=== PATIENT | male | born 1940 | race Caucasian/White ===

== ENCOUNTER 2016-01-06 08:20 | Outpatient (RCR) | payer MEDICARE ==
--- OUTSIDE RECORDS SUMMARY | 2015-12-18 12:53 | XMS REPORT ---
Author Author NIKITA LOWERY [facility] Address [address] [facility] [address] [place], [place] [id number] Care Team Providers Care Director Account Management Name Role Phone Eli LOWERY PCP Unavailable Allergies and Adverse Reactions Name Reaction Notes NO KNOWN DRUG ALLERGIES Plan of Treatment Not available. Medications Active Name Start Date Estimated Completion Date SIG Comments amitriptyline 100 mg oral tablet 01/17/2012 USE DIRECTED AT BEDTIME gabapentin 300 mg oral capsule 08/06/2013 TAKE ONE CAPSULE BY MOUTH THREE TIMES DAILY metformin 500 mg oral tablet 12/04/2013 TAKE ONE TABLET BY MOUTH TWICE DAILY gabapentin 300 mg oral capsule 12/04/2013 TAKE ONE CAPSULE BY MOUTH THREE TIMES DAILY Glucometer-M 04/21/2014 check sugars daily metformin 500 mg oral tablet 09/30/2014 TAKE ONE TABLET BY MOUTH TWICE DAILY gabapentin 300 mg oral capsule 12/19/2014 TAKE 1 CAPSULE THREE TIMES DAILY metformin 500 mg oral tablet 12/19/2014 TAKE 1 TABLET TWICE DAILY amitriptyline 100 mg oral tablet 02/27/2015 take 1 tablet (100 mg) by oral route once daily at bedtime lisinopril 20 mg oral tablet 02/27/2015 take 1 tablet (20 mg) by oral route once daily lisinopril 20 mg oral tablet 02/27/2015 TAKE 1 TABLET ONE TIME DAILY lisinopril 20 mg oral tablet 09/09/2015 TAKE 1 TABLET ONE TIME DAILY Cipro 500 mg oral tablet 10/20/2015 take 1 tablet (500 mg) by oral route 2 times per day Keflex 500 mg oral capsule 10/20/2015 take 1 capsule by oral route 3 times a day Name Start Date Expiration Date SIG Comments Ambien 10 mg oral tablet 03/31/2009 04/30/2009 1HSPRN FOR INSOMNIA - TAKE ONE TABLET BY MOUTH AT BEDTIME NEEDED FOR INSOMNIA ELAVIL 100MG TAB 100 each 07/31/2009 10/29/2009 FF USE DIRECTED AT BEDTIME - USE DIRECTED AT BEDTIME Neurontin 300 mg oral capsule 02/02/2010 05/03/2010 1TID - TAKE ONE CAPSULE BY MOUTH THREE TIMES DAILY AMBIEN 10MG TAB 10 each 07/06/2010 08/05/2010 1HSPRN FOR INSOMNIA - TAKE ONE TABLET BY MOUTH AT BEDTIME NEEDED FOR INSOMNIA Glucophage 500 mg oral tablet 07/13/2010 10/11/2010 1BID - TAKE ONE TABLET BY MOUTH TWICE DAILY Phenergan-Codeine 6.25-10 mg/5 mL oral syrup 03/02/2012 take 5 milliliters by oral route 4 times a day Zithromax Z-Lorne 250 mg oral tablet 12/25/2012 take 2 tablets (500 mg) by oral route once daily for 1 day then 1 tablet (250 mg) by oral route once daily for 4 days metformin 500 mg oral tablet 09/25/2012 12/24/2012 TAKE ONE TABLET BY MOUTH TWICE DAILY gabapentin 300 mg oral capsule 10/30/2012 01/28/2013 TAKE ONE CAPSULE BY MOUTH THREE TIMES DAILY zolpidem 10 mg oral tablet 02/27/2015 06/27/2015 TAKE ONE TABLET BY MOUTH AT BEDTIME NEEDED FOR INSOMNIA Cipro 500 mg oral tablet 10/03/2015 10/10/2015 take 1 tablet (500 mg) by oral route every 12 hours for 7 days Levaquin 500 mg oral tablet 10/15/2015 10/22/2015 take 1 tablet (500 mg) by oral route once daily for 7 days Discontinued Name Start Date Discontinued Date SIG Comments lisinopril 5 mg oral tablet 03/02/2012 12/28/2013 take 1 tablet (5 mg) by oral route once daily taking 40mg finasteride 5 mg oral tablet 01/01/2014 10/29/2014 take 1 tablet (5 mg) by oral route once daily Problem List Description Status Onset Diabetes Mellitus, Type II Active Neuropathy, Peripheral Active Benign localized hyperplasia of prostate without urinary obstruction and other lower urinary tract symptoms (LUTS) Active Hyperlipidemia, mixed Active Difficulty in urination Active 11/05/2013 Microalbuminuria due to type 2 diabetes mellitus Active 04/21/2014 History of diverticulosis Active 06/10/2014 Blood in the urine Active 10/29/2014 Bladder outflow obstruction Active 10/29/2014 Spermatocele Active 10/29/2014 Vital Signs Date Time BP-Sys(mm[Hg] BP-Haydee(mm[Hg]) HR(bpm) RR(rpm) Temp WT HT HC BMI BSA BMI Percentile O2 Sat(%) 10/15/2015 1:20:00 PM 110 mmHg 55 mmHg 98 bpm 18 rpm 95.5 F 229 lbs 70 in 32.86 kg/m2 2.26 m2 95 % 10/03/2015 6:37:00 PM 144 mmHg 74 mmHg 122 bpm 20 rpm 103.2 F 232 lbs 70 in 33.2882 kg/m 2.2798 m 94 % 09/01/2015 9:42:00 AM 140 mmHg 90 mmHg 105 bpm 18 rpm 98.4 F 231 lbs 70 in 33.14 kg/m2 2.27 m2 96 % 10/29/2014 7:59:00 AM 210 lbs 70 in 30.1316 kg/m 2.169 m 09/04/2014 8:45:00 AM 140 mmHg 80 mmHg 102 bpm 18 rpm 98.5 F 216 lbs 70.5 in 30.55 kg/m2 2.21 m2 97 % 06/26/2014 1:01:00 PM 140 mmHg 70 mmHg 103 bpm 18 rpm 96.4 F 211 lbs 70 in 30.275 kg/m 2.1742 m 95 % 06/06/2014 9:11:00 AM 120 mmHg 80 mmHg 88 bpm 18 rpm 97.7 F 216 lbs 70 in 30.99 kg/m2 2.20 m2 98 % 06/04/2014 8:55:00 AM 220 lbs 70.5 in 31.1202 kg/m 2.2279 m 04/30/2014 8:50:00 AM 150 mmHg 90 mmHg 96 bpm 18 rpm 97.9 F 218 lbs 70.5 in 30.84 kg/m2 2.22 m2 97 % 04/18/2014 2:08:00 PM 145 mmHg 85 mmHg 84 bpm 18 rpm 96.3 F 222 lbs 70.5 in 31.4031 kg/m 2.2381 m 97 % 11/05/2013 9:27:00 AM 220 lbs 70 in 31.57 kg/m2 2.22 m2 04/27/2013 12:56:00 PM 140 mmHg 74 mmHg 88 bpm 20 rpm 95.6 F 228 lbs 70 in 32.7143 kg/m 2.26 m 98 % 12/22/2012 9:18:00 AM 136 mmHg 64 mmHg 112 bpm 20 rpm 98.9 F 225 lbs 70 in 32.28 kg/m2 2.25 m2 96 % 03/02/2012 7:56:00 AM 144 mmHg 76 mmHg 100 bpm 16 rpm 96.2 F 220.312 lbs 70 in 31.6112 kg/m 2.2216 m 97 % 01/17/2012 8:03:00 AM 152 mmHg 80 mmHg 100 bpm 20 rpm 97.2 F 240 lbs 70 in 34.4361 kg/m 2.32 m2 97 % 05/11/2011 8:38:00 AM 140 mmHg 82 mmHg 86 bpm 227 lbs 70 in 32.57 kg/m2 2.2551 m 97 % 06/16/2009 8:58:00 AM 128 mmHg 80 mmHg 84 bpm 220 lbs 70 in 31.5664 kg/m 2.22 m2 Social History Name Description Comments Tobacco Former smoker some college Alcohol Use - Occasional Active but no formal exercise History of Procedures Date Ordered Description Order Status 10/20/2015 12:00 AM COMPLETE CBC W/AUTO DIFF WBC Returned 10/20/2015 12:00 AM COMPREHEN METABOLIC PANEL Returned 10/20/2015 12:00 AM GLYCOSYLATED HEMOGLOBIN TEST Returned 10/20/2015 12:00 AM LIPID PANEL Returned 10/20/2015 12:00 AM Prostate Cancer Screening Returned 10/20/2015 12:00 AM CREATININE OTHER SOURCE Returned 10/20/2015 12:00 AM ALBUMIN URINE MICROALBUMIN QUANTIATIVE Returned 05/11/2011 12:00 AM ROUTINE VENIPUNCTURE Reviewed 05/11/2011 12:00 AM COMPLETE CBC W/AUTO DIFF WBC Returned 05/11/2011 12:00 AM COMPREHEN METABOLIC PANEL Returned 05/11/2011 12:00 AM LIPID PANEL Returned 05/11/2011 12:00 AM GLYCOSYLATED HEMOGLOBIN TEST Returned 05/11/2011 12:00 AM MICROALBUMIN SEMIQUANT Returned 05/11/2011 12:00 AM ASSAY OF PSA TOTAL Returned 05/11/2011 12:00 AM URINALYSIS AUTO W/O SCOPE Reviewed 05/11/2011 12:00 AM Prostate Cancer Screening PSA Reviewed 03/02/2012 12:00 AM THER/PROPH/DIAG INJ SC/IM Reviewed 03/02/2012 12:00 AM Decadron, Per 1 Mg [facility]# [address]-24 Reviewed 03/02/2012 12:00 AM Depo-Medrol, Per 80 Mg [facility]#4657-7876-91 Reviewed 03/02/2012 12:00 AM Rocephin 1 gram [facility]#6949-0619-15 Reviewed 06/16/2009 12:00 AM URINALYSIS AUTO W/O SCOPE Reviewed 12/22/2012 12:00 AM THER/PROPH/DIAG INJ SC/IM Reviewed 12/22/2012 12:00 AM Decadron, Per 1 Mg [facility]# [address]-34 Reviewed 12/22/2012 12:00 AM Depo-Medrol, Per 80 Mg [facility]#9604-8554-44 Reviewed 04/27/2013 12:00 AM COMPLETE CBC W/AUTO DIFF WBC Reviewed 04/27/2013 12:00 AM COMPREHEN METABOLIC PANEL Reviewed 04/27/2013 12:00 AM GLYCOSYLATED HEMOGLOBIN TEST Reviewed 04/27/2013 12:00 AM LIPID PANEL Reviewed 04/27/2013 12:00 AM MICROALBUMIN QUANTITATIVE Reviewed 04/27/2013 12:00 AM ASSAY OF PSA TOTAL Reviewed 04/27/2013 12:00 AM ROUTINE VENIPUNCTURE Reviewed 04/27/2013 12:00 AM URINALYSIS AUTO W/O SCOPE Reviewed 04/27/2013 12:00 AM URINALYSIS AUTO W/O SCOPE Reviewed 11/05/2013 10:34 AM URINALYSIS AUTO W/O SCOPE Reviewed 11/05/2013 12:00 AM ASSAY OF PSA TOTAL Reviewed 04/10/2014 12:00 AM COMPLETE CBC W/AUTO DIFF WBC Reviewed 04/10/2014 12:00 AM COMPREHEN METABOLIC PANEL Reviewed 04/10/2014 12:00 AM GLYCOSYLATED HEMOGLOBIN TEST Reviewed 04/10/2014 12:00 AM LIPID PANEL Reviewed 04/10/2014 12:00 AM CREATININE OTHER SOURCE Reviewed 04/10/2014 12:00 AM ALBUMIN URINE MICROALBUMIN QUANTIATIVE Reviewed 04/30/2014 12:00 AM Dermatology Consult Reviewed 04/30/2014 12:00 AM DESTRUCT PREMALG LES 2-14 Reviewed 06/04/2014 12:00 AM ASSAY OF PSA TOTAL Reviewed 06/04/2014 12:00 AM ASSAY OF CREATININE Reviewed 06/26/2014 12:00 AM THER/PROPH/DIAG INJ SC/IM Reviewed 06/26/2014 12:00 AM Decadron, Per 1 Mg [facility]# [address]-35 Reviewed 06/26/2014 12:00 AM Depo-Medrol, Per 80 Mg [facility]#2771-4237-85 Reviewed 06/26/2014 12:00 AM Rocephin 1 gram [facility]#0163-4099-15 Reviewed 10/29/2014 12:00 AM ASSAY OF PSA TOTAL Reviewed 10/29/2014 8:48 AM URINALYSIS AUTO W/O SCOPE Reviewed Results Summary Data and Description Results 05/11/2011 3:45 PM WBC 5.4 RBC 4.85 HGB 13.90 g/dLHCT 41.10 %MCV 85.0 fLMCH 28.70 pgMCHC 33.80 g/dLRDW CV 13.70 %MPV 10.30 fLPLT 256 %NEUT 53.30 %%LYMP 28.80 %%MONO 13.60 %%EOS 3.90 %%BASO 0.40 %#NEUT 2.85 #LYMP 1.54 #MONO 0.73 # EOS 0.21 #BASO 0.02 GLUCOSE 108.0 mg/dLSODIUM 138.0 mmol/LPOTASSIUM 4.60 mmol/ LCHLORIDE 102.0 mmol/LCO2 27.0 mmol/LBUN 16.0 mg/dLCREATININE 0.90 mg/dLSGOT/ AST 18.0 IU/LSGPT/ALT 16.0 IU/LALK PHOS 85.0 IU/LTOTAL PROTEIN 7.10 g/dLALBUMIN 4.30 g/dLTOTAL BILI 0.30 mg/dLCALCIUM 9.30 mg/dLeGFR >60 mL/min/1.73 [id number] 88.0 mg/dLCHOLESTEROL 207.0 mg/dLHDL 36.0 mg/dLLDL (CALC) 153.0 mg/dLCREAT UR 157.70 mg/dLMICROALBUMIN UR 28.0 ug/mLALB:CREAT RATIO 18 PSA TOTAL 0.390 ng/mL 01/14/2012 7:02 AM WBC 5.2 RBC 4.60 HGB 13.0 g/dLHCT 39.20 %MCV 85.0 fLMCH 28.30 pgMCHC 33.20 g/dLRDW CV 13.60 %MPV 9.10 fLPLT 330 %NEUT 62.90 %%LYMP 25.90 %%MONO 8.10 %%EOS 2.70 %%BASO 0.40 %#NEUT 3.25 #LYMP 1.34 #MONO 0.42 #EOS 0.14 #BASO 0.02 GLUCOSE 121.0 mg/dLSODIUM 135.0 mmol/LPOTASSIUM 4.40 mmol/ LCHLORIDE 103.0 mmol/LCO2 26.0 mmol/LBUN 15.0 mg/dLCREATININE 1.0 mg/dLSGOT/AST 19.0 IU/LSGPT/ALT 16.0 IU/LALK PHOS 91.0 IU/LTOTAL PROTEIN 7.50 g/dLALBUMIN 4.0 g/dLTOTAL BILI 0.30 mg/dLCALCIUM 9.60 mg/dLeGFR 60 CREAT UR 127.10 mg/ dLMICROALBUMIN UR 14.0 ug/mLALB:CREAT RATIO 11 01/14/2012 7:20 AM TRIGLYCERIDES 95.0 mg/dLCHOLESTEROL 220.0 mg/dLHDL 32.0 mg/ dLLDL (CALC) 169.0 mg/dL 04/27/2013 2:51 PM Est Avg Glucose 134.1 mg/dLWBC 5.5 RBC 4.97 HGB 13.90 g/ dLHCT 42.0 %MCV 85.0 fLMCH 28.0 pgMCHC 33.10 g/dLRDW CV 14.10 %MPV 9.90 fLPLT 275 %NEUT 57.90 %%LYMP 28.70 %%MONO 11.20 %%EOS 2.0 %%BASO 0.20 %#NEUT 3.17 # LYMP 1.57 #MONO 0.61 #EOS 0.11 #BASO 0.01 GLUCOSE 117.0 mg/dLSODIUM 137.0 mmol/ LPOTASSIUM 4.80 mmol/LCHLORIDE 102.0 mmol/LCO2 25.0 mmol/LBUN 19.0 mg/ dLCREATININE 1.0 mg/dLSGOT/AST 32.0 IU/LSGPT/ALT 28.0 IU/LALK PHOS 85.0 IU/ LTOTAL PROTEIN 7.30 g/dLALBUMIN 4.30 g/dLTOTAL BILI 0.50 mg/dLCALCIUM 9.40 mg/ dLeGFR >60 mL/min/1.73 [id number] 104.0 mg/dLCHOLESTEROL 223.0 mg/dLHDL 41.0 mg/dLLDL (CALC) 161.0 mg/dLCREAT UR 98.90 mg/dLMICROALBUMIN UR 38.0 ug/ mLALB:CREAT RATIO 38 PSA TOTAL 0.40 ng/mL 11/05/2013 10:34 AM Bilirub Ur Ql Strip -ve Glucose Ur-sCnc tr Hgb Ur Ql Strip -ve Ketones Ur Ql Strip -ve Nitrite Ur Ql Strip -ve pH Ur-LsCnc 6.0 Prot Ur Ql Strip -ve Sp Gr Ur Qn 1015 Urobilinogen Ur-mCnc -ve WBC Est Ur Ql Strip -ve 11/09/2013 1:10 PM PSA TOTAL 0.340 ng/mL 04/11/2014 6:30 AM GLUCOSE 127.0 mg/dLSODIUM 136.0 mmol/LPOTASSIUM 4.50 mmol/ LCHLORIDE 103.0 mmol/LCO2 22.0 mmol/LBUN 19.0 mg/dLCREATININE 1.10 mg/dLSGOT/ AST 27.0 IU/LSGPT/ALT 26.0 IU/LALK PHOS 95.0 IU/LTOTAL PROTEIN 8.0 g/dLALBUMIN 4.40 g/dLTOTAL BILI 0.40 mg/dLCALCIUM 10.10 mg/dLeGFR >60 mL/min/1.73 [id number] 101.0 mg/dLCHOLESTEROL 235.0 mg/dLHDL 36.0 mg/dLLDL (CALC) 179.0 mg/dLWBC 5.7 RBC 5.11 HGB 13.70 g/dLHCT 42.50 %MCV 83.0 fLMCH 26.80 pgMCHC 32.20 g/dLRDW CV 14.10 %MPV 9.70 fLPLT 286 %NEUT 56.80 %%LYMP 31.30 %% MONO 8.20 %%EOS 3.50 %%BASO 0.20 %#NEUT 3.24 #LYMP 1.79 #MONO 0.47 #EOS 0.20 # BASO 0.01 MICROALBUMIN UR 74.0 ug/mLCREAT UR RAND 223.50 mg/dLEst Avg Glucose 137.0 mg/dL 05/01/2014 7:55 AM GLUCOSE 125.0 mg/dLTRIGLYCERIDES 160.0 mg/dLCHOLESTEROL 182.0 mg/dL 06/04/2014 9:45 AM CREATININE 1.0 mg/dLeGFR >60 mL/min/1.73 m2PSA TOTAL 0.440 ng/mL 10/29/2014 8:48 AM Clarity Ur CLEAR Color Ur ----- Glucose Ur-sCnc -VE Bilirub Ur Ql Strip -VE Ketones Ur Ql Strip -VE Sp Gr Ur Qn 1015 Hgb Ur Ql Strip -VE pH Ur-LsCnc 6.0 Prot Ur Ql Strip -VE Urobilinogen Ur-mCnc -VE Nitrite Ur Ql Strip - VE WBC Est Ur Ql Strip -VE 10/29/2014 8:50 AM PSA TOTAL 1.20 ng/mL 10/22/2015 10:15 AM WBC 7.3 RBC 3.75 HGB 8.80 g/dLHCT 29.20 %MCV 78.0 fLMCH 23.50 pgMCHC 30.10 g/dLRDW CV 17.30 %MPV 8.70 fLPLT 282 %NEUT 82.10 %%LYMP 9.30 %%MONO 7.10 %%EOS 0.70 %%BASO 0.10 %#NEUT 5.98 #LYMP 0.68 #MONO 0.52 #EOS 0.05 # BASO 0.01 Est Avg Glucose 145.6 mg/dLCREAT UR RAND 51.40 mg/dLGLUCOSE 197.0 mg/ dLSODIUM 133.0 mmol/LPOTASSIUM 4.50 mmol/LCHLORIDE 99.0 mmol/LCO2 25.0 mmol/ LBUN 17.0 mg/dLCREATININE 1.0 mg/dLSGOT/AST 25.0 IU/LSGPT/ALT 24.0 IU/LALK PHOS 88.0 IU/LTOTAL PROTEIN 7.10 g/dLALBUMIN 3.50 g/dLTOTAL BILI 0.40 mg/dLCALCIUM 9.30 mg/dLeGFR >60 mL/min/1.73mPSA TOTAL 2.920 ng/mLTRIGLYCERIDES 85.0 mg/ dLCHOLESTEROL 142.0 mg/dLHDL 25.0 mg/dLLDL (CALC) 100.0 mg/dLMICROALBUMIN UR 19.0 ug/mL History Of Immunizations Not available. History of Past Illness Name Date of Onset Comments General Medical Exam, Adult Jun 16 2009 9:00AM Diabetes Mellitus, Type II Benign localized hyperplasia of prostate without urinary obstruction and other lower urinary tract symptoms (LUTS) Neuropathy, Peripheral Hyperlipidemia, mixed Difficulty in urination 11/05/2013 Microalbuminuria due to type 2 diabetes mellitus 04/21/2014 History of diverticulosis 06/10/2014 Blood in the urine 10/29/2014 Bladder outflow obstruction 10/29/2014 Spermatocele 10/29/2014 Coronary Artery Disease May 11 2011 8:34AM Hypertension May 11 2011 8:34AM Diabetes Mellitus, Type II May 11 2011 8:34AM General Medical Exam, Adult May 11 2011 8:43AM Diabetes Mellitus, Type II Jan 17 2012 8:05AM Hyperlipidemia, unspecified Jan 17 2012 8:05AM General Medical Exam, Adult Jan 17 2012 8:05AM Peripheral Neuropathy Jan 17 2012 8:05AM Cough Mar 02 2012 7:57AM Post-nasal drainage Mar 02 2012 7:57AM Upper Respiratory Infection Mar 02 2012 7:57AM Pharyngitis, Acute Dec 22 2012 9:19AM Post-nasal drainage Dec 22 2012 9:19AM Upper Respiratory Infection Dec 22 2012 9:19AM Diabetes Mellitus, Type II With Neurological Manifestations, not stated as uncontrolled Apr 27 2013 12:00PM Neuropathy, Peripheral Apr 27 2013 12:00PM Benign localized hyperplasia of prostate without urinary obstruction and other lower urinary tract symptoms (LUTS) Apr 27 2013 12:00PM Hyperlipidemia, Mixed Apr 27 2013 12:00PM DOT Physical Apr 27 2013 12:57PM Difficulty in urination Stable Nov 05 2013 9:04AM Moderate Benign hypertrophy of prostate Nov 05 2013 9:04AM Diabetes Mellitus, Type II Apr 10 2014 10:59AM Hyperlipidemia, mixed Apr 10 2014 10:59AM Diabetes Mellitus, Type II Apr 18 2014 2:08PM Hyperlipidemia, unspecified Apr 18 2014 2:08PM Insomnia Apr 18 2014 2:08PM Dietary Counseling Apr 18 2014 2:08PM Exercise Counseling Apr 18 2014 2:08PM Body Mass Index [BMI]; body mass index between 30-39, adult; body mass index 32.0-32.9, adult Apr 18 2014 2:08PM Neuropathy, Peripheral Apr 18 2014 2:08PM Benign localized hyperplasia of prostate without urinary obstruction and other lower urinary tract symptoms (LUTS) Apr 18 2014 2:08PM Hyperlipidemia, Mixed Apr 18 2014 2:08PM Microalbuminuria due to type 2 diabetes mellitus Apr 18 2014 2:08PM Rash Apr 30 2014 9:49AM Seborrheic Keratosis, Inflamed Apr 30 2014 8:50AM Seborrheic Keratosis, Inflamed Apr 30 2014 9:58AM Hematuria Jun 04 2014 9:25AM Essential Hypertension Jun 06 2014 9:12AM History of diverticulosis Jun 06 2014 9:12AM Benign hypertrophy of prostate Jun 06 2014 9:12AM Microalbuminuria due to type 2 diabetes mellitus Jun 06 2014 9:12AM Neuropathy, Peripheral Jun 06 2014 9:12AM Hyperlipidemia, Mixed Jun 06 2014 9:12AM Pharyngitis, Acute Jun 26 2014 1:02PM Post-nasal drainage Jun 26 2014 1:02PM Respiratory System And Chest Symptoms Jun 26 2014 1:02PM DOT Physical Sep 04 2014 8:45AM Benign prostatic hypertrophy Oct 29 2014 8:26AM Hematuria Oct 29 2014 8:26AM Blood in the urine Oct 29 2014 8:00AM Benign hypertrophy of prostate Oct 29 2014 8:00AM Bladder outflow obstruction Oct 29 2014 8:00AM Right Spermatocele Stable Oct 29 2014 8:00AM DOT Physical Sep 01 2015 9:42AM Bronchitis Oct 03 2015 6:37PM Type 2 diabetes mellitus without complication Oct 15 2015 1:20PM Fever and chills Oct 15 2015 1:20PM Follow-up visit after completion of treatment Oct 15 2015 1:20PM History of diverticulosis Oct 15 2015 1:20PM Diabetes Mellitus, Type II Oct 20 2015 1:43PM Hyperlipidemia, mixed Oct 20 2015 1:43PM Payers Insurance Name Company Name Plan Name Plan Number Policy Number Policy Group Number Start Date Medicare Part A Medicare RHC [id number] N/A BCBS [facility] [id number] N/A RFB RFB [employer] PHYSICAL N/A Medicare Part B Medicare Of [place] [id number] N/A Medicare Part A Medicare - Lab/Xray [id number] N/A Medicare Part A Medicare Part A [id number] N/A History of Encounters Visit Date Visit Type Provider 10/23/2015 Office visit NIKITA CRESPO 10/15/2015 Office visit NIKITA CRESPO 10/03/2015 Office visit Raimundo Chavis PA-C 09/01/2015 Office visit NIKITA CRESPO 10/29/2014 Office visit Jose Toure MD 09/04/2014 Office visit NIKITA CRESPO 06/26/2014 Office visit 06/26/2014 Office visit NIKITA CRESPO 06/24/2014 [facility] Jose Toure MD 06/06/2014 Office visit NIKITA CRESPO 06/04/2014 Office visit Jose Toure MD 04/30/2014 Office visit NIKITA CRESPO 04/18/2014 Office visit NIKITA CRESPO 11/05/2013 Office visit Jose Toure MD 04/27/2013 Office visit NIKITA CRESPO 04/27/2013 Office visit NIKITA CRESPO 12/22/2012 Office visit NIKITA CRESPO 03/02/2012 Office visit NIKITA CRESPO 01/17/2012 Office visit NIKITA CRESPO 08/06/2011 Voided NIKITA CRESPO 05/11/2011 Office visit NIKITA CRESPO 05/11/2011 Office visit NIKITA CRESPO 06/16/2009 Office visit Nikita Lowery PA-C 11/20/2008 Office visit Nikita Lowery PA-C
[2015-12-18 13:32] LABS: BASOPHILS % (AUTO) 0 % (0-10); EOSINOPHILS % (AUTO) 0 % (0-10); LYMPHOCYTES # (AUTO) 0.7 X 10^3 (1.0-4.0); LYMPHOCYTES % (AUTO) 9 % (12-44); MEAN CORPUSCULAR HEMOGLOBIN 24 PG (25-34); MEAN CORPUSCULAR HGB CONC 31 G/DL (32-36); MEAN CORPUSCULAR VOLUME 77 FL (80-99); MEAN PLATELET VOLUME 8.4 FL (7.4-10.4); MONOCYTES # (AUTO) 0.7 X 10^3 (0.0-1.0); MONOCYTES % (AUTO) 11 % (0-12); NEUTROPHILS # (AUTO) 5.6 X 10^3 (1.8-7.8); NEUTROPHILS % (AUTO) 80 % (42-75); PLATELET COUNT 301 10^3/uL (130-400); RED BLOOD COUNT 3.68 10^6/uL (4.35-5.85); RED CELL DISTRIBUTION WIDTH 18.1 % (10.0-14.5)
[2015-12-18 14:06] LABS: PEP REPORT SEE PATH REPORT
[2015-12-19 03:30] LABS: LIGHT CHAIN KAPPA SERUM QUANT 59.04 mg/L (3.30-19.40); LIGHT CHAIN LAMBDA SERUM QUANT 34.63 mg/L (5.71-26.30)
[2015-12-19 19:10] LABS: %SAT TOTAL IRON BINDING CAPIC 7 % (15-50); TIBC 275 ug/dL (280-380)
[2015-12-22 06:35] LABS: UIBC 257 ug/dL (55-450)
[2015-12-22 06:38] LABS: FERRITIN 82 ng/mL (25-300)
[2015-12-23 07:21] LABS: CLIN PATHOLOGY REPORT FOOTNOTE; SERUM PROTEIN ELEC DETAIL L-16-0013712
[2015-12-25 14:04] LABS: BASOPHILS % (AUTO) 0 % (0-10); EOSINOPHILS # (AUTO) 0.1 10^3/uL (0.0-0.3); EOSINOPHILS % (AUTO) 1 % (0-10); LYMPHOCYTES # (AUTO) 0.9 X 10^3 (1.0-4.0); LYMPHOCYTES % (AUTO) 16 % (12-44); MEAN CORPUSCULAR HEMOGLOBIN 24 PG (25-34); MEAN CORPUSCULAR HGB CONC 31 G/DL (32-36); MEAN CORPUSCULAR VOLUME 77 FL (80-99); MEAN PLATELET VOLUME 7.9 FL (7.4-10.4); MONOCYTES # (AUTO) 0.8 X 10^3 (0.0-1.0); MONOCYTES % (AUTO) 14 % (0-12); NEUTROPHILS # (AUTO) 3.8 X 10^3 (1.8-7.8); NEUTROPHILS % (AUTO) 68 % (42-75); PLATELET COUNT 311 10^3/uL (130-400); RED BLOOD COUNT 3.73 10^6/uL (4.35-5.85); RED CELL DISTRIBUTION WIDTH 17.8 % (10.0-14.5); RETICULOCYTE % 1.41 % (0.50-2.40); WHITE BLOOD COUNT 5.6 10^3/uL (4.3-11.0)
[2015-12-25 14:45] LABS: ALANINE AMINOTRANSFERASE 32 U/L (0-55); ALBUMIN 3.5 G/DL (3.2-4.5); ANION GAP 6 MMOL/L (5-14); ASPARTATE AMINO TRANSFERASE 29 U/L (5-34); BILIRUBIN,TOTAL 0.3 MG/DL (0.1-1.0); BLOOD UREA NITROGEN 16 MG/DL (7-18); BUN/CREATININE RATIO 17; CALCIUM 9.6 MG/DL (8.5-10.1); CARBON DIOXIDE 25 MMOL/L (21-32); CHLORIDE 103 MMOL/L (98-107); CREATININE SERUM 0.95 MG/DL (0.60-1.30); GFR ESTIMATED > 60; GLUCOSE 120 MG/DL (70-105); LACTATE DEHYDROGENASE 237 U/L (125-220); POTASSIUM 4.4 MMOL/L (3.6-5.0); SODIUM 134 MMOL/L (135-145); TOTAL PROTEIN 7.2 G/DL (6.4-8.2); hs C REACTIVE PROTEIN 11.25 MG/DL (0.00-0.50)
[2015-12-25 15:00] LABS: ERYTHROCYTE SEDIMENTATION RATE 32 MM/HR (0-30)
[2016-01-06 08:55] LABS: BASOPHILS % (AUTO) 0 % (0-10); EOSINOPHILS % (AUTO) 0 % (0-10); LYMPHOCYTES # (AUTO) 0.6 X 10^3 (1.0-4.0); LYMPHOCYTES % (AUTO) 5 % (12-44); MEAN CORPUSCULAR HEMOGLOBIN 26 PG (25-34); MEAN CORPUSCULAR HGB CONC 33 G/DL (32-36); MEAN CORPUSCULAR VOLUME 78 FL (80-99); MEAN PLATELET VOLUME 8.3 FL (7.4-10.4); MONOCYTES # (AUTO) 0.8 X 10^3 (0.0-1.0); MONOCYTES % (AUTO) 7 % (0-12); NEUTROPHILS # (AUTO) 10.5 X 10^3 (1.8-7.8); NEUTROPHILS % (AUTO) 88 % (42-75); PLATELET COUNT 296 10^3/uL (130-400); WHITE BLOOD COUNT 11.9 10^3/uL (4.3-11.0)
[2016-01-07] MEDS ORDERED: MULT1TAB69 PO (11:17)
[2016-01-07] MEDS ORDERED: LISI-552 PO (11:17)
[2016-01-07] MEDS ORDERED: DOCU100C37 PO (11:17)
[2016-01-07] MEDS ORDERED: METF500T4 PO (11:17)
[2016-01-07] MEDS ORDERED: ZOLP10TA5 PO (11:17)
[2016-01-07] MEDS ORDERED: AMIT100T2 PO (11:17)
[2016-01-07] MEDS ORDERED: GRAP50CA5 PO (11:17)
[2016-01-07] MEDS ORDERED: AMOX-358 PO (11:17)
[2016-01-07] MEDS ORDERED: FERR-74 PO (11:17)
[2016-01-07] MEDS ORDERED: GABA-488 PO (11:17)
[2016-01-07] MEDS ORDERED: RANI-515 PO (11:17)
[2016-01-07] MEDS ORDERED: CALC-6 PO (11:17)
[2016-01-07] MEDS ORDERED: OMEG-160 PO (11:29)
[2016-01-09] MEDS ORDERED: AMPI2VIA IV (10:23)
[2016-01-09] MEDS ORDERED: GENT100P4 IV (10:23)
[2016-01-19] MEDS ORDERED: AMPI2VIA IV (10:12)
[2016-01-19] MEDS ORDERED: [UNRECOGNIZED DRUG - CODE] IV (10:12)
== END 2016-03-17 | disposition home or self-care (01) ==
LOC: ONC 08:20
PROVIDERS: ATTEND Internal Medicine Hematology & Oncology
DX: D64.9 Anemia, unspecified (principal)
CPT/HCPCS: 36415; 80053; 82728; 83540; 83615; 83883; 84155; 84165; 85025; 85045; 85652; 86141; 87070; 87205; 99213; 99214

== ENCOUNTER → 2016-03-04 | Day surgery (SDC) | payer MEDICARE ==
[~2016-03-04] VITALS: Ht 177.8 cm; Wt 101.6 kg
[~2016-03-04] MED LIST: AMIT100T2 PO; AMOX-358 PO; AMPI2VIA IV; CALC-6 PO; DOCU100C37 PO; FERR-74 PO; GABA-488 PO; GENT100P4 IV; GRAP50CA5 PO; LISI-552 PO; METF500T4 PO; MULT1TAB69 PO; OMEG-160 PO; RANI-515 PO; ZOLP10TA5 PO; [UNRECOGNIZED DRUG - CODE] IV
--- OUTSIDE RECORDS SUMMARY | 2016-03-04 17:30 | XMS REPORT | Continuity of Care Document ---
Author Author [facility] Organization [facility] Address Unknown Phone Unavailable Care Team Providers [facility] Social Worker Name Role Phone France Ferrara PCP [phone] Source Comments Some departments are not documenting in the electronic medical record. If you do not see the information that you expected, contact Release of Information in the Health Information Management department at [phone] for further assistance in locating additional records.[facility] Active Allergies and Adverse Reactions No Known Allergies Current Medications Prescription Sig. Disp. Refills Start End Date Status Date amitriptyline (ELAVIL) 50 Take 50 mg by mouth at Active mg tablet bedtime daily. calcium carbonate/vitamin Take 1 Tab by mouth Active D-3 (OSCAL-500+D) 1250 daily. Calcium Carb mg/200 unit tablet 1250mg delivers 500mg elemental Ca docusate (COLACE) 100 mg Take 200 mg by mouth at Active capsule bedtime daily. ferrous sulfate (FEOSOL, Take 325 mg by mouth Active FEROSUL) 325 mg (65 mg twice daily. Take on an iron) tablet empty stomach at least 1 hour before or 2 hours after food. Grape Seed Extract 50 mg Take 50 mg by mouth Active cap daily. metFORMIN (GLUCOPHAGE) Take 500 mg by mouth Active 500 mg tablet twice daily with meals. MULTIVITAMIN PO Take 1 Tab by mouth Active daily. fish oil- omega 3-DHA/EPA Take 1 Cap by mouth Active 300/1,000 mg capsule daily. zolpidem (AMBIEN) 10 mg Take 10 mg by mouth at Active tablet bedtime as needed for Sleep. gabapentin (NEURONTIN) Take 300 mg by mouth Active 300 mg capsule three times daily. aspirin 81 mg chewable Chew 1 Tab by mouth 90 Tab 3 02/23/19 Active tablet daily. Take with food. 17 oxyCODONE/acetaminophen Take 1-2 Tabs by mouth 30 Tab 0 02/23/19 Active (PERCOCET) 5/325 mg every 4 hours as needed 17 tablet for Pain Earliest Fill Date: 02/24/16 Max 12 tabs/day atorvastatin (LIPITOR) 40 Take 1 Tab by mouth 90 Tab 3 02/23/19 Active mg tablet daily. 17 senna/docusate Take 2 Tabs by mouth 60 Tab 0 02/23/19 Active (SENOKOT-S) 8.6/50 mg twice daily. 17 tablet amiodarone (CORDARONE) Take 400mg PO BID x 2 02/23/19 Active 200 mg tablet weeks, then take 200mg PO 17 BID x 2 weeks, then take 200mg PO daily then stop taking warfarin (COUMADIN) 2 mg Take 1 Tab by mouth at 90 Tab 3 02/23/19 Active tablet bedtime daily. 17 metoprolol tartrate Take 1 Tab by mouth twice 180 Tab 3 02/23/19 Active (LOPRESSOR) 50 mg tablet daily. 17 cefTRIAXone (ROCEPHIN) 2 Administer 20 mL through 360 mL 0 02/23/19 03/04/19 Active g solr vein every 12 hours for 9 17 17 days. ampicillin (OMNIPEN) 2 Administer 2 g through 02/23/19 03/04/19 Active g/10 mL 2 g in sodium vein every 4 hours for 9 17 17 chloride 0.9% (NS) 0.9 % days. 100 mL IVPB (MB+) Ampicillin Sodium 2 gram Administer 2 g through 02/23/19 Discontin solr vein every 6 hours. 17 ued GABAPENTIN PO Take 300 mg by mouth 02/14/20 Discontin three times daily. 16 ued GENTAMICIN/SODIUM Administer 80 mg through 02/23/19 Discontin CHLORIDE (GENTAMICIN IN vein twice daily. 17 ued 0.9 % SODIUM CHL IV) lisinopril (PRINIVIL; Take 20 mg by mouth 02/23/19 Discontin ZESTRIL) 20 mg tablet daily. 17 ued ranitidine hcl(+) Take 150 mg by mouth at 02/14/20 Discontin (ZANTAC) 150 mg tablet bedtime as needed for 16 ued Heartburn. 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 Infectious Diseases Mirela Randall MD Antibiotic Therapy 02/25/2016 Telephone Infectious Diseases Mirela Randall MD Outpatient Antibiotic Therapy (Opat) 02/18/2016 Surgery Mary Adams MD REPLACEMENT AORTIC VALVE 02/17/2016 Anesthesia Diego Sharma MD Event 02/13/2016 Surgery Cardiology Cath, Physician Left Heart Catheterization 02/12/2016 [facility] Chino Fitzgerald MD Infective endocarditis of - Encounter Michael Anton MD aortic valve 02/24/2016 Mary Adams MD 01/28/2016 Ancillary Radiology Outpatient, Radiologist Diagnosis unknown Orders (Primary Dx) 01/07/2016 Hospital Radiology Encounter Social History Tobacco Use Types Packs/Day Years Used Date Former Smoker Cigarettes Quit: 02/12/1976 Alcohol Use Drinks/Week oz/Week Comments No 0 Standard 0.0 drinks or equivalent Last Filed Vital Signs Vital Sign Reading Time Taken Blood Pressure 147/78 02/24/2016 11:10 AM SALES SECRETARY Pulse 84 02/24/2016 11:10 AM SALES SECRETARY Temperature 36.5 C (97.7 F) 02/24/2016 11:10 AM SALES SECRETARY Respiratory Rate - - Height 1.778 m (5' 10") 02/19/2016 6:00 AM SALES SECRETARY Weight 100.699 kg (222 lb) 02/24/2016 6:05 AM SALES SECRETARY Body Mass Index 31.85 02/24/2016 6:05 AM SALES SECRETARY Oxygen Saturation 98% 02/24/2016 11:10 AM SALES SECRETARY Plan of Care Date Type Specialty Providers Description 03/10/2016 Appointment Cardiothoracic Surgery Mary Adams MD [address] [facility] [address] [place] [address] [phone] (Fax) Health Maintenance Due Date Last Done Comments Physical (Comprehensive) 1947 Exam Pertussis Vaccine 1950 Tetanus Vaccine 1956 Shingles Vaccine 1999 Prevnar/Pneumovax (#1) 2004 Influenza Vaccine 10/23/2015 Procedures from Last 3 Months Procedure Name Priority Date/Time Associated Diagnosis Comments TELEMETRY STRIPS-SCAN 02/27/2016 Results for this 8:03 AM SALES SECRETARY procedure are in the results section. TELEMETRY STRIPS-SCAN 02/27/2016 Results for this 8:03 AM SALES SECRETARY procedure are in the results section. TELEMETRY STRIPS-SCAN 02/27/2016 Results for this 8:03 AM SALES SECRETARY procedure are in the results section. TELEMETRY STRIPS-SCAN 02/27/2016 Results for this 8:03 AM SALES SECRETARY procedure are in the results section. TELEMETRY STRIPS-SCAN 02/27/2016 Results for this 8:03 AM SALES SECRETARY procedure are in the results section. TELEMETRY STRIPS-SCAN 02/27/2016 Results for this 8:01 AM SALES SECRETARY procedure are in the results section. TELEMETRY STRIPS-SCAN 02/27/2016 Results for this 8:01 AM SALES SECRETARY procedure are in the results section. TELEMETRY STRIPS-SCAN 02/27/2016 Results for this 8:01 AM SALES SECRETARY procedure are in the results section. TELEMETRY STRIPS-SCAN 02/27/2016 Results for this 8:01 AM SALES SECRETARY procedure are in the results section. TELEMETRY STRIPS-SCAN 02/27/2016 Results for this 8:01 AM SALES SECRETARY procedure are in the results section. PULMONARY FUNCTION 02/26/2016 Results for this STUDY-SCAN 11:30 AM SALES SECRETARY procedure are in the results section. PROCEDURE RECORD-SCAN 02/26/2016 Results for this 11:30 AM SALES SECRETARY procedure are in the results section. PROCEDURE RECORD-SCAN 02/26/2016 Results for this 11:29 AM SALES SECRETARY procedure are in the results section. ECG UNCONFIRMED-SCAN 02/26/2016 Results for this 11:26 AM SALES SECRETARY procedure are in the results section. ECG UNCONFIRMED-SCAN 02/26/2016 Results for this 11:26 AM SALES SECRETARY procedure are in the results section. ECG UNCONFIRMED-SCAN 02/26/2016 Results for this 11:26 AM SALES SECRETARY procedure are in the results section. ECG-SCAN 02/26/2016 Results for this 11:25 AM SALES SECRETARY procedure are in the results section. ECG-SCAN 02/26/2016 Results for this 9:26 AM SALES SECRETARY procedure are in the results section. ECG-SCAN 02/21/2016 Results for this 7:14 AM SALES SECRETARY procedure are in the results section. ECG-SCAN 02/20/2016 Results for this 7:15 AM SALES SECRETARY procedure are in the results section. ANESTHESIA Routine 02/18/2016 Results for this TRANSEESOPHAGEAL 11:53 AM SALES SECRETARY procedure are in the ECHOCARDIOGRAM results section. ANESTHESIA PULMONARY Routine 02/18/2016 Results for this ARTERY CATHETER INSERTION 11:53 AM SALES SECRETARY procedure are in the results section. ANESTHESIA CENTRAL LINE Routine 02/18/2016 Results for this INSERTION 11:53 AM SALES SECRETARY procedure are in the results section. ANESTHESIA ARTERIAL LINE Routine 02/18/2016 Results for this INSERTION 11:53 AM SALES SECRETARY procedure are in the results section. ECG-SCAN 02/14/2016 Results for this 8:56 AM SALES SECRETARY procedure are in the results section. Results from Last 3 Months BUN (03/01/2016) Component Value Range Blood Urea Nitrogen 14 Specimen Blood ALT (SGPT) (03/01/2016) Component Value Range ALT (SGPT) 21 Specimen Blood AST (SGOT) (03/01/2016) Component Value Range AST (SGOT) 28 Specimen Blood POTASSIUM (03/01/2016)Only the most recent of 2 results within the time period is included. Component Value Range Potassium 5.0 Specimen Blood ALK PHOS TOTAL (03/01/2016) Component Value Range Alk Phosphatase 102 Specimen Blood CREATININE (03/01/2016) Component Value Range Creatinine 1.0 Specimen Blood PLATELET COUNT (03/01/2016) Component Value Range Platelet Count 329 Specimen Blood CBC (03/01/2016)Only the most recent of 9 results within the time period is included. Component Value Range White Blood Cells 8.8 Specimen Blood HEMOGLOBIN (03/01/2016) Component Value Range Hemoglobin 8.8 Specimen Blood TELEMETRY STRIPS-SCAN (02/27/2016 8:03 AM) Narrative Ordered by an unspecified provider. TELEMETRY STRIPS-SCAN (02/27/2016 8:03 AM) Narrative Ordered by an unspecified provider. TELEMETRY STRIPS-SCAN (02/27/2016 8:03 AM) Narrative Ordered by an unspecified provider. TELEMETRY STRIPS-SCAN (02/27/2016 8:03 AM) Narrative Ordered by an unspecified provider. TELEMETRY STRIPS-SCAN (02/27/2016 8:03 AM) Narrative Ordered by an unspecified provider. TELEMETRY STRIPS-SCAN (02/27/2016 8:01 AM) Narrative Ordered by an unspecified provider. TELEMETRY STRIPS-SCAN (02/27/2016 8:01 AM) Narrative Ordered by an unspecified provider. TELEMETRY STRIPS-SCAN (02/27/2016 8:01 AM) Narrative Ordered by an unspecified provider. TELEMETRY STRIPS-SCAN (02/27/2016 8:01 AM) Narrative Ordered by an unspecified provider. TELEMETRY STRIPS-SCAN (02/27/2016 8:01 AM) Narrative Ordered by an unspecified provider. PULMONARY FUNCTION STUDY-SCAN (02/26/2016 11:30 AM) Narrative Ordered by an unspecified provider. PROCEDURE RECORD-SCAN (02/26/2016 11:30 AM) Narrative Ordered by an unspecified provider. PROCEDURE RECORD-SCAN (02/26/2016 11:29 AM) Narrative Ordered by an unspecified provider. ECG UNCONFIRMED-SCAN (02/26/2016 11:26 AM) Narrative Ordered by an unspecified provider. ECG UNCONFIRMED-SCAN (02/26/2016 11:26 AM) Narrative Ordered by an unspecified provider. ECG UNCONFIRMED-SCAN (02/26/2016 11:26 AM) Narrative Ordered by an unspecified provider. ECG-SCAN (02/26/2016 11:25 AM) Narrative Ordered by an unspecified provider. ECG-SCAN (02/26/2016 9:26 AM) Narrative Ordered by an unspecified provider. POC GLUCOSE (02/24/2016 7:14 AM)Only the most recent of 69 results within the time period is included. Component Value Range Glucose, POC 138 (H) 70-100 MG/DL PROTIME INR (PT) (02/24/2016 3:15 AM)Only the most recent of 7 results within the time period is included. Component Value Range INR 2.2 (H) 0.8-1.2 Specimen Blood BASIC METABOLIC PANEL (02/24/2016 3:15 AM)Only the most recent of 15 results within the time period is included. Component Value Range Sodium 132 (L) 137-147 MMOL/L Potassium 4.5 3.5-5.1 MMOL/L Chloride 99 98-110 MMOL/L CO2 28 21-30 MMOL/L Anion Gap 5 3-12 Glucose 111 (H) 70-100 MG/DL Blood Urea Nitrogen 22 7-25 MG/DL Creatinine 1.07 0.4-1.24 MG/DL Calcium 9.0 8.5-10.6 MG/DL eGFR Non >60Comment: >60 mL/min The eGFR is not validated for use in drug dosing adjustments. Continue to use estimated creatinine clearance per dosing reference text. Please contact the Clinical Pharmacist for questions. eGFR >60Comment: >60 mL/min The eGFR is not validated for use in drug dosing adjustments. Continue to use estimated creatinine clearance per dosing reference text. Please contact the Clinical Pharmacist for questions. Specimen Blood CHEST 2 VIEWS (02/23/2016 5:36 AM) Impressions Essentially stable bilateral pleural effusions and adjacent atelectasis. Unchanged enlargement of the cardiac silhouette. Approved by Antonia Pimentel M.D. on 02/24/2016 9:21 AM By my electronic signature, I attest that I have personally reviewed the images for this examination and formulated the interpretations and opinions expressed in this report Finalized by José Álvarez M.D. on 02/24/2016 1:03 PM. Dictated by Antonia Pimentel M.D. on 02/24/2016 8:12 AM. Narrative CHEST 2 VIEWS Clinical Indication:eval effusions. Comparison: Chest radiograph 02/21/2016. Findings: Right PICC remains in similar position. Note is again made of prior median sternotomy and aortic valve replacement. Lung volumes remain low with bilateral pleural effusions and adjacent atelectasis, which show no significant interval change allowing for differences in projection and technique. There is stable enlargement of the cardiac silhouette without associated pulmonary vascular congestion. No pneumothorax. Procedure Note Interface, Radiant Results - Tue Feb 24, 2016 1:06 PM SALES SECRETARY CHEST 2 VIEWS Clinical Indication: eval effusions. Comparison: Chest radiograph 02/21/2016. Findings: Right PICC remains in similar position. Note is again made of prior median sternotomy and aortic valve replacement. Lung volumes remain low with bilateral pleural effusions and adjacent atelectasis, which show no significant interval change allowing for differences in projection and technique. There is stable enlargement of the cardiac silhouette without associated pulmonary vascular congestion. No pneumothorax. IMPRESSION Essentially stable bilateral pleural effusions and adjacent atelectasis. Unchanged enlargement of the cardiac silhouette. Approved by Antonia Pimentel M.D. on 02/24/2016 9:21 AM By my electronic signature, I attest that I have personally reviewed the images for this examination and formulated the interpretations and opinions expressed in this report Finalized by José Álvarez M.D. on 02/24/2016 1:03 PM. Dictated by Antonia Pimentel M.D. on 02/24/2016 8:12 AM. PTT (APTT) (02/23/2016 5:30 AM)Only the most recent of 5 results within the time period is included. Component Value Range APTT 44.9 (H) 24.0-40.0 SEC CHEST SINGLE VIEW (02/21/2016 8:33 AM)Only the most recent of 6 results within the time period is included. Impressions Persistent mild cardiomegaly with small bilateral pleural effusions and adjacent atelectasis. Approved by Mare Puga M.D. on 02/22/2016 8:57 AM By my electronic signature, I attest that I have personally reviewed the images for this examination and formulated the interpretations and opinions expressed in this report Finalized by Neil Panda M.D. on 02/22/2016 9:32 AM. Dictated by Mare Puga M.D. on 02/22/2016 7:48 AM. Narrative Procedure: CHEST SINGLE VIEW Clinical Indication: Atelectasis Comparison: Chest x-ray February 20, 2016 Findings: Prior median sternotomy and aortic valve replacement. Right PICC remains in place. There is limited depth of inspiration with small bilateral pleural effusions and adjacent atelectasis. There is unchanged mild enlargement of the cardiac silhouette. No pneumothorax is identified. Procedure Note Interface, Radiant Results - Sun Feb 22, 2016 9:35 AM SALES SECRETARY Procedure: CHEST SINGLE VIEW Clinical Indication: Atelectasis Comparison: Chest x-ray February 20, 2016 Findings: Prior median sternotomy and aortic valve replacement. Right PICC remains in place. There is limited depth of inspiration with small bilateral pleural effusions and adjacent atelectasis. There is unchanged mild enlargement of the cardiac silhouette. No pneumothorax is identified. IMPRESSION Persistent mild cardiomegaly with small bilateral pleural effusions and adjacent atelectasis. Approved by Mare Puga M.D. on 02/22/2016 8:57 AM By my electronic signature, I attest that I have personally reviewed the images for this examination and formulated the interpretations and opinions expressed in this report Finalized by Neil Panda M.D. on 02/22/2016 9:32 AM. Dictated by Mare Puga M.D. on 02/22/2016 7:48 AM. ECG-SCAN (02/21/2016 7:14 AM) Narrative Ordered by an unspecified provider. ECG-SCAN (02/20/2016 7:15 AM) Narrative Ordered by an unspecified provider. MAGNESIUM (02/18/2016 8:45 PM)Only the most recent of 12 results within the time period is included. Component Value Range Magnesium 2.5 1.6-2.6 mg/dL Specimen Blood POC BLOOD GAS ARTERIAL (02/18/2016 3:58 PM)Only the most recent of 8 results within the time period is included. Component Value Range PH-ART-POC 7.35 7.35-7.45 VPK0-FCN-GTP 39 35-45 MMHG PO2-ART-POC 84 80-100 MMHG Base Def-ART-POC 5.0 MMOL/L O2 Sat-ART-POC 96.0 95-99 % Sqvxxtlhvhd-UUM-TOQ 21.2 21-28 MMOL/L POC IONIZED CALCIUM (02/18/2016 12:47 PM)Only the most recent of 6 results within the time period is included. Component Value Range Ionized Calcium-POC 1.32 (H) 1.0-1.3 MMOL/L POC SODIUM (02/18/2016 12:47 PM)Only the most recent of 6 results within the time period is included. Component Value Range Sodium-POC 138 137-147 MMOL/L POC POTASSIUM (02/18/2016 12:47 PM)Only the most recent of 6 results within the time period is included. Component Value Range Potassium-POC 4.9 3.5-5.1 MMOL/L POC HEMATOCRIT (02/18/2016 12:47 PM)Only the most recent of 6 results within the time period is included. Component Value Range Hemoglobin POC 8.8 (L) 13.5-16.5 GM/DL Hematocrit POC 26.0 (L) 40-50 % LINE PLCMT 1V CXR (02/18/2016 12:36 PM) Impressions 1.Recent postoperative changes of a median sternotomy and prosthetic aortic valve placement. 2.Mild atelectasis within both lung bases. Finalized by Lamine Grajeda M.D. on 02/18/2016 12:48 PM. Dictated by Lamine Grajeda M.D. on 02/18/2016 12:44 PM. Narrative LINE [facility] 1V CXR Clinical Indication: Male, 75 years old. ET tube and line placement Comparison: X-ray February 17, 2016 Findings: ET tube has been placed with its tip projected above the level of the angelo. NG tube is been placed with the distal tip coursing below the level of the diaphragm though not included in the [id number] of this x-ray.Right IJ [place] Fab[place] catheter is been placed with the tip projected over the main pulmonary artery outflow tract.A right-sided PICC is again noted to be in place with its tip projected over the right atrium.Interval median sternotomy and prosthetic aortic valve replacement.A mediastinal drain is now in place projected over the heart to the left of midline.There is an adjacent curvilinear density projected over the inferior aspect of the heart, to the left of midline that may represent an additional mediastinal thoracostomy tube, chest tube or possibly a pacer lead wire.No pneumothorax is visualized.There are areas of mild atelectasis within both lung bases that have not significantly changed.Bilateral humeral joint arthrosis. Procedure Note Interface, Radiant Results - TueFeb 18, 2016 12:51 PM SALES SECRETARY LINE [facility] 1V CXR Clinical Indication: Male, 75 years old. ET tube and line placement Comparison: X-ray February 17, 2016 Findings: ET tube has been placed with its tip projected above the level of the angelo. NG tube is been placed with the distal tip coursing below the level of the diaphragm though not included in the [id number]-[id number] of this x-ray. Right IJ [place] Fab[place] catheter is been placed with the tip projected over the main pulmonary artery outflow tract. A right-sided PICC is again noted to be in place with its tip projected over the right atrium. Interval median sternotomy and prosthetic aortic valve replacement. A mediastinal drain is now in place projected over the heart to the left of midline. There is an adjacent curvilinear density projected over the inferior aspect of the heart, to the left of midline that may represent an additional mediastinal thoracostomy tube, chest tube or possibly a pacer lead wire. No pneumothorax is visualized. There are areas of mild atelectasis within both lung bases that have not significantly changed. Bilateral humeral joint arthrosis. IMPRESSION 1. Recent postoperative changes of a median sternotomy and prosthetic aortic valve placement. 2. Mild atelectasis within both lung bases. Finalized by Lamine Grajeda M.D. on 02/18/2016 12:48 PM. Dictated by Lamine Grajeda M.D. on 02/18/2016 12:44 PM. SURGICAL PATHOLOGY (02/18/2016 12:34 PM) Component Value Range PATHOLOGY REPORT [facility] [email or web address] Mercy Rosado MD, PhD, Director of Anatomic Pathology Department of Pathology and Laboratory Medicine [address] [place] [phone] Surgical Pathology Office: [phone] SURGICAL PATHOLOGY REPORT NAME: AJ CONNOLLY SURG PATH #: [id number] MR #: [id number] SPECIMEN CLASS: SR BILLING #: [id number] ALT ID #: LOCATION: [facility] DATE OF PROCEDURE: 02/18/2016 AGE: 75 SEX: M DATE RECEIVED: 02/18/2016 : 1940 TIME RECEIVED: 12:34 PHYSICIAN: MARY ADAMS CTS DATE OF REPORT: 02/19/2016 COPY TO: DATE OF PRINTIN02/19/2016 ################################################## ###################### Final Diagnosis: A. 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 +++Electronically Signed Out By+++ cristopher/02/19/2016 Interpreted by: Taylor Valenzuela M.D. 02/19/2016 ################################################## ###################### Material Received: A: aortic valve leaflet History: 75-year-old male with a clinical history of aortic regurgitation. Gross Description: A. Fixative: Formalin Labeled: "Aortic valve leaflet" Dimensions: 2.5 x 2.0 x 0.3 cm aggregate Calcifications: No Cassette A1- Electrophysiology Scientist sections of valve. (jkh) jkh/02/18/2016 ANESTHESIA TRANSEESOPHAGEAL ECHOCARDIOGRAM (02/18/2016 11:53 AM) Julián Montgomery MD 02/18/2016 11:53 AM Anesthesia Procedure: Arterial Line Placement A-LINE INSERTION Date/Time: 02/18/2016 7:10 AM Patient location: Pre/Post Indications: multiple ABGs and hemodynamic monitoring Staff Anesthesiologist: FAUSTINA MONTGOMERY Performed by: JOAQUINA MENDOZA Preprocedure checklist performed: 2 patient identifiers, risks & benefits discussed, patient evaluated, timeout performed, consent obtained, patient being monitored and sterile drape Sterile technique: - Proper hand washing - Cap, mask - Sterile gloves - Skin prep for antisepsis Arterial Line Procedure Patient sedated: yes (see MAR) Sedation type: midazolam; Artery prepped with chlorhexidine; skin prep agent completely dried prior to procedure. Location: radial artery Technique: palpation Needle gauge: 20 G Number of attempts: 1 Procedure Outcome Catheter secured with adhesive dressing applied Events: no complications noted during insertion and skin intact, warm, and dry Observation: pt tolerated well Anesthesia Procedure: Central Venous Catheter Line CENTRAL LINE INSERTION Date/Time: 02/18/2016 7:57 AM Patient location: OR Indications: vascular access, medications requiring CV access and hemodynamic pressure monitoring Staff Anesthesiologist: FAUSITNA MONTGOMERY Performed by: JOAQUINA MENDOZA Preprocedure checklist performed: 2 patient identifiers, risks & benefits discussed, patient evaluated, timeout performed, consent obtained, patient being monitored and CVC bundle followed (proper hand washing, maximal sterile barrier technique with cap, sterile gown, sterile glove, sterile drape, and skin prep for antisepsis) CVC Line Insertion Procedure Patient sedated: yes Sedation given: generalSkin prepped with chlorhexidine; skin prep agent completely dried prior to procedure. Location: internal jugular vein Laterality: right Vein identification: ultrasound guided Number of attempts: 1 Successful placement: yes Patient sedated: yes Sedation given: general Catheter: Catheter type: introducer placed using standard wire through needle technique Catheter size: 9 Fr Procedure Outcome Post procedure: all ports aspirated, dressing applied, line sutured and securement device; Dressing: chlorhexidine impregnated sponge and sterile occlusive dressing Placement verification: x-ray verification pending Events: none Observations: patient tolerated well Anesthesia Procedure: Pulmonary Artery Catheter PULMONARY ARTERY CATHETER INSERTION Date/Time: 02/18/2016 8:00 AM This note is used in conjunction with the CVC Line Insertion note for additional details regarding the insertion of a Pulmonary Artery Catheter: Anesthesiologist: FAUSTINA MONTGOMERY Inserted by: JOAQUINA MENDOZA Catheter Insertion Procedure Catheter type: standard Insertion depth: 50 cm Anesthesia Procedure: Transesophageal Echocardiogram ARNIE Date/Time: 02/18/2016 8:27 AM Associated procedure: AVR Preprocedure checklist performed: 2 patient identifiers, risks & benefits discussed, patient evaluated, timeout performed, consent obtained and patient being monitored Staff Anesthesiologist: FAUSTINA MONTGOMERY Surgeon: MARY ADAMS Performed personally Indication for ARNIE: assessment of ascending aorta, assessment of surgical repair, ventricular function, volume assessment, confirmation of pre-procedure diagnosis and valvular assessment Physician requesting echo: MARY ADAMS CPT codes: 94406 - ARNIE 2D imaging (w or w/o M-mode) including probe placement, image acquisition, interpretation & report, 54544 - PWD and/or CWD f/u or limited study and 28030 - Color flow velocity mapping Patient location: OR Intubated: yes Bite block: yes Heart visualized: yes Insertion: easy Probe type: multiplane Modalities: 2D, color flow mapping, continuous wave Doppler and pulse wave Doppler Echocardiographic and Doppler Measurements Ventricular Findings Right Ventricle RV cavity size: normal RV hypertrophy: no RV thrombus: no RV global function: normal Left Ventricle LV cavity size: normal LV hypertrophy: no LV thrombus: no LV global function: normal LV ejection fraction: 55-60% Ventricular Wall Motion Four Chamber View Basal anterolateral: normal Basal inferoseptal: normal Mid anterolateral: normal Mid inferoseptal: normal Apical lateral: normal Apical septal: normal Two Chamber View Basal anterior: normal Basal inferior: normal Mid anterior: normal Mid inferior: normal Apical anterior: normal Apical inferior: normal Long [place] View Basal anteroseptal: normal Basal inferolateral: normal Mid anteroseptal: normal Mid inferolateral: normal Apical lateral: normal Apical septal: normal [place]: normal Mid Short [place] View Mid anteroseptal: normal Mid anterior: normal Mid anterolateral: normal Mid inferolateral: normal Mid inferior: normal Mid inferoseptal: normal Valves Aortic Valve Annulus: normal Stenosis: none Annulus measurement: 23 cm Aortic PHT: 209 ms Regurgitation severity: severe Leaflet morphology: vegetation and perforated Leaflet motion: flail Aortic valve comments: Vena contracta on regurgitant jet 0.69 cm Mitral Valve Annulus: normal Stenosis: none Regurgitation severity: mild and moderate Leaflet morphology: normal Leaflet motion: normal Tricuspid Valve Annulus: normal Stenosis: none Regurgitation severity: mild Leaflet morphology: normal Leaflet motion: normal Pulmonic Valve Annulus: normal Stenosis: none Regurgitation severity: none Leaflet morphology: normal Aorta Ascending Aorta Size: normal Sinotubular Junction Size: normal Sinus of Valsalva Size: normal Descending Thoracic Aorta Size: normal Aorta comments: Holosystolic flow reversal in abdominal aorta Atria Right Atrium Size: normal Left Atrium Size: normal Left atrial appendage size: normal Septa Intra-atrial septal morphology: normal Intra-ventricular septal morphology: normal Other Findings Pericardium: normal Pleural effusion: bilateral and Large effusions bilaterally Pulmonary arteries: normal Pulmonary venous flow: blunted (decreased) systolic flow Post Procedure Aortic valve replacement Perivalvular leak: no Mean gradient (mmHg): Systolic anterior motion of the mitral valve: no Return to CBT for echo-related diagnosis: no Aorta intact after decannulation: yes Post-procedure LVEF measured: yes; 55-60% Post-procedure RV dysfunction: none Post-procedure comments: S/p AVR with 27 mm bioprosthetic valve - no leak, unable to obtain gradient ANESTHESIA PULMONARY ARTERY CATHETER INSERTION (02/18/2016 11:53 AM) Narrative Faustina Montgomery MD 02/18/2016 11:53 AM Anesthesia Procedure: Arterial Line Placement A-LINE INSERTION Date/Time: 02/18/2016 7:10 AM Patient location: Pre/Post Indications: multiple ABGs and hemodynamic monitoring Staff Anesthesiologist: FAUSTINA MONTGOMERY Performed by: JOAQUINA MENDOZA Preprocedure checklist performed: 2 patient identifiers, risks & benefits discussed, patient evaluated, timeout performed, consent obtained, patient being monitored and sterile drape Sterile technique: - Proper hand washing - Cap, mask - Sterile gloves - Skin prep for antisepsis Arterial Line Procedure Patient sedated: yes (see MAR) Sedation type: midazolam; Artery prepped with chlorhexidine; skin prep agent completely dried prior to procedure. Location: radial artery Technique: palpation Needle gauge: 20 G Number of attempts: 1 Procedure Outcome Catheter secured with adhesive dressing applied Events: no complications noted during insertion and skin intact, warm, and dry Observation: pt tolerated well Anesthesia Procedure: Central Venous Catheter Line CENTRAL LINE INSERTION Date/Time: 02/18/2016 7:57 AM Patient location: OR Indications: vascular access, medications requiring CV access and hemodynamic pressure monitoring Staff Anesthesiologist: FAUSTINA MONTGOMERY Performed by: JOAQUINA MENDOZA Preprocedure checklist performed: 2 patient identifiers, risks & benefits discussed, patient evaluated, timeout performed, consent obtained, patient being monitored and CVC bundle followed (proper hand washing, maximal sterile barrier technique with cap, sterile gown, sterile glove, sterile drape, and skin prep for antisepsis) CVC Line Insertion Procedure Patient sedated: yes Sedation given: generalSkin prepped with chlorhexidine; skin prep agent completely dried prior to procedure. Location: internal jugular vein Laterality: right Vein identification: ultrasound guided Number of attempts: 1 Successful placement: yes Patient sedated: yes Sedation given: general Catheter: Catheter type: introducer placed using standard wire through needle technique Catheter size: 9 Fr Procedure Outcome Post procedure: all ports aspirated, dressing applied, line sutured and securement device; Dressing: chlorhexidine impregnated sponge and sterile occlusive dressing Placement verification: x-ray verification pending Events: none Observations: patient tolerated well Anesthesia Procedure: Pulmonary Artery Catheter PULMONARY ARTERY CATHETER INSERTION Date/Time: 02/18/2016 8:00 AM This note is used in conjunction with the CVC Line Insertion note for additional details regarding the insertion of a Pulmonary Artery Catheter: Anesthesiologist: FAUSTINA MONTGOMERY Inserted by: JOAQUINA MENDOZA PA Catheter Insertion Procedure Catheter type: standard Insertion depth: 50 cm Anesthesia Procedure: Transesophageal Echocardiogram ARNIE Date/Time: 02/18/2016 8:27 AM Associated procedure: AVR Preprocedure checklist performed: 2 patient identifiers, risks & benefits discussed, patient evaluated, timeout performed, consent obtained and patient being monitored Staff Anesthesiologist: FAUSTINA MONTGOMERY Surgeon: MARY ADAMS Performed personally Indication for ARNIE: assessment of ascending aorta, assessment of surgical repair, ventricular function, volume assessment, confirmation of pre-procedure diagnosis and valvular assessment Physician requesting echo: MARY ADAMS CPT codes: 61475 - ARNIE 2D imaging (w or w/o M-mode) including probe placement, image acquisition, interpretation & report, 35931 - PWD and/or CWD f/u or limited study and 93461 - Color flow velocity mapping Patient location: OR Intubated: yes Bite block: yes Heart visualized: yes Insertion: easy Probe type: multiplane Modalities: 2D, color flow mapping, continuous wave Doppler and pulse wave Doppler Echocardiographic and Doppler Measurements Ventricular Findings Right Ventricle RV cavity size: normal RV hypertrophy: no RV thrombus: no RV global function: normal Left Ventricle LV cavity size: normal LV hypertrophy: no LV thrombus: no LV global function: normal LV ejection fraction: 55-60% Ventricular Wall Motion Four Chamber View Basal anterolateral: normal Basal inferoseptal: normal Mid anterolateral: normal Mid inferoseptal: normal Apical lateral: normal Apical septal: normal Two Chamber View Basal anterior: normal Basal inferior: normal Mid anterior: normal Mid inferior: normal Apical anterior: normal Apical inferior: normal Long [place] View Basal anteroseptal: normal Basal inferolateral: normal Mid anteroseptal: normal Mid inferolateral: normal Apical lateral: normal Apical septal: normal [place]: normal Mid Short [place] View Mid anteroseptal: normal Mid anterior: normal Mid anterolateral: normal Mid inferolateral: normal Mid inferior: normal Mid inferoseptal: normal Valves Aortic Valve Annulus: normal Stenosis: none Annulus measurement: 23 cm Aortic PHT: 209 ms Regurgitation severity: severe Leaflet morphology: vegetation and perforated Leaflet motion: flail Aortic valve comments: Vena contracta on regurgitant jet 0.69 cm Mitral Valve Annulus: normal Stenosis: none Regurgitation severity: mild and moderate Leaflet morphology: normal Leaflet motion: normal Tricuspid Valve Annulus: normal Stenosis: none Regurgitation severity: mild Leaflet morphology: normal Leaflet motion: normal Pulmonic Valve Annulus: normal Stenosis: none Regurgitation severity: none Leaflet morphology: normal Aorta Ascending Aorta Size: normal Sinotubular Junction Size: normal Sinus of Valsalva Size: normal Descending Thoracic Aorta Size: normal Aorta comments: Holosystolic flow reversal in abdominal aorta Atria Right Atrium Size: normal Left Atrium Size: normal Left atrial appendage size: normal Septa Intra-atrial septal morphology: normal Intra-ventricular septal morphology: normal Other Findings Pericardium: normal Pleural effusion: bilateral and Large effusions bilaterally Pulmonary arteries: normal Pulmonary venous flow: blunted (decreased) systolic flow Post Procedure Aortic valve replacement Perivalvular leak: no Mean gradient (mmHg): Systolic anterior motion of the mitral valve: no Return to CBT for echo-related diagnosis: no Aorta intact after decannulation: yes Post-procedure LVEF measured: yes; 55-60% Post-procedure RV dysfunction: none Post-procedure comments: S/p AVR with 27 mm bioprosthetic valve - no leak, unable to obtain gradient ANESTHESIA CENTRAL LINE INSERTION (02/18/2016 11:53 AM) Julián Montgomery MD 02/18/2016 11:53 AM Anesthesia Procedure: Arterial Line Placement A-LINE INSERTION Date/Time: 02/18/2016 7:10 AM Patient location: Pre/Post Indications: multiple ABGs and hemodynamic monitoring Staff Anesthesiologist: FAUSTINA MONTGOMERY Performed by: JOAQUINA MENDOZA Preprocedure checklist performed: 2 patient identifiers, risks & benefits discussed, patient evaluated, timeout performed, consent obtained, patient being monitored and sterile drape Sterile technique: - Proper hand washing - Cap, mask - Sterile gloves - Skin prep for antisepsis Arterial Line Procedure Patient sedated: yes (see MAR) Sedation type: midazolam; Artery prepped with chlorhexidine; skin prep agent completely dried prior to procedure. Location: radial artery Technique: palpation Needle gauge: 20 G Number of attempts: 1 Procedure Outcome Catheter secured with adhesive dressing applied Events: no complications noted during insertion and skin intact, warm, and dry Observation: pt tolerated well Anesthesia Procedure: Central Venous Catheter Line CENTRAL LINE INSERTION Date/Time: 02/18/2016 7:57 AM Patient location: OR Indications: vascular access, medications requiring CV access and hemodynamic pressure monitoring Staff Anesthesiologist: FAUSTINA MONTGOMERY Performed by: JOAQUINA MENDOZA Preprocedure checklist performed: 2 patient identifiers, risks & benefits discussed, patient evaluated, timeout performed, consent obtained, patient being monitored and CVC bundle followed (proper hand washing, maximal sterile barrier technique with cap, sterile gown, sterile glove, sterile drape, and skin prep for antisepsis) CVC Line Insertion Procedure Patient sedated: yes Sedation given: generalSkin prepped with chlorhexidine; skin prep agent completely dried prior to procedure. Location: internal jugular vein Laterality: right Vein identification: ultrasound guided Number of attempts: 1 Successful placement: yes Patient sedated: yes Sedation given: general Catheter: Catheter type: introducer placed using standard wire through needle technique Catheter size: 9 Fr Procedure Outcome Post procedure: all ports aspirated, dressing applied, line sutured and securement device; Dressing: chlorhexidine impregnated sponge and sterile occlusive dressing Placement verification: x-ray verification pending Events: none Observations: patient tolerated well Anesthesia Procedure: Pulmonary Artery Catheter PULMONARY ARTERY CATHETER INSERTION Date/Time: 02/18/2016 8:00 AM This note is used in conjunction with the CVC Line Insertion note for additional details regarding the insertion of a Pulmonary Artery Catheter: Anesthesiologist: FAUSTINA MONTGOMERY Inserted by: JOAQUINA MENDOZA Catheter Insertion Procedure Catheter type: standard Insertion depth: 50 cm Anesthesia Procedure: Transesophageal Echocardiogram ARNIE Date/Time: 02/18/2016 8:27 AM Associated procedure: AVR Preprocedure checklist performed: 2 patient identifiers, risks & benefits discussed, patient evaluated, timeout performed, consent obtained and patient being monitored Staff Anesthesiologist: FAUSTINA MONTGOMERY Surgeon: MARY ADAMS Performed personally Indication for ARNIE: assessment of ascending aorta, assessment of surgical repair, ventricular function, volume assessment, confirmation of pre-procedure diagnosis and valvular assessment Physician requesting echo: MARY ADAMS CPT codes: 80994 - ARNIE 2D imaging (w or w/o M-mode) including probe placement, image acquisition, interpretation & report, 28860 - PWD and/or CWD f/u or limited study and 50547 - Color flow velocity mapping Patient location: OR Intubated: yes Bite block: yes Heart visualized: yes Insertion: easy Probe type: multiplane Modalities: 2D, color flow mapping, continuous wave Doppler and pulse wave Doppler Echocardiographic and Doppler Measurements Ventricular Findings Right Ventricle RV cavity size: normal RV hypertrophy: no RV thrombus: no RV global function: normal Left Ventricle LV cavity size: normal LV hypertrophy: no LV thrombus: no LV global function: normal LV ejection fraction: 55-60% Ventricular Wall Motion Four Chamber View Basal anterolateral: normal Basal inferoseptal: normal Mid anterolateral: normal Mid inferoseptal: normal Apical lateral: normal Apical septal: normal Two Chamber View Basal anterior: normal Basal inferior: normal Mid anterior: normal Mid inferior: normal Apical anterior: normal Apical inferior: normal Long [place] View Basal anteroseptal: normal Basal inferolateral: normal Mid anteroseptal: normal Mid inferolateral: normal Apical lateral: normal Apical septal: normal [place]: normal Mid Short [place] View Mid anteroseptal: normal Mid anterior: normal Mid anterolateral: normal Mid inferolateral: normal Mid inferior: normal Mid inferoseptal: normal Valves Aortic Valve Annulus: normal Stenosis: none Annulus measurement: 23 cm Aortic PHT: 209 ms Regurgitation severity: severe Leaflet morphology: vegetation and perforated Leaflet motion: flail Aortic valve comments: Vena contracta on regurgitant jet 0.69 cm Mitral Valve Annulus: normal Stenosis: none Regurgitation severity: mild and moderate Leaflet morphology: normal Leaflet motion: normal Tricuspid Valve Annulus: normal Stenosis: none Regurgitation severity: mild Leaflet morphology: normal Leaflet motion: normal Pulmonic Valve Annulus: normal Stenosis: none Regurgitation severity: none Leaflet morphology: normal Aorta Ascending Aorta Size: normal Sinotubular Junction Size: normal Sinus of Valsalva Size: normal Descending Thoracic Aorta Size: normal Aorta comments: Holosystolic flow reversal in abdominal aorta Atria Right Atrium Size: normal Left Atrium Size: normal Left atrial appendage size: normal Septa Intra-atrial septal morphology: normal Intra-ventricular septal morphology: normal Other Findings Pericardium: normal Pleural effusion: bilateral and Large effusions bilaterally Pulmonary arteries: normal Pulmonary venous flow: blunted (decreased) systolic flow Post Procedure Aortic valve replacement Perivalvular leak: no Mean gradient (mmHg): Systolic anterior motion of the mitral valve: no Return to CBT for echo-related diagnosis: no Aorta intact after decannulation: yes Post-procedure LVEF measured: yes; 55-60% Post-procedure RV dysfunction: none Post-procedure comments: S/p AVR with 27 mm bioprosthetic valve - no leak, unable to obtain gradient ANESTHESIA ARTERIAL LINE INSERTION (02/18/2016 11:53 AM) Narrative Faustina Montgomery MD 02/18/2016 11:53 AM Anesthesia Procedure: Arterial Line Placement A-LINE INSERTION Date/Time: 02/18/2016 7:10 AM Patient location: Pre/Post Indications: multiple ABGs and hemodynamic monitoring Staff Anesthesiologist: FAUSTINA MONTGOMERY Performed by: JOAQUINA MENDOZA Preprocedure checklist performed: 2 patient identifiers, risks & benefits discussed, patient evaluated, timeout performed, consent obtained, patient being monitored and sterile drape Sterile technique: - Proper hand washing - Cap, mask - Sterile gloves - Skin prep for antisepsis Arterial Line Procedure Patient sedated: yes (see MAR) Sedation type: midazolam; Artery prepped with chlorhexidine; skin prep agent completely dried prior to procedure. Location: radial artery Technique: palpation Needle gauge: 20 G Number of attempts: 1 Procedure Outcome Catheter secured with adhesive dressing applied Events: no complications noted during insertion and skin intact, warm, and dry Observation: pt tolerated well Anesthesia Procedure: Central Venous Catheter Line CENTRAL LINE INSERTION Date/Time: 02/18/2016 7:57 AM Patient location: OR Indications: vascular access, medications requiring CV access and hemodynamic pressure monitoring Staff Anesthesiologist: FAUSTINA MONTGOMERY Performed by: JOAQUINA MENDOZA Preprocedure checklist performed: 2 patient identifiers, risks & benefits discussed, patient evaluated, timeout performed, consent obtained, patient being monitored and CVC bundle followed (proper hand washing, maximal sterile barrier technique with cap, sterile gown, sterile glove, sterile drape, and skin prep for antisepsis) CVC Line Insertion Procedure Patient sedated: yes Sedation given: generalSkin prepped with chlorhexidine; skin prep agent completely dried prior to procedure. Location: internal jugular vein Laterality: right Vein identification: ultrasound guided Number of attempts: 1 Successful placement: yes Patient sedated: yes Sedation given: general Catheter: Catheter type: introducer placed using standard wire through needle technique Catheter size: 9 Fr Procedure Outcome Post procedure: all ports aspirated, dressing applied, line sutured and securement device; Dressing: chlorhexidine impregnated sponge and sterile occlusive dressing Placement verification: x-ray verification pending Events: none Observations: patient tolerated well Anesthesia Procedure: Pulmonary Artery Catheter PULMONARY ARTERY CATHETER INSERTION Date/Time: 02/18/2016 8:00 AM This note is used in conjunction with the CVC Line Insertion note for additional details regarding the insertion of a Pulmonary Artery Catheter: Anesthesiologist: FAUSTINA MONTGOMERY Inserted by: JOAQUINA MENDOZA PA Catheter Insertion Procedure Catheter type: standard Insertion depth: 50 cm Anesthesia Procedure: Transesophageal Echocardiogram ARNIE Date/Time: 02/18/2016 8:27 AM Associated procedure: AVR Preprocedure checklist performed: 2 patient identifiers, risks & benefits discussed, patient evaluated, timeout performed, consent obtained and patient being monitored Staff Anesthesiologist: FAUSTINA MONTGOMERY Surgeon: MARY ADAMS Performed personally Indication for ARNIE: assessment of ascending aorta, assessment of surgical repair, ventricular function, volume assessment, confirmation of pre-procedure diagnosis and valvular assessment Physician requesting echo: MARY ADAMS CPT codes: 50896 - ARNIE 2D imaging (w or w/o M-mode) including probe placement, image acquisition, interpretation & report, 12607 - PWD and/or CWD f/u or limited study and 34198 - Color flow velocity mapping Patient location: OR Intubated: yes Bite block: yes Heart visualized: yes Insertion: easy Probe type: multiplane Modalities: 2D, color flow mapping, continuous wave Doppler and pulse wave Doppler Echocardiographic and Doppler Measurements Ventricular Findings Right Ventricle RV cavity size: normal RV hypertrophy: no RV thrombus: no RV global function: normal Left Ventricle LV cavity size: normal LV hypertrophy: no LV thrombus: no LV global function: normal LV ejection fraction: 55-60% Ventricular Wall Motion Four Chamber View Basal anterolateral: normal Basal inferoseptal: normal Mid anterolateral: normal Mid inferoseptal: normal Apical lateral: normal Apical septal: normal Two Chamber View Basal anterior: normal Basal inferior: normal Mid anterior: normal Mid inferior: normal Apical anterior: normal Apical inferior: normal Long [place] View Basal anteroseptal: normal Basal inferolateral: normal Mid anteroseptal: normal Mid inferolateral: normal Apical lateral: normal Apical septal: normal [place]: normal Mid Short [place] View Mid anteroseptal: normal Mid anterior: normal Mid anterolateral: normal Mid inferolateral: normal Mid inferior: normal Mid inferoseptal: normal Valves Aortic Valve Annulus: normal Stenosis: none Annulus measurement: 23 cm Aortic PHT: 209 ms Regurgitation severity: severe Leaflet morphology: vegetation and perforated Leaflet motion: flail Aortic valve comments: Vena contracta on regurgitant jet 0.69 cm Mitral Valve Annulus: normal Stenosis: none Regurgitation severity: mild and moderate Leaflet morphology: normal Leaflet motion: normal Tricuspid Valve Annulus: normal Stenosis: none Regurgitation severity: mild Leaflet morphology: normal Leaflet motion: normal Pulmonic Valve Annulus: normal Stenosis: none Regurgitation severity: none Leaflet morphology: normal Aorta Ascending Aorta Size: normal Sinotubular Junction Size: normal Sinus of Valsalva Size: normal Descending Thoracic Aorta Size: normal Aorta comments: Holosystolic flow reversal in abdominal aorta Atria Right Atrium Size: normal Left Atrium Size: normal Left atrial appendage size: normal Septa Intra-atrial septal morphology: normal Intra-ventricular septal morphology: normal Other Findings Pericardium: normal Pleural effusion: bilateral and Large effusions bilaterally Pulmonary arteries: normal Pulmonary venous flow: blunted (decreased) systolic flow Post Procedure Aortic valve replacement Perivalvular leak: no Mean gradient (mmHg): Systolic anterior motion of the mitral valve: no Return to [facility] for echo-related diagnosis: no Aorta intact after decannulation: yes Post-procedure LVEF measured: yes; 55-60% Post-procedure RV dysfunction: none Post-procedure comments: S/p AVR with 27 mm bioprosthetic valve - no leak, unable to obtain gradient POC ACTIVATED CLOTTING TIME (02/18/2016 11:15 AM)Only the most recent of 6 results within the time period is included. Component Value Range Activated Clotting Time 119 s GRAM STAIN (02/18/2016 9:34 AM) Component Value Range Battery Name GRAM STAIN Specimen Description TISSUE NON CORONARY AORTIC VALVE LEAFLET Special Requests NONE Gram Stain NO NEUTROPHILS SEEN NO ORGANISMS SEEN Report Status FINAL 02/18/2016 Specimen Tissue CULTURE-WOUND/TISSUE/FLUID(AEROBIC ONLY)W/SENSITIVITY (02/18/2016 9:34 AM) Component Value Range Battery Name ROUTINE CULTURE Specimen Description TISSUE NON CORONARY AORTIC VALVE LEAFLET Special Requests NONE Direct Gram Stain NO NEUTROPHILS SEEN NO ORGANISMS SEEN Culture NO GROWTH 5 DAYS Report Status FINAL 02/23/2016 Specimen Tissue - Aortic Valve CULTURE-ANAEROBIC (02/18/2016 9:34 AM) Component Value Range Battery Name ANAEROBE CULTURE Specimen Description TISSUE NON CORONARY AORTIC VALVE LEAFLET Special Requests NONE Culture NO ANAEROBES ISOLATED Report Status FINAL 02/23/2016 Specimen Tissue - Aortic Valve CBC AND DIFF (02/18/2016 3:29 AM)Only the most recent of 7 results within the time period is included. Component Value Range White Blood Cells 7.2 4.5-11.0 K/UL RBC 3.14 (L) 4.4-5.5 M/UL Hemoglobin 7.9 (L) 13.5-16.5 GM/DL Hematocrit 24.5 (L) 40-50 % MCV 78.1 (L) 80-100 FL MCH 25.3 (L) 26-34 PG MCHC 32.4 32.0-36.0 G/DL RDW 18.9 (H) 11-15 % Platelet Count 290 150-400 K/UL MPV 6.8 (L) 7-11 FL Neutrophils 71 41-77 % Lymphocytes 16 (L) 24-44 % Monocytes 9 4-12 % Eosinophils 4 0-5 % Basophils 0 0-2 % Absolute Neutrophil Count 5.10 1.8-7.0 K/UL Absolute Lymph Count 1.20 1.0-4.8 K/UL Absolute Monocyte Count 0.70 0-0.80 K/UL Absolute Eosinophil Count 0.30 0-0.45 K/UL Absolute Basophil Count 0.00 0-0.20 K/UL Specimen Blood BNP (B-TYPE NATRIURETIC PEPTI) (02/17/2016 12:08 PM) Component Value Range B Type Natriuretic 378.0 (H) 0-100 PG/ML Peptide Specimen Blood BLOOD TYPE CONFIRMATION - ORDER ONLY IF REQUESTED BY LAB (02/17/2016 10:09 AM) Component Value Range ABO/RH(D) O NEG Specimen Blood URINALYSIS, MICROSCOPIC (02/17/2016 10:09 AM)Only the most recent of 2 results within the time period is included. Component Value Range WBCs,UA 10-20 0-2 /HPF RBCs,UA 10-20 0-3 /HPF Bacteria,UA FEW (A) NEG-NEG Squamous Epithelial Cells 0-2 0-5 Specimen Urine URINALYSIS DIPSTICK (02/17/2016 10:09 AM)Only the most recent of 2 results within the time period is included. Component Value Range Color,UA YELLOW Turbidity,UA CLEAR CLEAR-CLEAR Specific Pierron-Urine 1.017 1.003-1.035 pH,UA 6.0 5.0-8.0 Protein,UA 1+ (A) NEG-NEG Glucose,UA NEG NEG-NEG Ketones,UA NEG NEG-NEG Bilirubin,UA NEG NEG-NEG Blood,UA 1+ (A) NEG-NEG Urobilinogen,UA NORMAL NORM-NORMAL Nitrite,UA NEG NEG-NEG Leukocytes,UA 1+ (A) NEG-NEG Urine Ascorbic Acid, UA NEG NEG-NEG Specimen Urine CULTURE-URINE W/SENSITIVITY (02/17/2016 10:09 AM)Only the most recent of 2 results within the time period is included. Component Value Range Battery Name URINE CULTURE Specimen Description URINE, CLEAN CATCH Special Requests NONE Culture NO GROWTH Report Status FINAL 02/19/2016 Specimen Urine - Urine,Clean Catch TYPE & CROSSMATCH (02/17/2016 9:49 AM) Component Value Range Units Ordered 4 Crossmatch Expires 02/20/2016 Record Check 2ND TYPE REQUIRED ABO/RH(D) O NEG Antibody Screen NEG Electronic Crossmatch YES Unit Number [id number] Blood Component Type RBC,ADSOL,LEUKO REDUCED,2ND CONT. Unit Division 0 Status OF Unit REL FROM ALLOC Transfusion Status OK TO TRANSFUSE Crossmatch Result COMPATIBLE,ELECTRONIC Unit Number [id number] Blood Component Type RBC,ADSOL,LEUKO REDUCED Unit Division 0 Status OF Unit REL FROM ALLOC Transfusion Status OK TO TRANSFUSE Crossmatch Result COMPATIBLE,ELECTRONIC Unit Number [id number] Blood Component Type RBC,ADSOL,LEUKO REDUCED Unit Division 0 Status OF Unit TRANSFUSED Transfusion Status OK TO TRANSFUSE Crossmatch Result COMPATIBLE,ELECTRONIC Unit Number [id number] Blood Component Type RBC,ADSOL,LEUKO REDUCED Unit Division 0 Status OF Unit REL FROM ALLOC Transfusion Status OK TO TRANSFUSE Crossmatch Result COMPATIBLE,ELECTRONIC Unit Number [id number] Blood Component Type RBC,ADSOL,LEUKO REDUCED Unit Division 0 Status OF Unit REL FROM ALLOC Transfusion Status OK TO TRANSFUSE Crossmatch Result COMPATIBLE,ELECTRONIC Specimen Blood GENTAMICIN PEAK (02/16/2016 10:42 AM)Only the most recent of 3 results within the time period is included. Component Value Range Gentamicin Peak 3.4 (L) 4.0-8.0 MCG/ML Specimen Blood, venous - Blood GENTAMICIN TROUGH (02/16/2016 8:20 AM)Only the most recent of 3 results within the time period is included. Component Value Range Gentamicin Trough 1.2 0.5-2.0 MCG/ML Specimen Blood, venous - Blood CARDIAC CATH REPORT (02/15/2016 1:51 PM) Procedure Note TueFeb 13, 2016 7:23 PM SALES SECRETARY [facility] CARDIAC CATHETERIZATION REPORT Page 2 AJ GUCCI [employer] : 1940 #: [id number] RAFA MR #/Billing ID #: [id number] / [id number] DATE: 02/13/2016 RAILROAD DESIGN CONSULTANT: Robin Suarez MD DICTATING PROVIDER: Raffi Valencia MD REFERRING PHYSICIAN: Chino Fitzgerald MD INTERVENTIONAL FELLOW: Pedro Hoffmann MD. INDICATIONS FOR PROCEDURE: Mr. 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 He is being evaluated for aortic valve surgery for endocarditis and was referred to us for left heart catheterization and coronary angiography preoperatively. CONSENT: After thorough discussion of risks, benefits, and alternatives, the patient verbalized understanding and wished to proceed with the procedure. PROCEDURE IN DETAIL: The patient was brought to the cardiac catheterization area in a fasting, nonsedated state. Versed 1.5 mg and Fentanyl 75 mcg intravenously were used. IV conscious sedation was monitored throughout the procedure by myself, Dr. Suarez, nursing and technical staff. Blood pressure, heart rate, oxygen saturation, and mental status were monitored throughout the procedure. Bilateral groins were draped and prepped in the usual sterile fashion. After infiltrating the right groin with 20 mL of 1% lidocaine, we used a micropuncture kit to access the right femoral artery using modified Seldinger technique. Over a wire, a 6-Malagasy sheath was placed. After that, we used diagnostic catheters to selectively engage the right and left coronary arteries. We used JL4 and JR4 diagnostic catheters. After that, we used a pigtail catheter to perform aortography and to evaluate for severity of aortic regurgitation. At the conclusion of the case, all the catheters and wires were removed, and patient was transported back to the CICU in a hemodynamically stable and pain-free state, where sheath will be pulled as per protocol. FLUORO TIME: 5.2 minutes. AIR KERMA: 1339 mGy. PROCEDURES PERFORMED: 1. Selective coronary angiography. 2. Aortography to grade severity of aortic insufficiency. CONTRAST: Visipaque-320, 115 mL. FINDINGS: Selective coronary angiography: 1. Left main: There is no left main coronary artery. Both left circumflex and left anterior descending artery appeared to have separate ostia. 2. Left anterior descending artery: The left anterior descending artery is a large, type 3 artery and is free of angiographically significant disease throughout its course. It gives rise to a medium-sized diagonal branch, which is also free of any angiographically significant disease throughout its course. 3. Left circumflex artery: The left circumflex artery is a large, dominant vessel and is free of any angiographically significant disease throughout its course. It gives rise to a medium-sized acute marginal branch, which is also free of any angiographically significant disease throughout its course. 4. Right coronary artery: The right coronary artery arises normally from the right coronary cusp. Right coronary artery is free of any angiographically significant disease throughout its course. Aortography: We performed aortography to evaluate for severity of aortic regurgitation in the AP view. Aortography showed severe 4+ aortic regurgitation. IMPRESSION: 1. Angiographically normal coronaries. 2. Severe aortic insufficiency. PLAN: At this point, patient is transported back to the cardiac intensive care unit, where further plan will be dictated by the primary cardiology team. Dr. Suarez was present throughout the procedure and supervised the entire procedure. MD RUDY Miramontes/Елена /[id number] cc: - Chino Fitzgerald MD COMPREHENSIVE METABOLIC PANEL (02/15/2016 3:40 AM)Only the most recent of 4 results within the time period is included. Component Value Range Sodium 132 (L) 137-147 MMOL/L Potassium 4.2 3.5-5.1 MMOL/L Chloride 98 98-110 MMOL/L Glucose 140 (H) 70-100 MG/DL Blood Urea Nitrogen 22 7-25 MG/DL Creatinine 1.26 (H) 0.4-1.24 MG/DL Calcium 9.0 8.5-10.6 MG/DL Total Protein 7.2 6.0-8.0 G/DL Total Bilirubin 0.4 0.3-1.2 MG/DL Albumin 3.3 (L) 3.5-5.0 G/DL Alk Phosphatase 56 25-110 U/L AST (SGOT) 13 7-40 U/L CO2 29 21-30 MMOL/L ALT (SGPT) 8 7-56 U/L Anion Gap 5 3-12 eGFR Non 56 (L)Comment: >60 mL/min The eGFR is not validated for use in drug dosing adjustments. Continue to use estimated creatinine clearance per dosing reference text. Please contact the Clinical Pharmacist for questions. eGFR >60Comment: >60 mL/min The eGFR is not validated for use in drug dosing adjustments. Continue to use estimated creatinine clearance per dosing reference text. Please contact the Clinical Pharmacist for questions. Specimen Blood FERRITIN (02/14/2016 12:45 PM) Component Value Range Ferritin 25 (L) 30-300 NG/ML Specimen Blood IRON + BINDING CAPACITY + %SAT (02/14/2016 12:45 PM) Component Value Range Iron 17 (L) 50-185 MCG/DL Iron Binding-TIBC 381 (H) 270-380 MCG/DL % Saturation 4 (L) 28-42 % Specimen Blood ECG-SCAN (02/14/2016 8:56 AM) Narrative Ordered by an unspecified provider. C REACTIVE PROTEIN (CRP) (02/13/2016 6:10 PM) Component Value Range C-Reactive Protein 5.90 (H) <1.0 MG/DL Specimen Blood SED RATE (02/13/2016 6:10 PM) Component Value Range Sed Rate -ESR 58 (H) 0-20 MM/HR Specimen Blood BEDSIDE PFT (02/13/2016 5:10 PM) Component Value Range FVC-Pre 2.53 L FVC-%Pred-pre 60 % FEV1-Pre 1.88 L FEV1-%Pred-Pre 62 % [id number] 1.44 L/sec [id number]-%Pred-Pre 67 % PEF-Pre 303.1 L/min PV CAROTID ARTERY DUPLEX SCAN (02/13/2016 4:28 PM) Component Value Range Referring Provider France Ferrara RIGHT CCA PROX SYS 1.20 m/s RIGHT CCA PROX ROSA 0.15 m/s RIGHT CCA DIST SYS 0.89 m/s RIGHT CCA DIST ROSA 0.02 m/s RIGHT ICA PROX SYS 0.62 m/s RIGHT ICA PROX ROSA 0.02 m/s RIGHT ICA MID SYS 0.62 m/s RIGHT ICA MID ROSA 0.09 m/s RIGHT ICA DIST SYS 0.74 m/s RIGHT ICA DIST ROSA 0.09 m/s RIGHT ECA SYS 1.19 m/s RIGHT VERTEBRAL SYS 0.53 m/s RIGHT SUBCLAVIAN SYS 1.58 m/s RIGHT ICA/CCA SYS 0.83 m/s LEFT CCA PROX SYS 1.55 m/s LEFT CCA PROX ROSA 0.00 m/s LEFT CCA DIST SYS 1.08 m/s LEFT CCA DIST ROSA 0.00 m/s LEFT ICA PROX SYS 0.63 m/s LEFT ICA PROX ROSA 0.08 m/s LEFT ICA MID SYS 0.79 m/s LEFT ICA MID ROSA 0.12 m/s LEFT ICA DIST SYS 0.93 m/s LEFT ICA DIST ROSA 0.09 m/s LEFT ECA SYS 1.14 m/s LEFT VERTEBRAL SYS 0.48 m/s LEFT SUBCLAVIAN SYS 1.78 m/s LEFT ICA/CCA SYS 0.86 m/s Narrative 1. No significant stenosis in B/L common and internal carotid arteries. 2. Mild plaque in both carotid arteries. 3. Normal antegrade flow in bilateral vertebral arteries. 4. No significant stenosis in bilateral proximal subclavian arteries. No prior studies are available for comparison. PANOREX EXAM (02/13/2016 3:23 PM) Impressions Findings/IMPRESSION: 1.Scattered dental amalgams. Missing are extracted/removed left second maxillary premolar. Missing, extracted, or removed right second maxillary molar. Scattered dental amalgams. 2.No periapical lucencies. No fractures, erosions, or caries identified. Finalized by Se Turner M.D. on 02/13/2016 3:25 PM. Dictated by Se Turner M.D. on 02/13/2016 3:24 PM. Narrative Single view Panorex. Clinical Indication: 75 years Male. Endocarditis. Comparison: None available. Procedure Note Interface, Radiant Results - TueFeb 13, 2016 3:28 PM SALES SECRETARY Single view Panorex. Clinical Indication: 75 years Male. Endocarditis. Comparison: None available. IMPRESSION Findings/IMPRESSION: 1. Scattered dental amalgams. Missing are extracted/removed left second maxillary premolar. Missing, extracted, or removed right second maxillary molar. Scattered dental amalgams. 2. No periapical lucencies. No fractures, erosions, or caries identified. Finalized by Se Turner M.D. on 02/13/2016 3:25 PM. Dictated by Se Turner M.D. on 02/13/2016 3:24 PM. 2-D + DOPPLER ECHOCARDIOGRAM (02/13/2016 9:40 AM) Component Value Range BSA 2.19 m2 ECHO EF 60 % Referring Provider Chino Fitzgerald CV ECHO PV PROJECT ENGINEERING DIRECTOR Vanesa KNUTSON LVIDD 5.7 4.2-5.9 cm LVIDS 5.4 cm IVS 0.9 0.6-1.0 cm PW 0.9 0.6-1.0 cm FS 5.26 28-44 % EF 8.94 % LA size 4.0 3.0-4.0 cm LA volume 44.0 18-58 mL Left Atrium Index 20.09 10-32 Right Ventricular Basal 2.9 cm (2.4-4.2) Diameter Right Atrial Area 17.6 cm2 (<=18) Right Ventricular Mid 3.0 cm (2.0-3.5) Diameter Right Atrial Major 5.8 cm (<=5.3) Dimension Right Ventricular Long 7.3 cm (5.6-8.6) Diameter Right Atrial Minor 3.7 cm (<=4.4) Dimension Ao root annulus 2.7 1.4-2.6 cm Sinus 4.0 2.1-3.5 cm STJ 3.6 1.7-3.4 cm Proximal aorta 3.7 2.1-3.4 cm AV peak velocity 2.3 m/s TV rest pulmonary artery 81 mmHg pressure Right Heart Systolic TDI 0.200 m/s S' Right Heart Systolic MPI 0.61 Right Heart Systolic ET 274.0 ms Right Heart Systolic TCO 440.0 ms Right Heart Systolic 2.8 cm Mmode TAPSE Narrative 1. Normal LV size and systolic function. 2. Normal RV size and systolic function. 3. Unable to assess LV diastolic function 4. AV is not adequately seen. However leaflets appear thickened and there is a hypermobile structure that may be a vegetation (best seen in subcostal views). Severe AI. 5. Other valves without significant functional abnormality. 6. Severely elevated pulmonary artery systolic pressure. 7. No pericardial effusion is seen. No prior studies are available for comparison. CULTURE-BLOOD W/SENSITIVITY (02/12/2016 5:36 PM)Only the most recent of 2 results within the time period is included. Component Value Range Battery Name BLOOD CULTURE Specimen Description BLOOD LEFT WRIST Special Requests NONE Culture NO GROWTH 5 DAYS Report Status FINAL 02/18/2016 Specimen Blood LIPID PROFILE (02/12/2016 4:39 PM) Component Value Range Cholesterol 187 <200 MG/DL Triglycerides 59 <150 MG/DL HDL 32 (L) >40 MG/DL LDL 145 (H) <100 MG/DL VLDL 12 MG/DL Non HDL Cholesterol 155Comment: MG/DL Calculated non-HDL Cholesterol (non-HDL-C) indirectly measures LDL-C, Lp(a), IDL-C, and VLDL-C. It is a surrogate marker for Apoprotein B. Non-HDL-C is a more accurate measure of atherogenic particle concentration than LDL-C in patients with hypertriglyceridemia (>200 mg/dL). This calculation is now recommended for evaluation and treatment of coronary heart disease according to the National Cholesterol Education Program Adult Treatment Protocol-III. See Horton et al. Am J. Cardiol. 2008, 101:7808-6905. The "goal" should be less than 130 mg/dL, but will vary according to risk factors. Specimen Blood HEMOGLOBIN A1C (02/12/2016 4:39 PM) Component Value Range Hemoglobin A1C 5.7Comment: 4.0-6.0 % The ADA recommends that most patients with type 1 and type 2 diabetes maintain an A1c level <7%. Specimen Blood PHOSPHORUS (02/12/2016 4:39 PM) Component Value Range Phosphorus 3.8 2.0-4.0 MG/DL Specimen Blood GENERAL RAD CHEST EXTERNAL IMAGING (02/12/2016 12:30 AM)Only the most recent of 2 results within the time period is included. Narrative This order has been auto finalized and does not contain a result. CT CHEST EXTERNAL IMAGING (02/12/2016 12:15 AM) Narrative This order has been auto finalized and does not contain a result. US LOWER EXT EXTERNAL IMAGING (02/12/2016) Narrative This order has been auto finalized and does not contain a result.
--- OUTSIDE RECORDS SUMMARY | 2016-03-04 17:31 | XMS REPORT | Continuity of Care Document ---
Author Author [facility] Organization [facility] Address Unknown Phone Unavailable Care Team Providers Care Egg Caser Name Role Phone France Ferrara PCP [phone] Source Comments Some departments are not documenting in the electronic medical record. If you do not see the information that you expected, contact Release of Information in the Health Information Management department at [phone] for further assistance in locating additional records.[facility] Active Allergies and Adverse Reactions No Known [...] Cardiology Cath, Physician Left Heart Catheterization 02/12/2016 [facility] Chino Fitzgerald MD Infective endocarditis of [...] Taken Blood Pressure 147/78 02/24/2016 11:10 AM STRAP CUTTING MACHINE OPERATOR Pulse 84 02/24/2016 11:10 AM STRAP CUTTING MACHINE OPERATOR Temperature 36.5 C (97.7 F) 02/24/2016 11:10 AM STRAP CUTTING MACHINE OPERATOR Respiratory Rate - - Height 1.778 m (5' 10") 02/19/2016 6:00 AM STRAP CUTTING MACHINE OPERATOR Weight 100.699 kg (222 lb) 02/24/2016 6:05 AM STRAP CUTTING MACHINE OPERATOR Body Mass Index 31.85 02/24/2016 6:05 AM STRAP CUTTING MACHINE OPERATOR Oxygen Saturation 98% 02/24/2016 11:10 AM STRAP CUTTING MACHINE OPERATOR Plan of Care Date Type Specialty Providers Description 03/10/2016 Appointment Cardiothoracic Surgery Mary Adams MD [address] [facility] [address] [place] [address] [phone] (Fax) Health Maintenance Due Date Last Done Comments Physical (Comprehensive) 1947 Exam Pertussis Vaccine 1950 Tetanus Vaccine 1956 Shingles Vaccine 1999 Prevnar/Pneumovax (#1) 2004 Influenza Vaccine 10/23/2015 Procedures from Last 3 Months Procedure Name Priority Date/Time Associated Diagnosis Comments TELEMETRY STRIPS-SCAN 02/27/2016 Results for this 8:03 AM STRAP CUTTING MACHINE OPERATOR procedure are in the results section. TELEMETRY STRIPS-SCAN 02/27/2016 Results for this 8:03 AM STRAP CUTTING MACHINE OPERATOR procedure are in the results section. TELEMETRY STRIPS-SCAN 02/27/2016 Results for this 8:03 AM STRAP CUTTING MACHINE OPERATOR procedure are in the results section. TELEMETRY STRIPS-SCAN 02/27/2016 Results for this 8:03 AM STRAP CUTTING MACHINE OPERATOR procedure are in the results section. TELEMETRY STRIPS-SCAN 02/27/2016 Results for this 8:03 AM STRAP CUTTING MACHINE OPERATOR procedure are in the results section. TELEMETRY STRIPS-SCAN 02/27/2016 Results for this 8:01 AM STRAP CUTTING MACHINE OPERATOR procedure are in the results section. TELEMETRY STRIPS-SCAN 02/27/2016 Results for this 8:01 AM STRAP CUTTING MACHINE OPERATOR procedure are in the results section. TELEMETRY STRIPS-SCAN 02/27/2016 Results for this 8:01 AM STRAP CUTTING MACHINE OPERATOR procedure are in the results section. TELEMETRY STRIPS-SCAN 02/27/2016 Results for this 8:01 AM STRAP CUTTING MACHINE OPERATOR procedure are in the results section. TELEMETRY STRIPS-SCAN 02/27/2016 Results for this 8:01 AM STRAP CUTTING MACHINE OPERATOR procedure are in the results section. PULMONARY FUNCTION 02/26/2016 Results for this STUDY-SCAN 11:30 AM STRAP CUTTING MACHINE OPERATOR procedure are in the results section. PROCEDURE RECORD-SCAN 02/26/2016 Results for this 11:30 AM STRAP CUTTING MACHINE OPERATOR procedure are in the results section. PROCEDURE RECORD-SCAN 02/26/2016 Results for this 11:29 AM STRAP CUTTING MACHINE OPERATOR procedure are in the results section. ECG UNCONFIRMED-SCAN 02/26/2016 Results for this 11:26 AM STRAP CUTTING MACHINE OPERATOR procedure are in the results section. ECG UNCONFIRMED-SCAN 02/26/2016 Results for this 11:26 AM STRAP CUTTING MACHINE OPERATOR procedure are in the results section. ECG UNCONFIRMED-SCAN 02/26/2016 Results for this 11:26 AM STRAP CUTTING MACHINE OPERATOR procedure are in the results section. ECG-SCAN 02/26/2016 Results for this 11:25 AM STRAP CUTTING MACHINE OPERATOR procedure are in the results section. ECG-SCAN 02/26/2016 Results for this 9:26 AM STRAP CUTTING MACHINE OPERATOR procedure are in the results section. ECG-SCAN 02/21/2016 Results for this 7:14 AM STRAP CUTTING MACHINE OPERATOR procedure are in the results section. ECG-SCAN 02/20/2016 Results for this 7:15 AM STRAP CUTTING MACHINE OPERATOR procedure are in the results section. ANESTHESIA Routine 02/18/2016 Results for this TRANSEESOPHAGEAL 11:53 AM STRAP CUTTING MACHINE OPERATOR procedure are in the ECHOCARDIOGRAM results section. ANESTHESIA PULMONARY Routine 02/18/2016 Results for this ARTERY CATHETER INSERTION 11:53 AM STRAP CUTTING MACHINE OPERATOR procedure are in the results section. ANESTHESIA CENTRAL LINE Routine 02/18/2016 Results for this INSERTION 11:53 AM STRAP CUTTING MACHINE OPERATOR procedure are in the results section. ANESTHESIA ARTERIAL LINE Routine 02/18/2016 Results for this INSERTION 11:53 AM STRAP CUTTING MACHINE OPERATOR procedure are in the results section. ECG-SCAN 02/14/2016 Results for this 8:56 AM STRAP CUTTING MACHINE OPERATOR procedure are in the results section. Results [...] - Tue Feb 24, 2016 1:06 PM STRAP CUTTING MACHINE OPERATOR CHEST 2 VIEWS Clinical Indication: eval effusions. [...] - Sun Feb 22, 2016 9:35 AM STRAP CUTTING MACHINE OPERATOR Procedure: CHEST SINGLE VIEW Clinical Indication: Atelectasis [...] included. Component Value Range PH-ART-POC 7.35 7.35-7.45 IOD8-CNZ-OIH 39 35-45 MMHG PO2-ART-POC 84 80-100 MMHG Base Def-ART-POC 5.0 MMOL/L O2 Sat-ART-POC 96.0 95-99 % Dedhpgfqham-GNY-KPN 21.2 21-28 MMOL/L POC IONIZED CALCIUM (02/18/2016 [...] M.D. on 02/18/2016 12:44 PM. Narrative [facility] 1V CXR Clinical Indication: Male, 75 years old. ET tube and line placement Comparison: X-ray February 17, 2016 Findings: ET tube has been placed with its tip projected above the level of the angelo. NG tube is been placed with the distal tip coursing below the level of the diaphragm though not included in the cyapn-hp-tnsr of this x-ray.Right IJ Hernshaw Fabiana catheter is been placed with the [...] Results - TueFeb 18, 2016 12:51 PM STRAP CUTTING MACHINE OPERATOR [facility] 1V CXR Clinical Indication: Male, 75 years old. ET tube and line placement Comparison: X-ray February 17, 2016 Findings: ET tube has been placed with its tip projected above the level of the angelo. NG tube is been placed with the distal tip coursing below the level of the diaphragm though not included in the gwvjz-ef-xchq of this x-ray. Right IJ Hernshaw Fabiana catheter is been placed with the [...] PM) Component Value Range PATHOLOGY REPORT [facility] [email or web address] Mercy Rosado MD, PhD, Director of Anatomic Pathology Department of Pathology and Laboratory Medicine [address] [place] [id number] Surgical Pathology Office: [phone] SURGICAL PATHOLOGY REPORT NAME: AJ CONNOLLY SURG PATH #: [id number] MR #: [id number] SPECIMEN CLASS: SR BILLING #: [id number] ALT ID #: LOCATION: [facility] DATE OF PROCEDURE: 02/18/2016 AGE: 75 SEX: [...] 0.3 cm aggregate Calcifications: No Cassette A1- Software Database Architect sections of valve. (jkh) jkh/02/18/2016 ANESTHESIA TRANSEESOPHAGEAL [...] Staff Anesthesiologist: FAUSTINA MONTGOMERY Performed by: JOAQUINA MENDOAZ Preprocedure checklist performed: 2 patient identifiers, risks [...] Physician requesting echo: MARY ADAMS CPT codes: 86512 - ARNIE 2D imaging (w or w/o M-mode) including probe placement, image acquisition, interpretation & report, 50782 - PWD and/or CWD f/u or limited study and 26224 - Color flow velocity mapping Patient location: [...] Apical anterior: normal Apical inferior: normal Long Picher View Basal anteroseptal: normal Basal inferolateral: normal Mid anteroseptal: normal Mid inferolateral: normal Apical lateral: normal Apical septal: normal [place]: normal Mid Short Picher View Mid anteroseptal: normal Mid anterior: normal [...] Physician requesting echo: MARY ADAMS CPT codes: 53538 - ARNIE 2D imaging (w or w/o M-mode) including probe placement, image acquisition, interpretation & report, 75536 - PWD and/or CWD f/u or limited study and 96574 - Color flow velocity mapping Patient location: [...] Apical anterior: normal Apical inferior: normal Long Picher View Basal anteroseptal: normal Basal inferolateral: normal Mid anteroseptal: normal Mid inferolateral: normal Apical lateral: normal Apical septal: normal [place]: normal Mid Short Picher View Mid anteroseptal: normal Mid anterior: normal [...] Physician requesting echo: MARY ADAMS CPT codes: 73865 - ARNIE 2D imaging (w or w/o M-mode) including probe placement, image acquisition, interpretation & report, 06721 - PWD and/or CWD f/u or limited study and 77826 - Color flow velocity mapping Patient location: [...] Apical anterior: normal Apical inferior: normal Long Picher View Basal anteroseptal: normal Basal inferolateral: normal Mid anteroseptal: normal Mid inferolateral: normal Apical lateral: normal Apical septal: normal [place]: normal Mid Short Picher View Mid anteroseptal: normal Mid anterior: normal [...] Physician requesting echo: MARY ADAMS CPT codes: 07262 - ARNIE 2D imaging (w or w/o M-mode) including probe placement, image acquisition, interpretation & report, 87615 - PWD and/or CWD f/u or limited study and 99788 - Color flow velocity mapping Patient location: [...] Apical anterior: normal Apical inferior: normal Long Picher View Basal anteroseptal: normal Basal inferolateral: normal Mid anteroseptal: normal Mid inferolateral: normal Apical lateral: normal Apical septal: normal [place]: normal Mid Short Picher View Mid anteroseptal: normal Mid anterior: normal [...] of the mitral valve: no Return to [facility] for echo-related diagnosis: no Aorta intact after [...] Range Color,UA YELLOW Turbidity,UA CLEAR CLEAR-CLEAR Specific [place]-Urine 1.017 1.003-1.035 pH,UA 6.0 5.0-8.0 Protein,UA 1+ [...] Screen NEG Electronic Crossmatch YES Unit Number [id number] Blood Component Type RBC,ADSOL,LEUKO REDUCED,2ND CONT. Unit Division 0 Status OF Unit REL FROM ALLOC Transfusion Status OK TO TRANSFUSE Crossmatch Result COMPATIBLE,ELECTRONIC Unit Number [id number] Blood Component Type RBC,ADSOL,LEUKO REDUCED Unit Division 0 Status OF Unit REL FROM ALLOC Transfusion Status OK TO TRANSFUSE Crossmatch Result COMPATIBLE,ELECTRONIC Unit Number [id number] Blood Component Type RBC,ADSOL,LEUKO REDUCED Unit Division 0 Status OF Unit TRANSFUSED Transfusion Status OK TO TRANSFUSE Crossmatch Result COMPATIBLE,ELECTRONIC Unit Number [id number] Blood Component Type RBC,ADSOL,LEUKO REDUCED Unit Division 0 Status OF Unit REL FROM ALLOC Transfusion Status OK TO TRANSFUSE Crossmatch Result COMPATIBLE,ELECTRONIC Unit Number [id number] Blood Component Type RBC,ADSOL,LEUKO REDUCED Unit Division [...] Procedure Note TueFeb 13, 2016 7:23 PM STRAP CUTTING MACHINE OPERATOR [facility] CARDIAC CATHETERIZATION REPORT Page 2 AJ GUCCI Power : 1940 #: [id number] RAFA MR #/Billing ID #: [id number] / [id number] DATE: 02/13/2016 CNA: Robin Suarez MD DICTATING PROVIDER: Raffi Valencia [...] modified Seldinger technique. Over a wire, a 6-Portuguese sheath was placed. After that, we used [...] supervised the entire procedure. MD RUDY Miramontes/Елена /[id number] cc: - Chino Fitzgerald MD COMPREHENSIVE METABOLIC [...] % FEV1-Pre 1.88 L FEV1-%Pred-Pre 62 % PIM0685-Fwn 1.44 L/sec BXH1477-%Pred-Pre 67 % PEF-Pre 303.1 L/min PV CAROTID [...] Results - TueFeb 13, 2016 3:28 PM STRAP CUTTING MACHINE OPERATOR Single view [employer]. Clinical Indication: 75 years [...] Referring Provider Chino Fitzgerald CV ECHO PV EXTRUDING PRESS OPERATOR Vanesa KNUTSON LVIDD 5.7 4.2-5.9 cm LVIDS [...] Horton et al. Am J. Cardiol. 2008, 101:2844-8524. The "goal" should be less than 130 [...]
[2016-03-04 17:46] VITALS: BP 0/0
== END | disposition home or self-care (01) ==
LOC: SDC 17:21
PROVIDERS: ATTEND Internal Medicine
DX: Z45.2 Encounter for adjustment and management of vascular access device (principal)

== ENCOUNTER 2016-03-17 12:14 | Outpatient (RCR) | payer MEDICARE ==
--- OUTSIDE RECORDS SUMMARY | 2016-03-17 12:21 | XMS REPORT | Continuity of Care Document ---
Author Author [facility] Organization [facility] Address Unknown Phone Unavailable Care Team Providers Care Shorts Sifter Name Role Phone [place] Ferrara PCP [phone] Source Comments Some departments are not documenting in the electronic medical record. If you do not see the information that you expected, contact Release of Information in the Health Information Management department at [phone] for further assistance in locating additional records.[facility] Active Allergies and Adverse Reactions [...] Active tablet daily. Take with food. 17 atorvastatin (LIPITOR) 40 Take 1 Tab by [...] Active (LOPRESSOR) 50 mg tablet daily. 17 levoFLOXacin (LEVAQUIN) Take 500 mg by mouth 02/28/19 03/17/19 Active 500 mg tablet daily. 17 17 lisinopril (PRINIVIL; Take 20 mg by mouth Active ZESTRIL) 20 mg tablet daily. traZODone (DESYREL) 100 Take 100 mg by mouth at Active mg tablet bedtime daily. ranitidine hcl(+) Take 150 mg by mouth Active (ZANTAC) 150 mg tablet daily as needed for Heartburn. guaiFENesin (ROBITUSSIN) Take 10 mL by mouth every Active 100 mg/5 mL oral solution 4 hours as needed. Ampicillin Sodium 2 gram Administer 2 g through 02/23/19 Discontin solr vein every 6 hours. 17 ued GENTAMICIN/SODIUM Administer 80 mg through 02/23/19 Discontin CHLORIDE (GENTAMICIN IN vein twice daily. 17 ued 0.9 % SODIUM CHL IV) lisinopril (PRINIVIL; Take 20 mg by mouth 02/23/19 Discontin ZESTRIL) 20 mg tablet daily. 17 ued oxyCODONE/acetaminophen Take 1-2 Tabs by mouth 30 Tab 0 02/23/19 Discontin (PERCOCET) 5/325 mg every 4 hours as needed 17 17 ued tablet for Pain Earliest Fill Date: 02/24/16 Max 12 tabs/day cefTRIAXone (ROCEPHIN) 2 Administer 20 mL through 360 mL 0 02/23/19 03/04/19 g solr vein every 12 hours for 9 17 17 days. ampicillin (OMNIPEN) 2 Administer 2 g through 02/23/19 03/04/19 g/10 mL 2 g in sodium vein every 4 hours for 9 17 17 chloride 0.9% (NS) 0.9 % days. 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 Pulmonary edema 02/12/2016 Most Recent Encounters Date Type Specialty Providers Description 03/10/2016 [facility] Radiology Mary Adams MD Arrived Encounter 03/10/2016 [facility] Cardiology Mary Adams MD Arrived Encounter 03/10/2016 Office Visit Cardiothoracic Surgery Mary Adams MD S /P AVR (Primary Dx); Nonrheumatic aortic valve insufficiency; Paroxysmal atrial fibrillation (HCC); Endocarditis, unspecified chronicity, unspecified endocarditis type 03/05/2016 Telephone Infectious Diseases Mirela Randall MD Outpatient Antibiotic Therapy ([facility]) 03/03/2016 Telephone Cardiothoracic Surgery José Manuel Gutiérrez RN Follow- up Phone Call 03/02/2016 Outpt. Infectious Diseases Mirela Randall MD Antibiotic Therapy 02/25/2016 Telephone Infectious Diseases Mirela Randall MD Outpatient Antibiotic Therapy ([facility]) 02/18/2016 Surgery Mary Adams MD REPLACEMENT AORTIC VALVE 02/17/2016 Anesthesia Diego Sharma MD Event 02/13/2016 Surgery Cardiology Cath, Physician Left Heart Catheterization 02/12/2016 [facility] Chino Fitzgerald MD Infective endocarditis of - [...] Vital Sign Reading Time Taken Blood Pressure 134/72 03/10/2016 11:07 AM SWIMMING PROFESSOR Pulse 67 03/10/2016 11:07 AM SWIMMING PROFESSOR Temperature 36.5 C (97.7 F) 02/24/2016 11:10 AM SWIMMING PROFESSOR Respiratory Rate - - Height 1.778 m (5' 10") 03/10/2016 11:07 AM SWIMMING PROFESSOR Weight 98.294 kg (216 lb 11.2 03/10/2016 11:07 AM SWIMMING PROFESSOR oz) Body Mass Index 31.09 03/10/2016 11:07 AM SWIMMING PROFESSOR Oxygen Saturation 94% 03/10/2016 11:07 AM SWIMMING PROFESSOR Plan of Care Health Maintenance Due Date Last Done Comments Physical (Comprehensive) 1947 Exam Pertussis Vaccine 1950 Tetanus Vaccine 1956 Shingles Vaccine 1999 Prevnar/Pneumovax (#1) 2004 Influenza Vaccine 10/23/2015 Procedures from Last 3 Months Procedure Name Priority Date/Time Associated Diagnosis Comments TELEMETRY STRIPS-SCAN 02/27/2016 Results for this 8:03 AM SWIMMING PROFESSOR procedure are in the results section. TELEMETRY STRIPS-SCAN 02/27/2016 Results for this 8:03 AM SWIMMING PROFESSOR procedure are in the results section. TELEMETRY STRIPS-SCAN 02/27/2016 Results for this 8:03 AM SWIMMING PROFESSOR procedure are in the results section. TELEMETRY STRIPS-SCAN 02/27/2016 Results for this 8:03 AM SWIMMING PROFESSOR procedure are in the results section. TELEMETRY STRIPS-SCAN 02/27/2016 Results for this 8:03 AM SWIMMING PROFESSOR procedure are in the results section. TELEMETRY STRIPS-SCAN 02/27/2016 Results for this 8:01 AM SWIMMING PROFESSOR procedure are in the results section. TELEMETRY STRIPS-SCAN 02/27/2016 Results for this 8:01 AM SWIMMING PROFESSOR procedure are in the results section. TELEMETRY STRIPS-SCAN 02/27/2016 Results for this 8:01 AM SWIMMING PROFESSOR procedure are in the results section. TELEMETRY STRIPS-SCAN 02/27/2016 Results for this 8:01 AM SWIMMING PROFESSOR procedure are in the results section. TELEMETRY STRIPS-SCAN 02/27/2016 Results for this 8:01 AM SWIMMING PROFESSOR procedure are in the results section. PULMONARY FUNCTION 02/26/2016 Results for this STUDY-SCAN 11:30 AM SWIMMING PROFESSOR procedure are in the results section. PROCEDURE RECORD-SCAN 02/26/2016 Results for this 11:30 AM SWIMMING PROFESSOR procedure are in the results section. PROCEDURE RECORD-SCAN 02/26/2016 Results for this 11:29 AM SWIMMING PROFESSOR procedure are in the results section. ECG UNCONFIRMED-SCAN 02/26/2016 Results for this 11:26 AM SWIMMING PROFESSOR procedure are in the results section. ECG UNCONFIRMED-SCAN 02/26/2016 Results for this 11:26 AM SWIMMING PROFESSOR procedure are in the results section. ECG UNCONFIRMED-SCAN 02/26/2016 Results for this 11:26 AM SWIMMING PROFESSOR procedure are in the results section. ECG-SCAN 02/26/2016 Results for this 11:25 AM SWIMMING PROFESSOR procedure are in the results section. ECG-SCAN 02/26/2016 Results for this 9:26 AM SWIMMING PROFESSOR procedure are in the results section. ECG-SCAN 02/21/2016 Results for this 7:14 AM SWIMMING PROFESSOR procedure are in the results section. ECG-SCAN 02/20/2016 Results for this 7:15 AM SWIMMING PROFESSOR procedure are in the results section. ANESTHESIA Routine 02/18/2016 Results for this TRANSEESOPHAGEAL 11:53 AM SWIMMING PROFESSOR procedure are in the ECHOCARDIOGRAM results section. ANESTHESIA PULMONARY Routine 02/18/2016 Results for this ARTERY CATHETER INSERTION 11:53 AM SWIMMING PROFESSOR procedure are in the results section. ANESTHESIA CENTRAL LINE Routine 02/18/2016 Results for this INSERTION 11:53 AM SWIMMING PROFESSOR procedure are in the results section. ANESTHESIA ARTERIAL LINE Routine 02/18/2016 Results for this INSERTION 11:53 AM SWIMMING PROFESSOR procedure are in the results section. ECG-SCAN 02/14/2016 Results for this 8:56 AM SWIMMING PROFESSOR procedure are in the results section. Results from Last 3 Months CHEST 2 VIEWS (03/10/2016 1:10 PM)Only the most recent of 2 results within the time period is included. Impressions Bilateral small pleural effusions with bibasilar atelectasis. Approved by Gonzales Ryan MD on 03/10/2016 2:46 PM By my electronic signature, I attest that I have personally reviewed the images for this examination and formulated the interpretations and opinions expressed in this report Finalized by Fiorella Celis M.D. on 03/10/2016 2:54 PM. Dictated by Gonzales Ryan MD on 03/10/2016 1:56 PM. Narrative CHEST 2 VIEWS CLINICAL HISTORY: Male, 75 years old. Aortic valve replacement. COMPARISON: Chest radiograph from 02/23/2016. FINDINGS: Prior median sternotomy and aortic valve replacement. Interval removal of right PICC. There are bilateral small pleural effusions with adjacent atelectasis. The heart is normal in size. The pulmonary vasculature is unremarkable. No lobar consolidation or pneumothorax identified. Multiple mild thoracic compression deformities noted. Procedure Note Interface, Radiant Results - TueMar 10, 2016 2:57 PM SWIMMING PROFESSOR CHEST 2 VIEWS CLINICAL HISTORY: Male, 75 years old. Aortic valve replacement. COMPARISON: Chest radiograph from 02/23/2016. FINDINGS: Prior median sternotomy and aortic valve replacement. Interval removal of right PICC. There are bilateral small pleural effusions with adjacent atelectasis. The heart is normal in size. The pulmonary vasculature is unremarkable. No lobar consolidation or pneumothorax identified. Multiple mild thoracic compression deformities noted. IMPRESSION Bilateral small pleural effusions with bibasilar atelectasis. Approved by Gonzales Ryna MD on 03/10/2016 2:46 PM By my electronic signature, I attest that I have personally reviewed the images for this examination and formulated the interpretations and opinions expressed in this report Finalized by Fiorella Celis M.D. on 03/10/2016 2:54 PM. Dictated by Gonzales Ryan MD on 03/10/2016 1:56 PM. COMPREHENSIVE METABOLIC PANEL (03/10/2016 12:56 PM)Only the most recent of 5 results within the time period is included. Component Value Range Sodium 134 (L) 137-147 MMOL/L Potassium 4.0 3.5-5.1 MMOL/L Chloride 100 98-110 MMOL/L Glucose 91 70-100 MG/DL Blood Urea Nitrogen 13 7-25 MG/DL Creatinine 0.94 0.4-1.24 MG/DL Calcium 9.1 8.5-10.6 MG/DL Total Protein 6.9 6.0-8.0 G/DL Total Bilirubin 0.2 (L) 0.3-1.2 MG/DL Albumin 3.3 (L) 3.5-5.0 G/DL Alk Phosphatase 103 25-110 U/L AST (SGOT) 24 7-40 U/L CO2 26 21-30 MMOL/L ALT (SGPT) 19 7-56 U/L Anion Gap 8 3-12 eGFR Non >60Comment: >60 mL/min The eGFR [...] the Clinical Pharmacist for questions. Specimen Blood CBC AND DIFF (03/10/2016 12:56 PM)Only the most recent of 8 results within the time period is included. Component Value Range White Blood Cells 7.3 4.5-11.0 K/UL RBC 3.39 (L) 4.4-5.5 M/UL Hemoglobin 8.5 (L) 13.5-16.5 GM/DL Hematocrit 26.1 (L) 40-50 % MCV 77.2 (L) 80-100 FL MCH 25.2 (L) 26-34 PG MCHC 32.6 32.0-36.0 G/DL RDW 18.5 (H) 11-15 % Platelet Count 369 150-400 K/UL MPV 6.5 (L) 7-11 FL Neutrophils 73 41-77 % Lymphocytes 15 (L) 24-44 % Monocytes 9 4-12 % Eosinophils 3 0-5 % Basophils 0 0-2 % Absolute Neutrophil Count 5.40 1.8-7.0 K/UL Absolute Lymph Count 1.10 1.0-4.8 K/UL Absolute Monocyte Count 0.60 0-0.80 K/UL Absolute Eosinophil Count 0.20 0-0.45 K/UL Absolute Basophil Count 0.00 0-0.20 K/UL Specimen Blood BUN (03/01/2016) Component Value Range Blood Urea [...] the Clinical Pharmacist for questions. Specimen Blood PTT (APTT) (02/23/2016 5:30 AM)Only the most [...] - Sun Feb 22, 2016 9:35 AM SWIMMING PROFESSOR Procedure: CHEST SINGLE VIEW Clinical Indication: Atelectasis [...] included. Component Value Range PH-ART-POC 7.35 7.35-7.45 PYU2-CTY-WWK 39 35-45 MMHG PO2-ART-POC 84 80-100 MMHG Base Def-ART-POC 5.0 MMOL/L O2 Sat-ART-POC 96.0 95-99 % Yzjocbwralt-PIQ-FMR 21.2 21-28 MMOL/L POC IONIZED CALCIUM (02/18/2016 [...] Hematocrit POC 26.0 (L) 40-50 % [facility] 1V CXR (02/18/2016 12:36 PM) Impressions 1.Recent postoperative changes of a median sternotomy and prosthetic aortic valve placement. 2.Mild atelectasis within both lung bases. Finalized by Lamine Grajeda M.D. on 02/18/2016 12:48 PM. Dictated by Lamine Grajeda M.D. on 02/18/2016 12:44 PM. Narrative [facility] 1 CXR Clinical Indication: Male, 75 years old. ET tube and line placement Comparison: X-ray February 17, 2016 Findings: ET tube has been placed with its tip projected above the level of the angelo. NG tube is been placed with the distal tip coursing below the level of the diaphragm though not included in the [id number] of this x-ray.Right IJ [place] Fabiana catheter is been placed with the [...] Results - TueFeb 18, 2016 12:51 PM SWIMMING PROFESSOR LINE [facility] 1V CXR Clinical Indication: Male, 75 years old. ET tube and line placement Comparison: X-ray February 17, 2016 Findings: ET tube has been placed with its tip projected above the level of the angelo. NG tube is been placed with the distal tip coursing below the level of the diaphragm though not included in the [id number]-[id number] of this x-ray. Right IJ [place] Fabiana catheter is been placed with the [...] PM) Component Value Range PATHOLOGY REPORT [facility] [email or web address] Mercy Rosado MD, PhD, Director of Anatomic Pathology Department of Pathology and Laboratory Medicine [address] [place] [id number] Surgical Pathology Office: [phone] SURGICAL PATHOLOGY REPORT NAME: AJ CONNOLLY Kuldeep SURG PATH #: [id number] MR #: [id number] SPECIMEN CLASS: SR BILLING #: [id number] ALT ID #: LOCATION: [facility] DATE OF PROCEDURE: 02/18/2016 AGE: 75 SEX: [...] 0.3 cm aggregate Calcifications: No Cassette A1- Cheese Specialist sections of valve. (jkh) jkh/02/18/2016 ANESTHESIA TRANSEESOPHAGEAL ECHOCARDIOGRAM (02/18/2016 11:53 AM) Narrative Faustina Montgomery MD [...] Physician requesting echo: MARY ADAMS CPT codes: 16258 - ARNIE 2D imaging (w or w/o M-mode) including probe placement, image acquisition, interpretation & report, 17775 - PWD and/or CWD f/u or limited study and 97477 - Color flow velocity mapping Patient location: [...] Apical anterior: normal Apical inferior: normal [place] Basal anteroseptal: normal Basal inferolateral: normal Mid anteroseptal: normal Mid inferolateral: normal Apical lateral: normal Apical septal: normal [place]: normal Mid [place] Mid anteroseptal: normal Mid anterior: normal [...] PULMONARY ARTERY CATHETER INSERTION (02/18/2016 11:53 AM) Julián Montgomery MD [...] Physician requesting echo: MARY ADAMS CPT codes: 26028 - ARNIE 2D imaging (w or w/o M-mode) including probe placement, image acquisition, interpretation & report, 25181 - PWD and/or CWD f/u or limited study and 75059 - Color flow velocity mapping Patient location: [...] Apical anterior: normal Apical inferior: normal [place] Basal anteroseptal: normal Basal inferolateral: normal Mid anteroseptal: normal Mid inferolateral: normal Apical lateral: normal Apical septal: normal [place]: normal Mid [place] Mid anteroseptal: normal Mid anterior: normal [...] Physician requesting echo: MARY ADAMS CPT codes: 39664 - ARNIE 2D imaging (w or w/o M-mode) including probe placement, image acquisition, interpretation & report, 34520 - PWD and/or CWD f/u or limited study and 73600 - Color flow velocity mapping Patient location: [...] Apical anterior: normal Apical inferior: normal [place] Basal anteroseptal: normal Basal inferolateral: normal Mid anteroseptal: normal Mid inferolateral: normal Apical lateral: normal Apical septal: normal [place]: normal Mid [place] Mid anteroseptal: normal Mid anterior: normal [...] ANESTHESIA ARTERIAL LINE INSERTION (02/18/2016 11:53 AM) Julián Montgomery [...] Surgeon: MARY ADAMS Performed personally Indication for ARINE: assessment of ascending aorta, assessment of surgical repair, ventricular function, volume assessment, confirmation of pre-procedure diagnosis and valvular assessment Physician requesting echo: MARY ADAMS CPT codes: 84762 - ARNIE 2D imaging (w or w/o M-mode) including probe placement, image acquisition, interpretation & report, 81660 - PWD and/or CWD f/u or limited study and 59688 - Color flow velocity mapping Patient location: [...] Apical anterior: normal Apical inferior: normal [place] Basal anteroseptal: normal Basal inferolateral: normal Mid anteroseptal: normal Mid inferolateral: normal Apical lateral: normal Apical septal: normal [place]: normal Mid [place] Mid anteroseptal: normal Mid anterior: normal [...] FINAL 02/23/2016 Specimen Tissue - Aortic Valve BNP (B-TYPE NATRIURETIC PEPTI) (02/17/2016 12:08 PM) [...] Range Color,UA YELLOW Turbidity,UA CLEAR CLEAR-CLEAR Specific [place]-Urine 1.017 1.003-1.035 pH,UA 6.0 5.0-8.0 Protein,UA 1+ [...] Screen NEG Electronic Crossmatch YES Unit Number [id number] Blood Component Type RBC,ADSOL,LEUKO REDUCED,2ND CONT. Unit Division 0 Status OF Unit REL FROM ALLOC Transfusion Status OK TO TRANSFUSE Crossmatch Result COMPATIBLE,ELECTRONIC Unit Number [id number] Blood Component Type RBC,ADSOL,LEUKO REDUCED Unit Division 0 Status OF Unit REL FROM ALLOC Transfusion Status OK TO TRANSFUSE Crossmatch Result COMPATIBLE,ELECTRONIC Unit Number [id number] Blood Component Type RBC,ADSOL,LEUKO REDUCED Unit Division 0 Status OF Unit TRANSFUSED Transfusion Status OK TO TRANSFUSE Crossmatch Result COMPATIBLE,ELECTRONIC Unit Number [id number] Blood Component Type RBC,ADSOL,LEUKO REDUCED Unit Division 0 Status OF Unit REL FROM ALLOC Transfusion Status OK TO TRANSFUSE Crossmatch Result COMPATIBLE,ELECTRONIC Unit Number [id number] Blood Component Type RBC,ADSOL,LEUKO REDUCED Unit Division [...] Procedure Note TueFeb 13, 2016 7:23 PM [facility] CARDIAC CATHETERIZATION REPORT Page 2 AJ Power : 1940 #: [id number] MR #/Billing ID #: [id number] / [id number] DATE: 02/13/2016 CASH REGISTER SERVICER: Robin Suarez MD DICTATING PROVIDER: Raffi Valencia MD REFERRING PHYSICIAN: Chino Fitzgerald MD INTERVENTIONAL FELLOW: Pedro Hoffamnn MD. INDICATIONS FOR PROCEDURE: Mr. Connolly is [...] modified Seldinger technique. Over a wire, a 6-[place] sheath was placed. After that, we used [...] supervised the entire procedure. MD RUDY Miramontes/Елена /[id number] cc: - Chino Fitzgerald MD FERRITIN (02/14/2016 12:45 PM) Component Value Range [...] % FEV1-Pre 1.88 L FEV1-%Pred-Pre 62 % SVT2166-Ofd 1.44 L/sec EHA4151-%Pred-Pre 67 % PEF-Pre 303.1 L/min PV CAROTID [...] Results - TueFeb 13, 2016 3:28 PM SWIMMING PROFESSOR Single view [employer]. Clinical Indication: 75 years [...] Referring Provider Chino Fitzgerald CV ECHO PV HOGSHEAD BUILDER Vanesa KNUTSON LVIDD 5.7 4.2-5.9 cm LVIDS [...] Horton et al. Am J. Cardiol. 2008, [id number]:[id number]. The "goal" should be less than 130 [...]
== END 2016-06-15 | disposition home or self-care (01) ==
LOC: CARD 12:14
PROVIDERS: ATTEND Physician Assistant
DX: I10 Essential (primary) hypertension (principal); I35.8 Other nonrheumatic aortic valve disorders; R06.02 Shortness of breath; Z95.2 Presence of prosthetic heart valve
CPT/HCPCS: 93225; 93226

== ENCOUNTER 2016-04-08 09:51 | Outpatient (RCR) | payer MEDICARE ==
--- OUTSIDE RECORDS SUMMARY | 2016-04-08 09:56 | XMS REPORT | Continuity of Care Document ---
Author Author [facility] Organization [facility] Address Unknown Phone Unavailable Care Team Providers Care Blueprinter Name Role Phone France Ferrara PCP [phone] Source Comments Some departments are not documenting in the electronic medical record. If you do not see the information that you expected, contact Release of Information in the Health Information Management department at [phone] for further assistance in locating additional records.[facility] Active Allergies and Adverse Reactions No [...] mL oral solution 4 hours as needed. oxyCODONE/acetaminophen Take 1-2 Tabs by mouth 30 Tab 0 02/23/19 Discontin (PERCOCET) 5/325 mg every 4 hours as needed 17 17 ued tablet for Pain Earliest Fill Date: 02/24/16 Max 12 tabs/day levoFLOXacin (LEVAQUIN) Take 500 mg by mouth 02/28/19 03/17/19 500 mg tablet daily. 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 Pulmonary edema 02/12/2016 Most Recent Encounters Date Type Specialty Providers Description 03/10/2016 [facility] Radiology Mary Adams MD Encounter 03/10/2016 Hospital Cardiology Mary Adams MD Encounter 03/10/2016 [...] Cardiology Cath, Physician Left Heart Catheterization 02/12/2016 [facility] Chino Fitzgerald MD Infective endocarditis of [...] Taken Blood Pressure 134/72 03/10/2016 11:07 AM [facility] Pulse 67 03/10/2016 11:07 AM [facility] Temperature 36.5 C (97.7 F) 02/24/2016 11:10 AM [facility] Respiratory Rate - - Height 1.778 m (5' 10") 03/10/2016 11:07 AM [facility] Weight 98.294 kg (216 lb 11.2 03/10/2016 11:07 AM [facility] oz) Body Mass Index 31.09 03/10/2016 11:07 AM [facility] Oxygen Saturation 94% 03/10/2016 11:07 AM [facility] Plan of Care Health Maintenance Due Date Last Done Comments Physical (Comprehensive) 1947 Exam Pertussis Vaccine 1950 Tetanus Vaccine 1956 Shingles Vaccine 1999 Prevnar/Pneumovax (#1) 2004 Influenza Vaccine 10/23/2015 Procedures from Last 3 Months Procedure Name Priority Date/Time Associated Diagnosis Comments TELEMETRY STRIPS-SCAN 02/27/2016 Results for this 8:03 AM [facility] procedure are in the results section. TELEMETRY STRIPS-SCAN 02/27/2016 Results for this 8:03 AM [facility] procedure are in the results section. TELEMETRY STRIPS-SCAN 02/27/2016 Results for this 8:03 AM [facility] procedure are in the results section. TELEMETRY STRIPS-SCAN 02/27/2016 Results for this 8:03 AM [facility] procedure are in the results section. TELEMETRY STRIPS-SCAN 02/27/2016 Results for this 8:03 AM [facility] procedure are in the results section. TELEMETRY STRIPS-SCAN 02/27/2016 Results for this 8:01 AM [facility] procedure are in the results section. TELEMETRY STRIPS-SCAN 02/27/2016 Results for this 8:01 AM [facility] procedure are in the results section. TELEMETRY STRIPS-SCAN 02/27/2016 Results for this 8:01 AM [facility] procedure are in the results section. TELEMETRY STRIPS-SCAN 02/27/2016 Results for this 8:01 AM [facility] procedure are in the results section. TELEMETRY STRIPS-SCAN 02/27/2016 Results for this 8:01 AM [facility] procedure are in the results section. PULMONARY FUNCTION 02/26/2016 Results for this STUDY-SCAN 11:30 AM [facility] procedure are in the results section. PROCEDURE RECORD-SCAN 02/26/2016 Results for this 11:30 AM [facility] procedure are in the results section. PROCEDURE RECORD-SCAN 02/26/2016 Results for this 11:29 AM [facility] procedure are in the results section. ECG UNCONFIRMED-SCAN 02/26/2016 Results for this 11:26 AM [facility] procedure are in the results section. ECG UNCONFIRMED-SCAN 02/26/2016 Results for this 11:26 AM [facility] procedure are in the results section. ECG UNCONFIRMED-SCAN 02/26/2016 Results for this 11:26 AM [facility] procedure are in the results section. ECG-SCAN 02/26/2016 Results for this 11:25 AM [facility] procedure are in the results section. ECG-SCAN 02/26/2016 Results for this 9:26 AM [facility] procedure are in the results section. ECG-SCAN 02/21/2016 Results for this 7:14 AM [facility] procedure are in the results section. ECG-SCAN 02/20/2016 Results for this 7:15 AM [facility] procedure are in the results section. ANESTHESIA Routine 02/18/2016 Results for this TRANSEESOPHAGEAL 11:53 AM [facility] procedure are in the ECHOCARDIOGRAM results section. ANESTHESIA PULMONARY Routine 02/18/2016 Results for this ARTERY CATHETER INSERTION 11:53 AM [facility] procedure are in the results section. ANESTHESIA CENTRAL LINE Routine 02/18/2016 Results for this INSERTION 11:53 AM [facility] procedure are in the results section. ANESTHESIA ARTERIAL LINE Routine 02/18/2016 Results for this INSERTION 11:53 AM [facility] procedure are in the results section. ECG-SCAN 02/14/2016 Results for this 8:56 AM [facility] procedure are in the results section. Results [...] Results - TueMar 10, 2016 2:57 PM [facility] CHEST 2 VIEWS CLINICAL HISTORY: Male, 75 [...] - Sun Feb 22, 2016 9:35 AM [facility] Procedure: CHEST SINGLE VIEW Clinical Indication: Atelectasis [...] included. Component Value Range PH-ART-POC 7.35 7.35-7.45 MPL4-CCU-MDW 39 35-45 MMHG PO2-ART-POC 84 80-100 MMHG Base Def-ART-POC 5.0 MMOL/L O2 Sat-ART-POC 96.0 95-99 % Qmfbuokkfyw-CZC-IWC 21.2 21-28 MMOL/L POC IONIZED CALCIUM (02/18/2016 [...] M.D. on 02/18/2016 12:44 PM. Narrative [facility] 1V CXR Clinical Indication: Male, 75 years old. ET tube and line placement Comparison: X-ray February 17, 2016 Findings: ET tube has been placed with its tip projected above the level of the angelo. NG tube is been placed with the distal tip coursing below the level of the diaphragm though not included in the lbnyk-jx-dupw of this x-ray.Right IJ [place] Fabiana catheter is been placed with the [...] arthrosis. Procedure Note Interface, Radiant Results - Wed Feb 18, 2016 12:51 PM [facility] 1V CXR Clinical Indication: Male, 75 years old. ET tube and line placement Comparison: X-ray February 17, 2016 Findings: ET tube has been placed with its tip projected above the level of the angelo. NG tube is been placed with the distal tip coursing below the level of the diaphragm though not included in the stzbv-mu-xmet of this x-ray. Right IJ [place] Fabiana catheter is been placed with the [...] PM) Component Value Range PATHOLOGY REPORT [facility] [email or web address] Mercy Rosado MD, PhD, Director of Anatomic Pathology Department of Pathology and Laboratory Medicine [address] [place] [phone] Surgical Pathology Office: [phone] SURGICAL PATHOLOGY REPORT NAME: AJ CONNOLLY SURG PATH #: [id number] MR #: [id number] SPECIMEN CLASS: SR BILLING #: [id number] ALT ID #: LOCATION: CT DATE OF PROCEDURE: 02/18/2016 AGE: 75 SEX: [...] 0.3 cm aggregate Calcifications: No Cassette A1- General Labor sections of valve. (jkh) jkh/02/18/2016 ANESTHESIA TRANSEESOPHAGEAL [...] Physician requesting echo: MARY ADAMS CPT codes: 25976 - ARNIE 2D imaging (w or w/o M-mode) including probe placement, image acquisition, interpretation & report, 30365 - PWD and/or CWD f/u or limited study and 53583 - Color flow velocity mapping Patient location: [...] Apical anterior: normal Apical inferior: normal Long [place] View Basal anteroseptal: normal Basal inferolateral: normal Mid anteroseptal: normal Mid inferolateral: normal Apical lateral: normal Apical septal: normal [place]: normal Mid Short [place] View Mid anteroseptal: normal Mid anterior: normal [...] Physician requesting echo: MARY ADAMS CPT codes: 68625 - ARNIE 2D imaging (w or w/o M-mode) including probe placement, image acquisition, interpretation & report, 01713 - PWD and/or CWD f/u or limited study and 87013 - Color flow velocity mapping Patient location: [...] Apical anterior: normal Apical inferior: normal Long [place] View Basal anteroseptal: normal Basal inferolateral: normal Mid anteroseptal: normal Mid inferolateral: normal Apical lateral: normal Apical septal: normal [place]: normal Mid Short [place] View Mid anteroseptal: normal Mid anterior: normal [...] of the mitral valve: no Return to [facility] for echo-related diagnosis: no Aorta intact after [...] Physician requesting echo: MARY ADAMS CPT codes: 81840 - ARNIE 2D imaging (w or w/o M-mode) including probe placement, image acquisition, interpretation & report, 94518 - PWD and/or CWD f/u or limited study and 92435 - Color flow velocity mapping Patient location: [...] Apical anterior: normal Apical inferior: normal Long [place] View Basal anteroseptal: normal Basal inferolateral: normal Mid anteroseptal: normal Mid inferolateral: normal Apical lateral: normal Apical septal: normal [place]: normal Mid Short [place] View Mid anteroseptal: normal Mid anterior: normal [...] Physician requesting echo: MARY ADAMS CPT codes: 40978 - ARNIE 2D imaging (w or w/o M-mode) including probe placement, image acquisition, interpretation & report, 74348 - PWD and/or CWD f/u or limited study and 44451 - Color flow velocity mapping Patient location: [...] Apical anterior: normal Apical inferior: normal Long [place] View Basal anteroseptal: normal Basal inferolateral: normal Mid anteroseptal: normal Mid inferolateral: normal Apical lateral: normal Apical septal: normal [place]: normal Mid Short [place] View Mid anteroseptal: normal Mid anterior: normal [...] SEEN Report Status FINAL 02/18/2016 Specimen Tissue CULTURE-FUNGAL,OTHER (02/18/2016 9:34 AM) Component Value Range Battery Name FUNGUS CULTURE Specimen Description TISSUE NON CORONARY AORTIC VALVE LEAFLET Special Requests NONE Culture NO GROWTH OF FUNGUS AT 4 WEEKS Report Status FINAL 03/22/2016 Specimen Tissue - Aortic Valve CULTURE-WOUND/TISSUE/FLUID(AEROBIC ONLY)W/SENSITIVITY (02/18/2016 9:34 AM) Component Value [...] Range Color,UA YELLOW Turbidity,UA CLEAR CLEAR-CLEAR Specific [place]-Urine 1.017 1.003-1.035 pH,UA 6.0 5.0-8.0 Protein,UA 1+ [...] Screen NEG Electronic Crossmatch YES Unit Number [id number] Blood Component Type RBC,ADSOL,LEUKO REDUCED,2ND CONT. Unit Division 0 Status OF Unit REL FROM ALLOC Transfusion Status OK TO TRANSFUSE Crossmatch Result COMPATIBLE,ELECTRONIC Unit Number [id number] Blood Component Type RBC,ADSOL,LEUKO REDUCED Unit Division 0 Status OF Unit REL FROM ALLOC Transfusion Status OK TO TRANSFUSE Crossmatch Result COMPATIBLE,ELECTRONIC Unit Number [id number] Blood Component Type RBC,ADSOL,LEUKO REDUCED Unit Division 0 Status OF Unit TRANSFUSED Transfusion Status OK TO TRANSFUSE Crossmatch Result COMPATIBLE,ELECTRONIC Unit Number [id number] Blood Component Type RBC,ADSOL,LEUKO REDUCED Unit Division 0 Status OF Unit REL FROM ALLOC Transfusion Status OK TO TRANSFUSE Crossmatch Result COMPATIBLE,ELECTRONIC Unit Number [id number] Blood Component Type RBC,ADSOL,LEUKO REDUCED Unit Division [...] Procedure Note TueFeb 13, 2016 7:23 PM [facility] CARDIAC CATHETERIZATION REPORT Page 2 AJ Power : 1940 #: [id number] MR #/Billing ID #: [id number] / [id number] DATE: 02/13/2016 BUSINESS ANALYST: Robin Suarez MD DICTATING PROVIDER: Raffi Valencia [...] modified Seldinger technique. Over a wire, a 6-[place] sheath was placed. After that, we used [...] supervised the entire procedure. MD RUDY Miramontes/Елена /[id number] cc: - MD DAYLIN Mendez (02/14/2016 12:45 PM) Component Value Range Ferritin [...] % FEV1-Pre 1.88 L FEV1-%Pred-Pre 62 % [id number] 1.44 L/sec [id number]-%Pred-Pre 67 % PEF-Pre 303.1 L/min PV CAROTID [...] Results - TueFeb 13, 2016 3:28 PM [facility] Single view [employer]. Clinical Indication: 75 years [...] Referring Provider Chino Fitzgerald CV ECHO PV GROUP COUNSELOR Vanesa KNUTSON LVIDD 5.7 4.2-5.9 cm LVIDS [...] Horton et al. Am J. Cardiol. 2008, [phone]. The "goal" should be less than 130 [...]
[2016-04-08 10:01] LABS: BASOPHILS % (AUTO) 1 % (0-10); EOSINOPHILS # (AUTO) 0.4 10^3/uL (0.0-0.3); EOSINOPHILS % (AUTO) 7 % (0-10); LYMPHOCYTES # (AUTO) 1.4 X 10^3 (1.0-4.0); LYMPHOCYTES % (AUTO) 22 % (12-44); MEAN CORPUSCULAR HEMOGLOBIN 26 PG (25-34); MEAN CORPUSCULAR HGB CONC 31 G/DL (32-36); MEAN CORPUSCULAR VOLUME 85 FL (80-99); MEAN PLATELET VOLUME 8.2 FL (7.4-10.4); MONOCYTES # (AUTO) 0.7 X 10^3 (0.0-1.0); MONOCYTES % (AUTO) 10 % (0-12); NEUTROPHILS # (AUTO) 3.9 X 10^3 (1.8-7.8); NEUTROPHILS % (AUTO) 61 % (42-75); PLATELET COUNT 303 10^3/uL (130-400); RED BLOOD COUNT 3.67 10^6/uL (4.35-5.85); RED CELL DISTRIBUTION WIDTH 22.7 % (10.0-14.5); WHITE BLOOD COUNT 6.5 10^3/uL (4.3-11.0)
[2016-04-08 10:24] LABS: PEP REPORT SEE PATH REPORT
[2016-04-08 10:49] LABS: ALANINE AMINOTRANSFERASE 17 U/L (0-55); ALBUMIN 3.7 G/DL (3.2-4.5); ANION GAP 7 MMOL/L (5-14); ASPARTATE AMINO TRANSFERASE 23 U/L (5-34); BILIRUBIN,TOTAL 0.3 MG/DL (0.1-1.0); BLOOD UREA NITROGEN 18 MG/DL (7-18); BUN/CREATININE RATIO 17; CARBON DIOXIDE 25 MMOL/L (21-32); CHLORIDE 106 MMOL/L (98-107); CREATININE SERUM 1.03 MG/DL (0.60-1.30); GFR ESTIMATED > 60; GLUCOSE 124 MG/DL (70-105); POTASSIUM 4.5 MMOL/L (3.6-5.0); SODIUM 138 MMOL/L (135-145)
[2016-04-09 02:34] LABS: IMMUNOGLOBULIN IGA 249 mg/dL (71-263); IMMUNOGLOBULIN IGG 1513 mg/dL (672-1680); LIGHT CHAIN KAPPA SERUM QUANT 60.11 mg/L (3.30-19.40); LIGHT CHAIN LAMBDA SERUM QUANT 22.84 mg/L (5.71-26.30)
[2016-04-09 07:11] LABS: IMMUNOGLOBULIN IGM 40 mg/dL (47-209)
[2016-04-13 07:45] LABS: CLIN PATHOLOGY REPORT FOOTNOTE; SERUM PROTEIN ELEC DETAIL L-17-0002207
== END 2016-07-07 | disposition home or self-care (01) ==
LOC: ONC 09:51
PROVIDERS: ATTEND Internal Medicine Hematology & Oncology
DX: D64.9 Anemia, unspecified (principal)
CPT/HCPCS: 36415; 80053; 82728; 82784; 83883; 84155; 84165; 85025; 99213

== ENCOUNTER → 2016-04-21 | Day surgery (SDC) | payer MEDICARE ==
[~2016-04-21] VITALS: Ht 177.8 cm; Wt 101.6 kg
[~2016-04-21] MED LIST changes: +LIDOCAINE 1% INJ 20 ML (XYLOCAINE) VIAL ONE
--- OUTSIDE RECORDS SUMMARY | 2016-04-21 09:28 | XMS REPORT | Continuity of Care Document ---
Author Author [facility] Organization [facility] Address Unknown Phone Unavailable Care Team Providers Care Transportation Services Representative Name Role Phone France Ferrara PCP [phone] Source Comments Some departments are not documenting in the electronic medical record. If you do not see the information that you expected, contact Release of Information in the Health Information Management department at [phone] for further assistance in locating additional records.[facility] Active Allergies and Adverse Reactions No [...] mL oral solution 4 hours as needed. 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 Pulmonary edema 02/12/2016 Most Recent Encounters Date Type Specialty Providers Description 03/10/2016 Hospital Radiology Mary Adams MD Encounter 03/10/2016 [...] Cardiology Cath, Physician Left Heart Catheterization 02/12/2016 [facility] Chino Fitzgerald MD Infective endocarditis of - Encounter Michael Anton MD aortic valve 02/24/2016 Mary Adams MD 01/28/2016 Ancillary Radiology Outpatient, Radiologist Diagnosis unknown Orders (Primary Dx) Social History Tobacco Use Types Packs/Day Years Used Date Former Smoker Cigarettes Quit: 02/12/1976 Alcohol Use Drinks/Week oz/Week Comments No 0 Standard 0.0 drinks or equivalent Last Filed Vital Signs Vital Sign Reading Time Taken Blood Pressure 134/72 03/10/2016 11:07 AM PLATING DEPARTMENT HELPER Pulse 67 03/10/2016 11:07 AM PLATING DEPARTMENT HELPER Temperature 36.5 C (97.7 F) 02/24/2016 11:10 AM PLATING DEPARTMENT HELPER Respiratory Rate - - Height 1.778 m (5' 10") 03/10/2016 11:07 AM PLATING DEPARTMENT HELPER Weight 98.294 kg (216 lb 11.2 03/10/2016 11:07 AM PLATING DEPARTMENT HELPER oz) Body Mass Index 31.09 03/10/2016 11:07 AM PLATING DEPARTMENT HELPER Oxygen Saturation 94% 03/10/2016 11:07 AM PLATING DEPARTMENT HELPER Plan of Care Health Maintenance Due Date Last Done Comments Physical (Comprehensive) 1947 Exam Pertussis Vaccine 1950 Tetanus Vaccine 1956 Shingles Vaccine 1999 Prevnar/Pneumovax (#1) 2004 Influenza Vaccine 10/23/2015 Procedures from Last 3 Months Procedure Name Priority Date/Time Associated Diagnosis Comments TELEMETRY STRIPS-SCAN 02/27/2016 Results for this 8:03 AM PLATING DEPARTMENT HELPER procedure are in the results section. TELEMETRY STRIPS-SCAN 02/27/2016 Results for this 8:03 AM PLATING DEPARTMENT HELPER procedure are in the results section. TELEMETRY STRIPS-SCAN 02/27/2016 Results for this 8:03 AM PLATING DEPARTMENT HELPER procedure are in the results section. TELEMETRY STRIPS-SCAN 02/27/2016 Results for this 8:03 AM PLATING DEPARTMENT HELPER procedure are in the results section. TELEMETRY STRIPS-SCAN 02/27/2016 Results for this 8:03 AM PLATING DEPARTMENT HELPER procedure are in the results section. TELEMETRY STRIPS-SCAN 02/27/2016 Results for this 8:01 AM PLATING DEPARTMENT HELPER procedure are in the results section. TELEMETRY STRIPS-SCAN 02/27/2016 Results for this 8:01 AM PLATING DEPARTMENT HELPER procedure are in the results section. TELEMETRY STRIPS-SCAN 02/27/2016 Results for this 8:01 AM PLATING DEPARTMENT HELPER procedure are in the results section. TELEMETRY STRIPS-SCAN 02/27/2016 Results for this 8:01 AM PLATING DEPARTMENT HELPER procedure are in the results section. TELEMETRY STRIPS-SCAN 02/27/2016 Results for this 8:01 AM PLATING DEPARTMENT HELPER procedure are in the results section. PULMONARY FUNCTION 02/26/2016 Results for this STUDY-SCAN 11:30 AM PLATING DEPARTMENT HELPER procedure are in the results section. PROCEDURE RECORD-SCAN 02/26/2016 Results for this 11:30 AM PLATING DEPARTMENT HELPER procedure are in the results section. PROCEDURE RECORD-SCAN 02/26/2016 Results for this 11:29 AM PLATING DEPARTMENT HELPER procedure are in the results section. ECG UNCONFIRMED-SCAN 02/26/2016 Results for this 11:26 AM PLATING DEPARTMENT HELPER procedure are in the results section. ECG UNCONFIRMED-SCAN 02/26/2016 Results for this 11:26 AM PLATING DEPARTMENT HELPER procedure are in the results section. ECG UNCONFIRMED-SCAN 02/26/2016 Results for this 11:26 AM PLATING DEPARTMENT HELPER procedure are in the results section. ECG-SCAN 02/26/2016 Results for this 11:25 AM PLATING DEPARTMENT HELPER procedure are in the results section. ECG-SCAN 02/26/2016 Results for this 9:26 AM PLATING DEPARTMENT HELPER procedure are in the results section. ECG-SCAN 02/21/2016 Results for this 7:14 AM PLATING DEPARTMENT HELPER procedure are in the results section. ECG-SCAN 02/20/2016 Results for this 7:15 AM PLATING DEPARTMENT HELPER procedure are in the results section. ANESTHESIA Routine 02/18/2016 Results for this TRANSEESOPHAGEAL 11:53 AM PLATING DEPARTMENT HELPER procedure are in the ECHOCARDIOGRAM results section. ANESTHESIA PULMONARY Routine 02/18/2016 Results for this ARTERY CATHETER INSERTION 11:53 AM PLATING DEPARTMENT HELPER procedure are in the results section. ANESTHESIA CENTRAL LINE Routine 02/18/2016 Results for this INSERTION 11:53 AM PLATING DEPARTMENT HELPER procedure are in the results section. ANESTHESIA ARTERIAL LINE Routine 02/18/2016 Results for this INSERTION 11:53 AM PLATING DEPARTMENT HELPER procedure are in the results section. ECG-SCAN 02/14/2016 Results for this 8:56 AM PLATING DEPARTMENT HELPER procedure are in the results section. Results [...] Results - TueMar 10, 2016 2:57 PM PLATING DEPARTMENT HELPER CHEST 2 VIEWS CLINICAL HISTORY: Male, 75 [...] - Sun Feb 22, 2016 9:35 AM PLATING DEPARTMENT HELPER Procedure: CHEST SINGLE VIEW Clinical Indication: Atelectasis [...] included. Component Value Range PH-ART-POC 7.35 7.35-7.45 XFF0-TUA-SBM 39 35-45 MMHG PO2-ART-POC 84 80-100 MMHG Base Def-ART-POC 5.0 MMOL/L O2 Sat-ART-POC 96.0 95-99 % Hnahwjptcsp-BZZ-MZT 21.2 21-28 MMOL/L POC IONIZED CALCIUM (02/18/2016 [...] M.D. on 02/18/2016 12:44 PM. Narrative LINE PLCMI 1V CXR Clinical Indication: Male, 75 years old. ET tube and line placement Comparison: X-ray February 17, 2016 Findings: ET tube has been placed with its tip projected above the level of the angelo. NG tube is been placed with the distal tip coursing below the level of the diaphragm though not included in the wmjds-tq-gwew of this x-ray.Right IJ [place] Fabiana catheter is been placed with the [...] Results - TueFeb 18, 2016 12:51 PM PLATING DEPARTMENT HELPER LINE PLCMT 1V CXR Clinical Indication: Male, 75 years old. ET tube and line placement Comparison: X-ray February 17, 2016 Findings: ET tube has been placed with its tip projected above the level of the angelo. NG tube is been placed with the distal tip coursing below the level of the diaphragm though not included in the pqbic-ch-xjss of this x-ray. Right IJ [place] Fabiana catheter is been placed with the [...] Range PATHOLOGY REPORT [facility] [email or web address] Mercy Rosado MD, PhD, Director of Anatomic Pathology Department of Pathology and Laboratory Medicine [address] [place] [id number] Surgical Pathology Office: [phone] SURGICAL PATHOLOGY REPORT NAME: AJ CONNOLLY SURG PATH #: [id number] MR #: [id number] SPECIMEN CLASS: SR BILLING #: [id number] ALT ID #: LOCATION: [facility] DATE OF PROCEDURE: 02/18/2016 AGE: 75 SEX: [...] in this report. +++Electronically Signed Out By+++ edwarw/02/19/2016 Interpreted by: Taylor Valenzuela M.D. 02/19/2016 ################################################## ###################### Material Received: A: aortic valve leaflet History: 75-year-old male with a clinical history of aortic regurgitation. Gross Description: A. Fixative: Formalin Labeled: "Aortic valve leaflet" Dimensions: 2.5 x 2.0 x 0.3 cm aggregate Calcifications: No Cassette A1- Issue Clerk sections of valve. (jkh) jkh/02/18/2016 ANESTHESIA TRANSEESOPHAGEAL ECHOCARDIOGRAM (02/18/2016 11:53 AM) Julián Montgomery MD 02/18/2016 11:53 AM Anesthesia Procedure: Arterial Line Placement A-LINE INSERTION Date/Time: 02/18/2016 7:10 AM Patient location: Pre/Post Indications: multiple ABGs and hemodynamic monitoring Staff Anesthesiologist: TRUPTI MONTGOMERY Performed by: JOAQUINA MENDOZA Preprocedure checklist [...] access and hemodynamic pressure monitoring Staff Anesthesiologist: TRUPTI MONTGOMERY Performed by: JOAQUINA MENDOZA Preprocedure checklist [...] insertion of a Pulmonary Artery Catheter: Anesthesiologist: TRUPTI MONTGOMERY Inserted by: JOAQUINA MENDOZA Catheter Insertion Procedure Catheter type: standard Insertion depth: 50 cm Anesthesia Procedure: Transesophageal Echocardiogram ARNIE Date/Time: 02/18/2016 8:27 AM Associated procedure: AVR Preprocedure checklist performed: 2 patient identifiers, risks & benefits discussed, patient evaluated, timeout performed, consent obtained and patient being monitored Staff Anesthesiologist: TRUPTI MONTGOMERY Surgeon: MARY ADAMS Performed personally Indication for ARNIE: assessment of ascending aorta, assessment of surgical repair, ventricular function, volume assessment, confirmation of pre-procedure diagnosis and valvular assessment Physician requesting echo: MARY ADAMS CPT codes: 44281 - ARNIE 2D imaging (w or w/o M-mode) including probe placement, image acquisition, interpretation & report, 30472 - PWD and/or CWD f/u or limited study and 23359 - Color flow velocity mapping Patient location: [...] Apical anterior: normal Apical inferior: normal [place] Basal anteroseptal: normal Basal inferolateral: normal Mid anteroseptal: normal Mid inferolateral: normal Apical lateral: normal Apical septal: normal [place]: normal Mid Short [place] Mid anteroseptal: normal Mid anterior: normal [...] of the mitral valve: no Return to [facility] for echo-related diagnosis: no Aorta intact after [...] multiple ABGs and hemodynamic monitoring Staff Anesthesiologist: TRUPTI MONTGOMERY Performed by: JOAQUINA MENDOZA Preprocedure checklist [...] access and hemodynamic pressure monitoring Staff Anesthesiologist: TRUPTI MONTGOMERY Performed by: JOAQUINA MENDOZA Preprocedure checklist [...] insertion of a Pulmonary Artery Catheter: Anesthesiologist: TRUPTI MONTGOMERY Inserted by: JOAQUINA MENDOZA PA Catheter Insertion Procedure Catheter type: standard Insertion depth: 50 cm Anesthesia Procedure: Transesophageal Echocardiogram ARNIE Date/Time: 02/18/2016 8:27 AM Associated procedure: AVR Preprocedure checklist performed: 2 patient identifiers, risks & benefits discussed, patient evaluated, timeout performed, consent obtained and patient being monitored Staff Anesthesiologist: TRUPTI MONTGOMERY Surgeon: MARY ADAMS Performed personally Indication for ARNIE: assessment of ascending aorta, assessment of surgical repair, ventricular function, volume assessment, confirmation of pre-procedure diagnosis and valvular assessment Physician requesting echo: MARY ADAMS CPT codes: 28568 - ARNIE 2D imaging (w or w/o M-mode) including probe placement, image acquisition, interpretation & report, 71596 - PWD and/or CWD f/u or limited study and 22225 - Color flow velocity mapping Patient location: [...] Apical anterior: normal Apical inferior: normal [place] Basal anteroseptal: normal Basal inferolateral: normal Mid anteroseptal: normal Mid inferolateral: normal Apical lateral: normal Apical septal: normal [place]: normal Mid [place] Mid anteroseptal: normal Mid anterior: normal [...] multiple ABGs and hemodynamic monitoring Staff Anesthesiologist: TRUPTI MONTGOMERY Performed by: JOAQUINA MENDOZA Preprocedure checklist [...] access and hemodynamic pressure monitoring Staff Anesthesiologist: TRUPTI MONTGOMERY Performed by: JOAQUINA MENDOZA Preprocedure checklist [...] insertion of a Pulmonary Artery Catheter: Anesthesiologist: TRUPTI MONTGOMERY Inserted by: JOAQUINA MENDOZA Catheter Insertion Procedure Catheter type: standard Insertion depth: 50 cm Anesthesia Procedure: Transesophageal Echocardiogram ARNIE Date/Time: 02/18/2016 8:27 AM Associated procedure: AVR Preprocedure checklist performed: 2 patient identifiers, risks & benefits discussed, patient evaluated, timeout performed, consent obtained and patient being monitored Staff Anesthesiologist: TRUPTI MONTGOMERY Surgeon: MARY ADAMS Performed personally Indication for ARNIE: assessment of ascending aorta, assessment of surgical repair, ventricular function, volume assessment, confirmation of pre-procedure diagnosis and valvular assessment Physician requesting echo: MARY ADAMS CPT codes: 08432 - ARNIE 2D imaging (w or w/o M-mode) including probe placement, image acquisition, interpretation & report, 09058 - PWD and/or CWD f/u or limited study and 48650 - Color flow velocity mapping Patient location: [...] Apical anterior: normal Apical inferior: normal [place] Basal anteroseptal: normal Basal inferolateral: normal Mid anteroseptal: normal Mid inferolateral: normal Apical lateral: normal Apical septal: normal [place]: normal Mid [place] Mid anteroseptal: normal Mid anterior: normal [...] multiple ABGs and hemodynamic monitoring Staff Anesthesiologist: TRUPTI MONTGOMERY Performed by: JOAQUINA MENDOZA Preprocedure checklist [...] access and hemodynamic pressure monitoring Staff Anesthesiologist: TRUPTI MONTGOMERY Performed by: JOAQUINA MENDOZA Preprocedure checklist [...] insertion of a Pulmonary Artery Catheter: Anesthesiologist: TRUPTI MONTGOMERY Inserted by: JOAQUINA MENDOZA PA Catheter Insertion Procedure Catheter type: standard Insertion depth: 50 cm Anesthesia Procedure: Transesophageal Echocardiogram ARNIE Date/Time: 02/18/2016 8:27 AM Associated procedure: AVR Preprocedure checklist performed: 2 patient identifiers, risks & benefits discussed, patient evaluated, timeout performed, consent obtained and patient being monitored Staff Anesthesiologist: TRUPTI MONTGOMERY Surgeon: MARY ADAMS Performed personally Indication for ARNIE: assessment of ascending aorta, assessment of surgical repair, ventricular function, volume assessment, confirmation of pre-procedure diagnosis and valvular assessment Physician requesting echo: MARY ADAMS CPT codes: 91195 - ARNIE 2D imaging (w or w/o M-mode) including probe placement, image acquisition, interpretation & report, 05111 - PWD and/or CWD f/u or limited study and 37355 - Color flow velocity mapping Patient location: [...] Apical anterior: normal Apical inferior: normal [place] Basal anteroseptal: normal Basal inferolateral: normal Mid anteroseptal: normal Mid inferolateral: normal Apical lateral: normal Apical septal: normal [place]: normal Mid [place] Mid anteroseptal: normal Mid anterior: normal [...] Range Color,UA YELLOW Turbidity,UA CLEAR CLEAR-CLEAR Specific [place]-Urine 1.017 1.003-1.035 pH,UA 6.0 5.0-8.0 Protein,UA 1+ [...] Screen NEG Electronic Crossmatch YES Unit Number [id number] Blood Component Type RBC,ADSOL,LEUKO REDUCED,2ND CONT. Unit Division 0 Status OF Unit REL FROM ALLOC Transfusion Status OK TO TRANSFUSE Crossmatch Result COMPATIBLE,ELECTRONIC Unit Number [id number] Blood Component Type RBC,ADSOL,LEUKO REDUCED Unit Division 0 Status OF Unit REL FROM ALLOC Transfusion Status OK TO TRANSFUSE Crossmatch Result COMPATIBLE,ELECTRONIC Unit Number [id number] Blood Component Type RBC,ADSOL,LEUKO REDUCED Unit Division 0 Status OF Unit TRANSFUSED Transfusion Status OK TO TRANSFUSE Crossmatch Result COMPATIBLE,ELECTRONIC Unit Number [id number] Blood Component Type RBC,ADSOL,LEUKO REDUCED Unit Division 0 Status OF Unit REL FROM ALLOC Transfusion Status OK TO TRANSFUSE Crossmatch Result COMPATIBLE,ELECTRONIC Unit Number [id number] Blood Component Type RBC,ADSOL,LEUKO REDUCED Unit Division [...] Procedure Note TueFeb 13, 2016 7:23 PM [facility] Cardiology at [facility] CARDIAC CATHETERIZATION REPORT Page 2 AJ Power : 1940 #: [id number] MR #/Billing ID #: [id number] / [id number] DATE: 02/13/2016 DRY CELL BATTERY ASSEMBLER: Robin Suarez MD DICTATING PROVIDER: Raffi Valencia [...] modified Seldinger technique. Over a wire, a 6-Sudanese sheath was placed. After that, we used [...] and supervised the entire procedure. MD RUDY Miramontes/MedV[employer] /[id number] cc: - Chino Fitzgerald MD FERRITIN (02/14/2016 [...] % FEV1-Pre 1.88 L FEV1-%Pred-Pre 62 % [id number] 1.44 L/sec FNG2704-%Pred-Pre 67 % PEF-Pre 303.1 L/min PV CAROTID [...] Results - TueFeb 13, 2016 3:28 PM PLATING DEPARTMENT HELPER Single view [employer]. Clinical Indication: 75 years [...] Referring Provider Chino Fitzgerald CV ECHO PV DOGGER Vanesa KNUTSON LVIDD 5.7 4.2-5.9 cm LVIDS [...] Cholesterol Education Program Adult Treatment Protocol-III. See Clifford et al. Am J. Cardiol. 2008, [phone]. The "goal" should be less than 130 [...] GENERAL RAD CHEST EXTERNAL IMAGING (02/12/2016 12:30 AM) Narrative This order has been auto finalized and does not contain a result. CT CHEST EXTERNAL IMAGING (02/12/2016 12:15 AM) Narrative This order has been auto finalized and does not contain a result. US LOWER EXT EXTERNAL IMAGING (02/12/2016) Narrative This order has been auto finalized and does not contain a result.
--- OUTSIDE RECORDS SUMMARY | 2016-04-21 09:30 | XMS REPORT | Continuity of Care Document ---
Author Author [facility] Organization [facility] Address Unknown Phone Unavailable Care Team Providers Care Secret Code Expert Name Role Phone France Ferrara PCP [phone] Source Comments Some departments are not documenting in the electronic medical record. 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) 02/15/2016 Type 2 diabetes mellitus without complication ([facility]) 02/15/2016 Aortic valve regurgitation 02/12/2016 Infective endocarditis [...] Cardiology Cath, Physician Left Heart Catheterization 02/12/2016 [facility] Chino Fitzgerald MD Infective endocarditis of [...] Taken Blood Pressure 134/72 03/10/2016 11:07 AM ENERGY SYSTEMS ENGINEER Pulse 67 03/10/2016 11:07 AM ENERGY SYSTEMS ENGINEER Temperature 36.5 C (97.7 F) 02/24/2016 11:10 AM ENERGY SYSTEMS ENGINEER Respiratory Rate - - Height 1.778 m (5' 10") 03/10/2016 11:07 AM ENERGY SYSTEMS ENGINEER Weight 98.294 kg (216 lb 11.2 03/10/2016 11:07 AM ENERGY SYSTEMS ENGINEER oz) Body Mass Index 31.09 03/10/2016 11:07 AM ENERGY SYSTEMS ENGINEER Oxygen Saturation 94% 03/10/2016 11:07 AM ENERGY SYSTEMS ENGINEER Plan of Care Health Maintenance Due Date Last Done Comments Physical (Comprehensive) 1947 Exam Pertussis Vaccine 1950 Tetanus Vaccine 1956 Shingles Vaccine 1999 Prevnar/Pneumovax (#1) 2004 Influenza Vaccine 10/23/2015 Procedures from Last 3 Months Procedure Name Priority Date/Time Associated Diagnosis Comments TELEMETRY STRIPS-SCAN 02/27/2016 Results for this 8:03 AM ENERGY SYSTEMS ENGINEER procedure are in the results section. TELEMETRY STRIPS-SCAN 02/27/2016 Results for this 8:03 AM ENERGY SYSTEMS ENGINEER procedure are in the results section. TELEMETRY STRIPS-SCAN 02/27/2016 Results for this 8:03 AM ENERGY SYSTEMS ENGINEER procedure are in the results section. TELEMETRY STRIPS-SCAN 02/27/2016 Results for this 8:03 AM ENERGY SYSTEMS ENGINEER procedure are in the results section. TELEMETRY STRIPS-SCAN 02/27/2016 Results for this 8:03 AM ENERGY SYSTEMS ENGINEER procedure are in the results section. TELEMETRY STRIPS-SCAN 02/27/2016 Results for this 8:01 AM ENERGY SYSTEMS ENGINEER procedure are in the results section. TELEMETRY STRIPS-SCAN 02/27/2016 Results for this 8:01 AM ENERGY SYSTEMS ENGINEER procedure are in the results section. TELEMETRY STRIPS-SCAN 02/27/2016 Results for this 8:01 AM ENERGY SYSTEMS ENGINEER procedure are in the results section. TELEMETRY STRIPS-SCAN 02/27/2016 Results for this 8:01 AM ENERGY SYSTEMS ENGINEER procedure are in the results section. TELEMETRY STRIPS-SCAN 02/27/2016 Results for this 8:01 AM ENERGY SYSTEMS ENGINEER procedure are in the results section. PULMONARY FUNCTION 02/26/2016 Results for this STUDY-SCAN 11:30 AM ENERGY SYSTEMS ENGINEER procedure are in the results section. PROCEDURE RECORD-SCAN 02/26/2016 Results for this 11:30 AM ENERGY SYSTEMS ENGINEER procedure are in the results section. PROCEDURE RECORD-SCAN 02/26/2016 Results for this 11:29 AM ENERGY SYSTEMS ENGINEER procedure are in the results section. ECG UNCONFIRMED-SCAN 02/26/2016 Results for this 11:26 AM ENERGY SYSTEMS ENGINEER procedure are in the results section. ECG UNCONFIRMED-SCAN 02/26/2016 Results for this 11:26 AM ENERGY SYSTEMS ENGINEER procedure are in the results section. ECG UNCONFIRMED-SCAN 02/26/2016 Results for this 11:26 AM ENERGY SYSTEMS ENGINEER procedure are in the results section. ECG-SCAN 02/26/2016 Results for this 11:25 AM ENERGY SYSTEMS ENGINEER procedure are in the results section. ECG-SCAN 02/26/2016 Results for this 9:26 AM ENERGY SYSTEMS ENGINEER procedure are in the results section. ECG-SCAN 02/21/2016 Results for this 7:14 AM ENERGY SYSTEMS ENGINEER procedure are in the results section. ECG-SCAN 02/20/2016 Results for this 7:15 AM ENERGY SYSTEMS ENGINEER procedure are in the results section. ANESTHESIA Routine 02/18/2016 Results for this TRANSEESOPHAGEAL 11:53 AM ENERGY SYSTEMS ENGINEER procedure are in the ECHOCARDIOGRAM results section. ANESTHESIA PULMONARY Routine 02/18/2016 Results for this ARTERY CATHETER INSERTION 11:53 AM ENERGY SYSTEMS ENGINEER procedure are in the results section. ANESTHESIA CENTRAL LINE Routine 02/18/2016 Results for this INSERTION 11:53 AM ENERGY SYSTEMS ENGINEER procedure are in the results section. ANESTHESIA ARTERIAL LINE Routine 02/18/2016 Results for this INSERTION 11:53 AM ENERGY SYSTEMS ENGINEER procedure are in the results section. ECG-SCAN 02/14/2016 Results for this 8:56 AM ENERGY SYSTEMS ENGINEER procedure are in the results section. Results [...] Results - TueMar 10, 2016 2:57 PM ENERGY SYSTEMS ENGINEER CHEST 2 VIEWS CLINICAL HISTORY: Male, 75 [...] - Sun Feb 22, 2016 9:35 AM ENERGY SYSTEMS ENGINEER Procedure: CHEST SINGLE VIEW Clinical Indication: Atelectasis [...] effusions and adjacent atelectasis. Approved by Mare Puag M.D. on 02/22/2016 8:57 AM By my [...] included. Component Value Range PH-ART-POC 7.35 7.35-7.45 MAM1-DZV-AYT 39 35-45 MMHG PO2-ART-POC 84 80-100 MMHG Base Def-ART-POC 5.0 MMOL/L O2 Sat-ART-POC 96.0 95-99 % Myzzsybqjzh-NKY-HRO 21.2 21-28 MMOL/L POC IONIZED CALCIUM (02/18/2016 [...] M.D. on 02/18/2016 12:44 PM. Narrative LINE PLCLA 1V CXR Clinical Indication: Male, 75 years old. ET tube and line placement Comparison: X-ray February 17, 2016 Findings: ET tube has been placed with its tip projected above the level of the angelo. NG tube is been placed with the distal tip coursing below the level of the diaphragm though not included in the hpdon-eq-hnqn of this x-ray.Right IJ [place] Fabiana catheter is been placed with the [...] Results - TueFeb 18, 2016 12:51 PM ENERGY SYSTEMS ENGINEER LINE PLCMT 1V CXR Clinical Indication: Male, 75 years old. ET tube and line placement Comparison: X-ray February 17, 2016 Findings: ET tube has been placed with its tip projected above the level of the angelo. NG tube is been placed with the distal tip coursing below the level of the diaphragm though not included in the mrxjy-vp-ybrn of this x-ray. Right IJ [place] Fabiana catheter is been placed with the [...] Value Range PATHOLOGY REPORT [email or web address] Mercy Rosado MD, PhD, Director of Anatomic Pathology Department of Pathology and Laboratory Medicine [address] [place] [id number] Surgical Pathology Office: [phone] SURGICAL PATHOLOGY REPORT NAME: AJ CONNOLLY SURG PATH #: [id number] MR #: [id number] SPECIMEN CLASS: SR BILLING #: [id number] ALT ID #: LOCATION: [facility] DATE OF PROCEDURE: 02/18/2016 AGE: [...] 0.3 cm aggregate Calcifications: No Cassette A1- Modern Greek Studies Professor sections of valve. (jkh) jkh/02/18/2016 ANESTHESIA TRANSEESOPHAGEAL [...] Physician requesting echo: MARY ADAMS CPT codes: 90236 - ARNIE 2D imaging (w or w/o M-mode) including probe placement, image acquisition, interpretation & report, 71520 - PWD and/or CWD f/u or limited study and 32624 - Color flow velocity mapping Patient location: [...] Apical anterior: normal Apical inferior: normal [place] View Basal anteroseptal: normal Basal inferolateral: normal Mid anteroseptal: normal Mid inferolateral: normal Apical lateral: normal Apical septal: normal [place]: normal Mid [place] View Mid anteroseptal: normal Mid anterior: normal [...] of the mitral valve: no Return to [facility] for echo-related diagnosis: no Aorta intact [...] Physician requesting echo: MARY ADAMS CPT codes: 60959 - ARNIE 2D imaging (w or w/o M-mode) including probe placement, image acquisition, interpretation & report, 39644 - PWD and/or CWD f/u or limited study and 69031 - Color flow velocity mapping Patient location: [...] Apical anterior: normal Apical inferior: normal [place] View Basal anteroseptal: normal Basal inferolateral: normal Mid anteroseptal: normal Mid inferolateral: normal Apical lateral: normal Apical septal: normal [place]: normal Mid [place] View Mid anteroseptal: normal Mid anterior: normal [...] Physician requesting echo: MARY ADAMS CPT codes: 36869 - ARNIE 2D imaging (w or w/o M-mode) including probe placement, image acquisition, interpretation & report, 99416 - PWD and/or CWD f/u or limited study and 01891 - Color flow velocity mapping Patient location: [...] Apical anterior: normal Apical inferior: normal [place] Basal anteroseptal: normal Basal inferolateral: normal Mid anteroseptal: normal Mid inferolateral: normal Apical lateral: normal Apical septal: normal [place]: normal Mid [place] Mid anteroseptal: normal Mid anterior: normal [...] Physician requesting echo: MARY ADAMS CPT codes: 58852 - ARNIE 2D imaging (w or w/o M-mode) including probe placement, image acquisition, interpretation & report, 11466 - PWD and/or CWD f/u or limited study and 22199 - Color flow velocity mapping Patient location: [...] Apical anterior: normal Apical inferior: normal [place] Basal anteroseptal: normal Basal inferolateral: normal Mid anteroseptal: normal Mid inferolateral: normal Apical lateral: normal Apical septal: normal Patterson: normal Mid [place] Mid anteroseptal: normal Mid anterior: normal [...] Range Color,UA YELLOW Turbidity,UA CLEAR CLEAR-CLEAR Specific [place]-Urine 1.017 1.003-1.035 pH,UA 6.0 5.0-8.0 Protein,UA 1+ [...] Screen NEG Electronic Crossmatch YES Unit Number [id number] Blood Component Type RBC,ADSOL,LEUKO REDUCED,2ND CONT. Unit Division 0 Status OF Unit REL FROM ALLOC Transfusion Status OK TO TRANSFUSE Crossmatch Result COMPATIBLE,ELECTRONIC Unit Number [id number] Blood Component Type RBC,ADSOL,LEUKO REDUCED Unit Division 0 Status OF Unit REL FROM ALLOC Transfusion Status OK TO TRANSFUSE Crossmatch Result COMPATIBLE,ELECTRONIC Unit Number [id number] Blood Component Type RBC,ADSOL,LEUKO REDUCED Unit Division 0 Status OF Unit TRANSFUSED Transfusion Status OK TO TRANSFUSE Crossmatch Result COMPATIBLE,ELECTRONIC Unit Number [id number] Blood Component Type RBC,ADSOL,LEUKO REDUCED Unit Division 0 Status OF Unit REL FROM ALLOC Transfusion Status OK TO TRANSFUSE Crossmatch Result COMPATIBLE,ELECTRONIC Unit Number [id number] Blood Component Type RBC,ADSOL,LEUKO REDUCED Unit Division [...] Procedure Note TueFeb 13, 2016 7:23 PM [facility] at [facility] CARDIAC CATHETERIZATION REPORT Page 2 AJ Power : 1940 #: [id number] KU MR #/Billing ID #: [id number] / [id number] DATE: 02/13/2016 LOCOMOTIVE CRANE ENGINEER: Robin Suarez MD DICTATING PROVIDER: Raffi Valencia [...] modified Seldinger technique. Over a wire, a 6-[place] sheath was placed. After that, we used [...] supervised the entire procedure. MD RUDY Miramontes/MedVicky /[id number] cc: - Chino Fitzgerald MD FERRITIN (02/14/2016 [...] % FEV1-Pre 1.88 L FEV1-%Pred-Pre 62 % QFG2269-Bem 1.44 L/sec ZBR6918-%Pred-Pre 67 % PEF-Pre 303.1 L/min PV CAROTID [...] Results - TueFeb 13, 2016 3:28 PM ENERGY SYSTEMS ENGINEER Single view Panorex. Clinical Indication: 75 years [...] Referring Provider Chino Fitzgerald CV ECHO PV BUS COMPANY MANAGER Vanesa KNUTSON LVIDD 5.7 4.2-5.9 cm LVIDS [...] Clifford et al. Am J. Cardiol. 2008, [id number]:[id number]. The "goal" should be less than 130 [...]
[2016-04-21 10:43] VITALS: BP 147/77
--- NOTE | 2016-04-22 12:02 | DISCHARGE SUMMARY ---
PROCEDURE PHYSICIAN: WENDY BAI REVEAL DEVICE IMPLANTATION: DATE OF PROCEDURE: 04/21/2016 BRIEF HISTORY: Mr. Connolly is a 76-year-old gentleman with history of endocarditis. He had aortic valve replacement and has paroxysmal atrial fibrillation after the valve replacement. Has been on amiodarone and Coumadin. He has been having occasional palpitation. He has been in sinus rhythm. We discussed discontinuation of the amiodarone and Coumadin and placement of the Reveal device for closer monitoring for arrhythmia and evaluate the need for long-term oral anticoagulation. PROCEDURE NOTE: After explaining the procedure to the patient, all pros and cons were explained. All questions were answered. The patient signed a consent, then he was placed in the holding area. No sedation was needed. Local anesthesia applied. A small skin incision was made. Then Reveal LINQ [employer]Share with serial number [id number] placed subcutaneously. Manual pressure applied, Dermabond applied. No complication noted. CONCLUSION: Successful reveal device implantation with no complications. FINAL DIAGNOSIS: 1. Paroxysmal atrial fibrillation. 2. Palpitation. 3. Aortic valve replacement. 4. Hypertension Job ID: [id number] Dictated Date: 04/21/2016 12:22:37 A R Specialist Date: 04/22/2016 12:00:15/angela
== END ==
LOC: CATH 09:22
PROVIDERS: ATTEND Internal Medicine Cardiovascular Disease
DX: I48.0 Paroxysmal atrial fibrillation (principal); I10 Essential (primary) hypertension; E11.9 Type 2 diabetes mellitus without complications; Z95.2 Presence of prosthetic heart valve; Z79.899 Other long term (current) drug therapy; Z79.84 Long term (current) use of oral hypoglycemic drugs
CPT/HCPCS: 33282

== ENCOUNTER 2016-06-16 10:17 | Outpatient (RCR) | payer MEDICARE ==
--- OUTSIDE RECORDS SUMMARY | 2016-03-19 09:49 | XMS REPORT | Continuity of Care Document ---
Author Author [facility] Organization [facility] Address Unknown Phone Unavailable Care Team Providers Care Certified Registered Dental Assistant Name Role Phone France Ferrara PCP [phone] Source Comments Some departments are not documenting in the electronic medical record. If you do not see the information that you expected, contact Release of Information in the Health Information Management department at [phone] for further assistance in locating additional records.[facility] Active Allergies and Adverse Reactions No Known [...] Active (LOPRESSOR) 50 mg tablet daily. 17 lisinopril (PRINIVIL; Take 20 mg by [...] 0.9 % days. 100 mL IVPB (MB+) levoFLOXacin (LEVAQUIN) Take 500 mg by mouth 02/28/19 03/17/19 500 mg tablet daily. 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 Pulmonary edema 02/12/2016 Most Recent Encounters Date Type Specialty Providers Description 03/10/2016 [facility] Radiology Mary Adams MD Encounter 03/10/2016 [facility] Cardiology Mary Adams MD Encounter 03/10/2016 Office Visit Cardiothoracic Surgery Mary [...] Cardiology Cath, Physician Left Heart Catheterization 02/12/2016 [facility] Chino Fitzgerald MD Infective endocarditis [...] Taken Blood Pressure 134/72 03/10/2016 11:07 AM [facility]UL DR[facility] Pulse 67 03/10/2016 11:07 AM [facility] DR[facility] Temperature 36.5 C (97.7 F) 02/24/2016 11:10 AM HAUL DRIVER Respiratory Rate - - Height 1.778 m (5' 10") 03/10/2016 11:07 AM HA[facility] DRIVER Weight 98.294 kg (216 lb 11.2 03/10/2016 11:07 AM HAUL DRIVER oz) Body Mass Index 31.09 03/10/2016 11:07 AM HAUL DRIVER Oxygen Saturation 94% 03/10/2016 11:07 AM HAUL DRIVER Plan of Care Health Maintenance Due Date Last Done Comments Physical (Comprehensive) 1947 Exam Pertussis Vaccine 1950 Tetanus Vaccine 1956 Shingles Vaccine 1999 Prevnar/Pneumovax (#1) 2004 Influenza Vaccine 10/23/2015 Procedures from Last 3 Months Procedure Name Priority Date/Time Associated Diagnosis Comments TELEMETRY STRIPS-SCAN 02/27/2016 Results for this 8:03 AM HAUL DRIVER procedure are in the results section. TELEMETRY STRIPS-SCAN 02/27/2016 Results for this 8:03 AM [facility] DRIVER procedure are in the results section. TELEMETRY STRIPS-SCAN 02/27/2016 Results for this 8:03 AM [facility] DRIVER procedure are in the results section. TELEMETRY STRIPS-SCAN 02/27/2016 Results for this 8:03 AM [facility] DR[facility] procedure are in the results section. TELEMETRY STRIPS-SCAN 02/27/2016 Results for this 8:03 AM [facility] DRIVER procedure are in the results section. TELEMETRY STRIPS-SCAN 02/27/2016 Results for this 8:01 AM [facility] DRIVER procedure are in the results section. TELEMETRY STRIPS-SCAN 02/27/2016 Results for this 8:01 AM [facility] DRIVER procedure are in the results section. TELEMETRY STRIPS-SCAN 02/27/2016 Results for this 8:01 AM [facility] DR[facility] procedure are in the results section. TELEMETRY STRIPS-SCAN 02/27/2016 Results for this 8:01 AM [facility] DRIVER procedure are in the results section. TELEMETRY STRIPS-SCAN 02/27/2016 Results for this 8:01 AM [facility] DRIVER procedure are in the results section. PULMONARY FUNCTION 02/26/2016 Results for this STUDY-SCAN 11:30 AM [facility] DRIVER procedure are in the results section. PROCEDURE RECORD-SCAN 02/26/2016 Results for this 11:30 AM [facility] DRIVER procedure are in the results section. PROCEDURE RECORD-SCAN 02/26/2016 Results for this 11:29 AM HA[facility] DRIVER procedure are in the results section. ECG UNCONFIRMED-SCAN 02/26/2016 Results for this 11:26 AM [facility] DRIVER procedure are in the results section. ECG UNCONFIRMED-SCAN 02/26/2016 Results for this 11:26 AM [facility] DRIVER procedure are in the results section. ECG UNCONFIRMED-SCAN 02/26/2016 Results for this 11:26 AM [facility] DRIVER procedure are in the results section. ECG-SCAN 02/26/2016 Results for this 11:25 AM HA[facility] DRIVER procedure are in the results section. ECG-SCAN 02/26/2016 Results for this 9:26 AM [facility] DRIVER procedure are in the results section. ECG-SCAN 02/21/2016 Results for this 7:14 AM [facility] DRIVER procedure are in the results section. ECG-SCAN 02/20/2016 Results for this 7:15 AM [facility] DRIVER procedure are in the results section. ANESTHESIA Routine 02/18/2016 Results for this TRANSEESOPHAGEAL 11:53 AM HAUL DRIVER procedure are in the ECHOCARDIOGRAM results section. ANESTHESIA PULMONARY Routine 02/18/2016 Results for this ARTERY CATHETER INSERTION 11:53 AM HA[facility] DRIVER procedure are in the results section. ANESTHESIA CENTRAL LINE Routine 02/18/2016 Results for this INSERTION 11:53 AM HA[facility] DRIVER procedure are in the results section. ANESTHESIA ARTERIAL LINE Routine 02/18/2016 Results for this INSERTION 11:53 AM [facility] DRIVER procedure are in the results section. ECG-SCAN 02/14/2016 Results for this 8:56 AM HAUL DRIVER procedure are in the results section. Results [...] Results - TueMar 10, 2016 2:57 PM HAUL DRIVER CHEST 2 VIEWS CLINICAL HISTORY: Male, 75 [...] - Sun Feb 22, 2016 9:35 AM HAUL DRIVER Procedure: CHEST SINGLE VIEW Clinical Indication: Atelectasis [...] included. Component Value Range PH-ART-POC 7.35 7.35-7.45 NRG2-RCK-EZU 39 35-45 MMHG PO2-ART-POC 84 80-100 MMHG Base Def-ART-POC 5.0 MMOL/L O2 Sat-ART-POC 96.0 95-99 % Fxdszuqxsbq-TJT-VPR 21.2 21-28 MMOL/L POC IONIZED CALCIUM (02/18/2016 [...] Hematocrit POC 26.0 (L) 40-50 % LINE PLCIL 1V CXR (02/18/2016 12:36 PM) Impressions 1.Recent postoperative changes of a median sternotomy and prosthetic aortic valve placement. 2.Mild atelectasis within both lung bases. Finalized by Lamine Grajeda M.D. on 02/18/2016 12:48 PM. Dictated by Lamine Grajeda M.D. on 02/18/2016 12:44 PM. Narrative LINE [facility] 1V CXR Clinical Indication: Male, 75 years old. ET tube and line placement Comparison: X-ray February 17, 2016 Findings: ET tube has been placed with its tip projected above the level of the angelo. NG tube is been placed with the distal tip coursing below the level of the diaphragm though not included in the suniw-ow-yjqt of this x-ray.Right IJ Mineral Fabiana catheter is been placed with the [...] Results - TueFeb 18, 2016 12:51 PM HAUL DRIVER LINE PLCMT 1V CXR Clinical Indication: Male, 75 years old. ET tube and line placement Comparison: X-ray February 17, 2016 Findings: ET tube has been placed with its tip projected above the level of the angelo. NG tube is been placed with the distal tip coursing below the level of the diaphragm though not included in the pcfod-vh-cwmx of this x-ray. Right IJ Mineral Fabiana catheter is been placed with the [...] PM) Component Value Range PATHOLOGY REPORT [facility] [email or web address] Mercy Rosado MD, PhD, Director of Anatomic Pathology Department of Pathology and Laboratory Medicine [address] [place] [id number] Surgical Pathology Office: [phone] SURGICAL PATHOLOGY REPORT NAME: AJ CONNOLLY Kuldeep SURG PATH #: [id number] MR #: [id number] SPECIMEN CLASS: SR BILLING #: [id number] ALT ID #: LOCATION: [facility] DATE OF PROCEDURE: 02/18/2016 AGE: 75 SEX: [...] +++Electronically Signed Out By+++ cristopher/02/19/2016 Interpreted by: Talyor Valenzuela M.D. 02/19/2016 ################################################## ###################### Material Received: A: aortic valve leaflet History: 75-year-old male with a clinical history of aortic regurgitation. Gross Description: A. Fixative: Formalin Labeled: "Aortic valve leaflet" Dimensions: 2.5 x 2.0 x 0.3 cm aggregate Calcifications: No Cassette A1- Loaders sections of valve. (jkh) jkh/02/18/2016 ANESTHESIA TRANSEESOPHAGEAL [...] Physician requesting echo: MARY ADAMS CPT codes: 86768 - ARNIE 2D imaging (w or w/o M-mode) including probe placement, image acquisition, interpretation & report, 40947 - PWD and/or CWD f/u or limited study and 01794 - Color flow velocity mapping Patient location: [...] Apical anterior: normal Apical inferior: normal [place] Basal anteroseptal: normal Basal inferolateral: normal Mid anteroseptal: normal Mid inferolateral: normal Apical lateral: normal Apical septal: normal [place]: normal Mid [place] Mid anteroseptal: normal Mid anterior: [...] Physician requesting echo: MARY ADAMS CPT codes: 92806 - ARNIE 2D imaging (w or w/o M-mode) including probe placement, image acquisition, interpretation & report, 40948 - PWD and/or CWD f/u or limited study and 30650 - Color flow velocity mapping Patient location: [...] Apical anterior: normal Apical inferior: normal [place] Basal anteroseptal: normal Basal inferolateral: normal Mid anteroseptal: normal Mid inferolateral: normal Apical lateral: normal Apical septal: normal [place]: normal Mid [place] Mid anteroseptal: normal Mid anterior: [...] Physician requesting echo: MARY ADAMS CPT codes: 75113 - ARNIE 2D imaging (w or w/o M-mode) including probe placement, image acquisition, interpretation & report, 86025 - PWD and/or CWD f/u or limited study and 10560 - Color flow velocity mapping Patient location: [...] Apical anterior: normal Apical inferior: normal [place] Basal anteroseptal: normal Basal inferolateral: normal Mid anteroseptal: normal Mid inferolateral: normal Apical lateral: normal Apical septal: normal [place]: normal Mid [place] Mid anteroseptal: normal Mid anterior: [...] Physician requesting echo: MARY ADAMS CPT codes: 17035 - ARNIE 2D imaging (w or w/o M-mode) including probe placement, image acquisition, interpretation & report, 47093 - PWD and/or CWD f/u or limited study and 22009 - Color flow velocity mapping Patient location: [...] Apical anterior: normal Apical inferior: normal [place] Basal anteroseptal: normal Basal inferolateral: normal Mid anteroseptal: normal Mid inferolateral: normal Apical lateral: normal Apical septal: normal [place]: normal Mid [place] Mid anteroseptal: normal Mid anterior: [...] Range Color,UA YELLOW Turbidity,UA CLEAR CLEAR-CLEAR Specific [place]-Urine 1.017 1.003-1.035 pH,UA 6.0 5.0-8.0 Protein,UA 1+ [...] Screen NEG Electronic Crossmatch YES Unit Number [id number] Blood Component Type RBC,ADSOL,LEUKO REDUCED,2ND CONT. Unit Division 0 Status OF Unit REL FROM ALLOC Transfusion Status OK TO TRANSFUSE Crossmatch Result COMPATIBLE,ELECTRONIC Unit Number [id number] Blood Component Type RBC,ADSOL,LEUKO REDUCED Unit Division 0 Status OF Unit REL FROM ALLOC Transfusion Status OK TO TRANSFUSE Crossmatch Result COMPATIBLE,ELECTRONIC Unit Number [id number] Blood Component Type RBC,ADSOL,LEUKO REDUCED Unit Division 0 Status OF Unit TRANSFUSED Transfusion Status OK TO TRANSFUSE Crossmatch Result COMPATIBLE,ELECTRONIC Unit Number [id number] Blood Component Type RBC,ADSOL,LEUKO REDUCED Unit Division 0 Status OF Unit REL FROM ALLOC Transfusion Status OK TO TRANSFUSE Crossmatch Result COMPATIBLE,ELECTRONIC Unit Number [id number] Blood Component Type RBC,ADSOL,LEUKO REDUCED Unit Division [...] Procedure Note TueFeb 13, 2016 7:23 PM [facility] CARDIAC CATHETERIZATION REPORT Page 2 AJ Power : 1940 #: [id number] MR #/Billing ID #: [id number] / [id number] DATE: 02/13/2016 NEWS LIBRARY DIRECTOR: Robin Suarez MD DICTATING PROVIDER: Raffi Valencia [...] modified Seldinger technique. Over a wire, a 6-Romanian sheath was placed. After that, we used [...] supervised the entire procedure. MD RUDY Miramontes/Елена /[id number] cc: - Chino Fitzgerald MD FERRITIN (02/14/2016 [...] % FEV1-Pre 1.88 L FEV1-%Pred-Pre 62 % RJM0662-Ecz 1.44 L/sec FGQ5411-%Pred-Pre 67 % PEF-Pre 303.1 L/min PV CAROTID [...] Results - TueFeb 13, 2016 3:28 PM HAUL DRIVER Single view [employer]. Clinical Indication: 75 years [...] EF 60 % Referring Provider Chino Fitzgerald ECHO PV [employer]ING SALES REPRESENTATIVE Vanesa KNUTSON LVIDD 5.7 4.2-5.9 cm LVIDS [...] Horton et al. Am J. Cardiol. 2008, 101:6845-2566. The "goal" should be less than 130 [...]
[~2016-06-16 10:17] MED LIST changes: -LIDOCAINE 1% INJ 20 ML (XYLOCAINE) VIAL ONE
== END 2016-06-17 | disposition home or self-care (01) ==
LOC: CR 10:17
PROVIDERS: ATTEND Internal Medicine Cardiovascular Disease
DX: Z48.812 Encounter for surgical aftercare following surgery on the circulatory system (principal); Z95.2 Presence of prosthetic heart valve
CPT/HCPCS: 93798

== ENCOUNTER 2016-06-21 10:04 | Outpatient (RCR) | payer MEDICARE | END 2016-06-21 14:20 | disposition home or self-care (01) | LOC: CR 10:04 | PROVIDERS: ATTEND Internal Medicine Cardiovascular Disease | DX: Z48.812 Encounter for surgical aftercare following surgery on the circulatory system (principal); Z95.2 Presence of prosthetic heart valve | CPT/HCPCS: 93798 ==

== ENCOUNTER 2016-07-08 14:14 | Outpatient (RCR) | payer MEDICARE ==
[2016-07-08 15:26] LABS: BASOPHILS % (AUTO) 0 % (0-10); EOSINOPHILS # (AUTO) 0.6 10^3/uL (0.0-0.3); EOSINOPHILS % (AUTO) 7 % (0-10); LYMPHOCYTES # (AUTO) 2.4 X 10^3 (1.0-4.0); LYMPHOCYTES % (AUTO) 29 % (12-44); MEAN CORPUSCULAR HEMOGLOBIN 27 PG (25-34); MEAN CORPUSCULAR HGB CONC 33 G/DL (32-36); MEAN CORPUSCULAR VOLUME 84 FL (80-99); MEAN PLATELET VOLUME 9.4 FL (7.4-10.4); MONOCYTES # (AUTO) 0.7 X 10^3 (0.0-1.0); MONOCYTES % (AUTO) 8 % (0-12); NEUTROPHILS # (AUTO) 4.6 X 10^3 (1.8-7.8); NEUTROPHILS % (AUTO) 56 % (42-75); PLATELET COUNT 278 10^3/uL (130-400); RED BLOOD COUNT 4.88 10^6/uL (4.35-5.85); WHITE BLOOD COUNT 8.3 10^3/uL (4.3-11.0)
[2016-07-08 15:58] LABS: ALANINE AMINOTRANSFERASE 22 U/L (0-55); ALBUMIN 3.9 G/DL (3.2-4.5); ANION GAP 8 MMOL/L (5-14); ASPARTATE AMINO TRANSFERASE 27 U/L (5-34); BILIRUBIN,TOTAL 0.2 MG/DL (0.1-1.0); BLOOD UREA NITROGEN 14 MG/DL (7-18); BUN/CREATININE RATIO 13; CALCIUM 9.5 MG/DL (8.5-10.1); CARBON DIOXIDE 27 MMOL/L (21-32); CHLORIDE 100 MMOL/L (98-107); CREATININE SERUM 1.11 MG/DL (0.60-1.30); GFR ESTIMATED > 60; GLUCOSE 126 MG/DL (70-105); POTASSIUM 4.2 MMOL/L (3.6-5.0); SODIUM 135 MMOL/L (135-145); TOTAL PROTEIN 7.2 G/DL (6.4-8.2)
== END 2016-10-06 | disposition home or self-care (01) ==
LOC: ONC 14:14
PROVIDERS: ATTEND Internal Medicine Hematology & Oncology
DX: D50.0 Iron deficiency anemia secondary to blood loss (chronic) (principal); Z95.2 Presence of prosthetic heart valve
CPT/HCPCS: 80053; 82728; 83540; 85025; 99213

== ENCOUNTER 2016-11-11 13:32 | Outpatient (RCR) | payer MEDICARE ==
[2016-11-11 13:48] LABS: BASOPHILS % (AUTO) 0 % (0-10); EOSINOPHILS # (AUTO) 0.2 10^3/uL (0.0-0.3); EOSINOPHILS % (AUTO) 3 % (0-10); LYMPHOCYTES # (AUTO) 3.4 X 10^3 (1.0-4.0); LYMPHOCYTES % (AUTO) 40 % (12-44); MEAN CORPUSCULAR HEMOGLOBIN 30 PG (25-34); MEAN CORPUSCULAR HGB CONC 34 G/DL (32-36); MEAN CORPUSCULAR VOLUME 87 FL (80-99); MEAN PLATELET VOLUME 9.2 FL (7.4-10.4); MONOCYTES # (AUTO) 0.8 X 10^3 (0.0-1.0); MONOCYTES % (AUTO) 9 % (0-12); NEUTROPHILS # (AUTO) 4.1 X 10^3 (1.8-7.8); NEUTROPHILS % (AUTO) 48 % (42-75); PLATELET COUNT 255 10^3/uL (130-400); RED CELL DISTRIBUTION WIDTH 14.1 % (10.0-14.5); WHITE BLOOD COUNT 8.6 10^3/uL (4.3-11.0)
[2016-11-11 14:31] LABS: ALBUMIN 4.3 GM/DL (3.2-4.5); BILIRUBIN,TOTAL 0.5 MG/DL (0.1-1.0); CALCIUM 10.1 MG/DL (8.5-10.1); CREATININE SERUM 1.28 MG/DL (0.60-1.30); POTASSIUM 4.6 MMOL/L (3.6-5.0); TOTAL PROTEIN 7.8 GM/DL (6.4-8.2)
== END 2016-11-20 | disposition home or self-care (01) ==
LOC: ONC 13:32
PROVIDERS: ATTEND Internal Medicine Hematology & Oncology
DX: D50.0 Iron deficiency anemia secondary to blood loss (chronic); Z79.899 Other long term (current) drug therapy; I33.0 Acute and subacute infective endocarditis; Z95.2 Presence of prosthetic heart valve
CPT/HCPCS: 36415; 80053; 82728; 85025; 99213

== ENCOUNTER → 2016-11-12 | Outpatient (CLI) | payer MEDICARE | LOC: CARD 12:51 | PROVIDERS: ATTEND Physician Assistant | DX: I10 Essential (primary) hypertension (principal); I38 Endocarditis, valve unspecified; I48.0 Paroxysmal atrial fibrillation; Z95.2 Presence of prosthetic heart valve | CPT/HCPCS: 93306 ==

== ENCOUNTER → 2020-12-31 | Outpatient (CLI) | payer MEDICARE ==
[~2020-12-31] MED LIST changes: -CALC-6 PO; +CALC1TAB84 PO; +CATHETER FLUSH 10 ML SYR IV PRN; -FERR-74 PO; +FERR325T18 PO; -LISI-552 PO; +LISI20TA26 PO; +METF-397 PO; -METF500T4 PO; +MULT-567 PO; -MULT1TAB69 PO; -RANI-515 PO; +RANI-609 PO; +REGADENOSON 0.4 MG/5 ML SYR (LEXISCAN) IV ONE
[2020-12-31 13:04] VITALS: BP 152/92
--- NOTE | 2020-12-31 15:36 | Cardiology Stress Test Report ---
Stress Test Report Date of Procedure/Referring: Date of Procedure: Dec 31, 2020 PCP Wendy Ahuja MD Admitting Physician Nikita Zurita Indications: HTN Baseline Heart Rate: 100 Baseline Blood Pressure: Blood Pressure Systolic: 152 Blood Pressure Diastolic: 92 Baseline Vitals Vital Signs Date Time Temp Pulse Resp B/P (MAP) Pulse Ox O2 Delivery O2 Flow Rate FiO2 12/31/20 13:04 94 18 152/92 (112) 98 Room Air Baseline EKG: Baseline EKG: NSR Summary After explaining the procedure to the patient, he signed a consent and then brought to the stress nuclear laboratory. Patient received 0.4 mg Lexiscan for stress test, ECG, heart rate and blood pressure were monitored continuously. Resting and stress dose of radio tracer were injected, imaging was acquired and reviewed in short axis, horizontal long axis and vertical long axis views. TID: 1.06 SSS: 5 SDS: 1 EF: 60 1. Patient tolerated Lexiscan well 2. Baseline sinus rhythm with occasional PVCs persisted during test 3. Diaphragmatic attenuation with mild decrease uptake involving the mid to apical inferolateral wall which is fixed, no significant ischemia or infarction was noted 4. Normal left ventricular size, normal contractility, EF 60% WENDY AHUJA MD Dec 31, 2020 15:36
== END ==
LOC: CARD 11:45
PROVIDERS: ATTEND Internal Medicine Cardiovascular Disease
DX: I10 Essential (primary) hypertension (principal); I25.10 Atherosclerotic heart disease of native coronary artery without angina pectoris
CPT/HCPCS: 78452; 93017; A9502

== ENCOUNTER → 2021-12-30 | Outpatient (CLI) | payer MEDICARE ==
[~2021-12-30] MED LIST changes: -CATHETER FLUSH 10 ML SYR IV PRN; +CATHETER FLUSH 10 ML SYR IVP PRN
[2021-12-30 13:08] VITALS: BP 172/86
--- NOTE | 2021-12-30 14:51 | Cardiology Stress Test Report ---
Stress Test Report Date of Procedure/Referring: Date of Procedure: Dec 30, 2021 PCP Nikita Zurita Admitting Physician Admitting Physician: Attending Physician: Wendy Ahuja MD Baseline Heart Rate: 102 Baseline Blood Pressure: Blood Pressure Systolic: 172 Blood Pressure Diastolic: 86 Baseline Vitals Vital Signs Date Time Temp Pulse Resp B/P (MAP) Pulse Ox O2 Delivery O2 Flow Rate FiO2 12/30/21 13:08 102 17 172/86 (114) Baseline EKG: Baseline EKG: NSR Summary After explaining the procedure to the patient, he signed a consent and then brought to the stress nuclear laboratory. Patient received 0.4 mg Lexiscan for stress test, ECG, heart rate and blood pressure were monitored continuously. Resting and stress dose of radio tracer were injected, imaging was acquired and reviewed in short axis, horizontal long axis and vertical long axis views. TID: 1.09 SSS: 9 SDS: 5 EF: 66 1. Patient tolerated Lexiscan well 2. Frequent PVCs induced by Lexiscan injection. No other EKG changes 3. Reversible ischemia involving the lateral wall inferolateral and anterolateral wall 4. Normal left ventricular size, ejection fraction 66% WENDY AHUJA MD Dec 30, 2021 14:51
== END ==
LOC: CARD 11:30
PROVIDERS: ATTEND Internal Medicine Cardiovascular Disease
DX: I25.9 Chronic ischemic heart disease, unspecified (principal); I10 Essential (primary) hypertension
CPT/HCPCS: 78452; 93017; A9502; C8929; 93306

== ENCOUNTER 2022-01-06 07:37 | Day surgery (SDC) | payer MEDICARE ==
[2022-01-06] VITALS (7 sets, daily range): BP systolic 119–186; BP diastolic 62–101
[~2022-01-06] VITALS: Ht 177.8 cm; Wt 105.8 kg
[~2022-01-06 07:37] MED LIST changes: -CATHETER FLUSH 10 ML SYR IVP PRN; -REGADENOSON 0.4 MG/5 ML SYR (LEXISCAN) IV ONE
[2022-01-06] MEDS ORDERED: NS IV 1000 ML 1,000 ML IV SCH ×2 (07:45→11:15)
[2022-01-06] MEDS ORDERED: LIDOCAINE 1% INJ 30 ML (XYLOCAINE) VIAL ONE (07:52)
[2022-01-06] MEDS ORDERED: NS IV 1000 ML 1,000 ML ONE (07:52)
[2022-01-06] MEDS ORDERED: HEParin (CATH LAB) 2,000 ML IV ONE (07:52)
[2022-01-06 08:14] LABS: HEMATOCRIT 43 % (40-54); HEMOGLOBIN 14.1 g/dL (13.3-17.7); MEAN CORPUSCULAR HEMOGLOBIN 28 pg (25-34); MEAN CORPUSCULAR HGB CONC 33 g/dL (32-36); MEAN CORPUSCULAR VOLUME 85 fL (80-99); MEAN PLATELET VOLUME 9.7 fL (9.0-12.2); PLATELET COUNT 234 10^3/uL (130-400); WHITE BLOOD COUNT 10.1 10^3/uL (4.3-11.0)
[2022-01-06 08:16] LABS: BILIRUBIN,URINE NEGATIVE (NEGATIVE); CLARITY,URINE CLEAR; COLOR,URINE YELLOW; GLUCOSE, URINE (UA) NEGATIVE (NEGATIVE); KETONES,URINE NEGATIVE (NEGATIVE); LEUKOCYTE ESTERASE ,URINE NEGATIVE (NEGATIVE); NITRITE,URINE NEGATIVE (NEGATIVE); PROTEIN,URINE 2+ (NEGATIVE)
[2022-01-06 08:23] LABS: BACTERIA,URINE NEGATIVE /HPF
[2022-01-06 08:29] LABS: INR 1.1 (0.8-1.4); PROTHROMBIN TIME PATIENT 14.1 SEC (12.2-14.7)
[2022-01-06 08:34] LABS: ALBUMIN 4.5 GM/DL (3.2-4.5); BILIRUBIN,TOTAL 0.5 MG/DL (0.1-1.0); CALCIUM 9.8 MG/DL (8.5-10.1); CREATININE SERUM 1.22 MG/DL (0.60-1.30); POTASSIUM 4.2 MMOL/L (3.6-5.0); TOTAL PROTEIN 7.8 GM/DL (6.4-8.2)
--- NOTE | 2022-01-06 08:38 | Diagnostic Imaging Report ---
EXAMINATION: Chest radiograph, portable AP view. DATE: 01/06/2022 8:12 AM INDICATION: 81-year-old male, exam prior to procedure. COMPARISON: February 12, 2016. FINDINGS: There are median sternotomy wires. There is valvular hardware. Heart size and mediastinal contours are unchanged. There is no identified pneumothorax. There is no large pleural effusion. There are mild linear opacities in left lung base most likely relating to atelectasis and/or scarring. There are right acromioclavicular degenerative changes. IMPRESSION: 1. No identified acute cardiopulmonary abnormality. Dictated by: Dictated on workstation # [id number]
[2022-01-06] MEDS ORDERED: ATOR40TA70 PO (08:59)
[2022-01-06] MEDS ORDERED: LISI10TA25 PO (08:59)
[2022-01-06] MEDS ORDERED: TURM500T PO (08:59)
[2022-01-06] MEDS ORDERED: ZOLP10TA PO (08:59)
[2022-01-06] MEDS ORDERED: TIZA2CAP9 PO (08:59)
[2022-01-06] MEDS ORDERED: AMIT50TA3 PO (08:59)
[2022-01-06] MEDS ORDERED: METO50TA15 PO (08:59)
[2022-01-06] MEDS ORDERED: HEParin 1000 UNIT/ML (10ML VIAL) FOR BOLUS ONE (09:04)
[2022-01-06] MEDS ORDERED: MIDAZOLAM 5 MG/5 ML (VERSED) VIAL ONE (09:04)
[2022-01-06] MEDS ORDERED: fentaNYL INJ 100 MCG/2 ML AMP ONE (09:04)
[2022-01-06] MEDS ORDERED: NITRO DRIP 25000 MCG/D5W 250 ML IV ONE (09:04)
[2022-01-06] MEDS ORDERED: VERAPAMIL 5 MG/2 ML (CALAN) VIAL IV ONE (09:04)
--- NOTE | 2022-01-06 10:18 | Cardiac Procedure Note-CS/ASA ---
Pre-Procedure Note Pre-Op Procedure Note Date of Available H&P: Dec 31, 2021 Date H&P Reviewed: Jan 06, 2022 Time H&P Reviewed: 09:00 History & Physical: H&P Reviewed, Patient Examed, No changes noted Pre-Operative Diagnosis: CAD Conscious Sedation Pre-Proced Time 10:17 ASA Score 3 For ASA 3 and 4: Consider anesthesia and medical clearance. Also, for patients with a history of failed moderate sedation consider anesthesia. Airway Lungs Heart ASA score ASA 1: a normal healthy patient ASA 2: a patient with a mild systemic disease (mid diabetes, controlled hypertension, obesity ASA 3: a patient with a severe systemic disease that limits activity (angina, COPD, prior Myocardial infarction) ASA 4: a patient with an incapacitating disease that is a constant threat to life (CHF, renal failure) ASA 5: a moribund patient not expected to survive 24 hrs. (ruptured aneurysm) ASA 6: a declared brain- patient whose organs are being harvested. For emergent operations, add the letter E after the classification Mallampati Classification Grade 3 Sedation Plan Analgesia, Amnesia, Plan communicated to team members, Discussed options with patient/fam, Discussed risks with patient/fam The patient is an appropriate candidate to undergo the planned procedure, sedation, and anesthesia. The patient immediately re-assessed prior to indication. WENDY BAI MD Jan 06, 2022 10:18
[2022-01-06] MEDS ORDERED: METF-397 PO (11:06)
--- NOTE | 2022-01-06 11:06 | Discharge Inst-Post CATH ---
Discharge Inst-CATH/EP Problems Reviewed?: Yes Post Cardiac Cath/EP D/C Inst Follow Up/Plan Hold metformin for [address] Ahuja's office in 2 to 4 weeks <b>CARDIAC CATH/EP PROCEDURE DISCHARGE INSTRUCTIONS</b> ACTIVITY * Go Home directly and rest. * Limit activity of the leg (or wrist if it was used) for 7 days including aerobics, swimming, jogging, bicycling, etc. * Restrict stair-climbing for 7 days if possible, if not, climb up with your non-cath leg, then bring together on the same step. * Avoid lifting, pushing, pulling or excessive movement of the affected extremity for 7 days. * Customary sexual activity may be resumed after 2 days-use caution not to use a position that strains or causes pain to the affected extremity. * No driving for 24 hours. * NO SMOKING. * Avoid straining for bowel movements for 7 days. * Gentle walking on level ground is allowed. * Returning to work will depend on the type of procedure and the results. Your doctor will discuss this with you. CALL YOUR DOCTOR FOR ANY OF THE FOLLOWING: *If bleeding from the puncture site occurs- Apply gentle pressure to site with clean cloth and call your doctor or EMS. * If a knot or lump forms under the skin, increases in size, or causes pain. * If bruising appears to be worsening or moving further down your leg instead of disappearing. * Temperature above 101 F. CARE OF YOUR GROIN INCISION; * Bruising or purple discoloration of the skin near the puncture site is common. * You may shower only, no bathtub bathing for 5 days. Be careful to avoid slipping as your leg may feel stiff. * If a closure device was used on your femoral artery, please see the attached guide regarding care of the device and your leg. * Leave dressing on FOR 24 hours. CARE OF YOUR WRIST INCISION; * Bruising or purple discoloration of the skin near the puncture site is common. * You may shower. * DO NOT submerge wrist. * Leave dressing on FOR 24 hours. WENDY AHUJA MD Jan 06, 2022 11:06
--- NOTE | 2022-01-06 11:09 | Cardiac Cath Report ---
Cardiac Cath Report Physician (s)/Door Frame Assembler Machine (s) Physician WENDY BAI MD Pre-Procedure Diagnosis Pre-Procedure Diagnosis: CAD Post-Procedure Note Procedure Start Date: Jan 06, 2022 Name of Procedure: Coronary angiogram Findings/Procedure Note PROCEDURE NOTE: 81 years old gentleman with history of aortic valve replacement, had an abnormal stress test, scheduled for cardiac catheterization possible PTCA. After explaining the procedure to the patient, all pros and cons were explained, all questions were answered. The patient signed the consent and then he was placed on the cardiac catheterization laboratory. Groin was prepped SL fashion local anesthesia was used. Sheath placed in the right radial artery, I had difficulty advancing the J-wire through the brachial artery, baby J Glidewire was used with success. [place] catheter was advanced and engaged the right and left coronary system, angiogram was done. At the end of the procedure the sheath was removed. Vascular band was used FINDINGS: ANATOMY: Left Main is free of obstructive disease Left Anterior Descending has mild tortuosity with no obstructive disease Left Circumflex has no obstructive disease Right Coronary Artery is tortuous artery, moderate in size, 40 to 50% stenosis in the mid right coronary artery nonobstructive disease Fluoroscopy of struts of valve in the aortic position. CONCLUSION: 1. Tortuous right coronary artery with 40 to 50% stenosis in the mid portion, otherwise no significant obstructive coronary system 2. 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
== END 2022-01-06 17:00 | disposition home or self-care (01) ==
LOC: CATH 07:37 → SDC 11:25 → CATH 17:00
PROVIDERS: ATTEND Internal Medicine Cardiovascular Disease
DX: I25.10 Atherosclerotic heart disease of native coronary artery without angina pectoris (principal); I10 Essential (primary) hypertension; E11.9 Type 2 diabetes mellitus without complications; E66.9 Obesity, unspecified; I65.23 Occlusion and stenosis of bilateral carotid arteries; E78.2 Mixed hyperlipidemia; I48.0 Paroxysmal atrial fibrillation; Z79.84 Long term (current) use of oral hypoglycemic drugs; Z95.2 Presence of prosthetic heart valve; Z68.33 Body mass index [BMI] 33.0-33.9, adult; Z87.891 Personal history of nicotine dependence
CPT/HCPCS: 71045; 80053; 80061; 81000; 85027; 85610; 85730; 87081; 93005; 93454; C1769; C1894; 36415